=== PATIENT | male | born 1965 | race Caucasian/White ===

== ENCOUNTER → 2020-08-04 00:38 | Outpatient (CLI) | payer OTHER, SELFPAY ==
[2020-08-04 20:54] LABS: SARS-CoV-2 RNA PCR Negative
== END ==
PROVIDERS: PCP Family Medicine; Visit Provider Specialist
DX: Z01.812 Encounter for preprocedural laboratory examination (principal); Z20.822 Contact with and (suspected) exposure to COVID-19
CPT/HCPCS: C9803; U0003; U0005

== ENCOUNTER 2020-08-08 04:46 | Day surgery (SDC) | payer OTHER, SELFPAY ==
[2020-08-07 09:29] VITALS: BMI 31.5
[2020-08-08] VITALS (13 sets, daily range): BP systolic 115–131; BP diastolic 73–94; PULSE 56–64; RESP 13–22; TEMP 36.2; O2SAT 96–99; BMI 30.8
[2020-08-08 07:43] LABS: Basophils Percent Auto 0.4 % (0.2-1.2); Eosinophils Absolute Auto 0.1 K/mm3 (0-0.3); Eosinophils Percent Auto 1.9 % (0-4.4); Hematocrit 46.8 % (42.0-52.0); Hemoglobin 16.3 g/dL (14.0-18.0); Immature Granulocyte Absolute 0.03 K/mm3 (0.00-0.031); Immature Granulocyte Percent A 0.4 % (0-0.5); Lymphocytes Absolute Auto 2.14 K/mm3 (0.9-3.2); Lymphocytes Percent Auto 29.6 % (18.3-44.2); Mean Corpuscular HGB Conc 34.8 g/dl (32-36); Mean Corpuscular Hemoglobin 31.2 pg (26-34); Mean Corpuscular Volume 89.5 fl (80-100); Mean Platelet Volume 9.4 fl (7.4-10.4); Monocytes Absolute Auto 0.5 K/mm3 (0.1-0.6); Monocytes Percent Auto 6.5 % (2.6-8.5); Neutrophils Absolute Auto 4.4 K/mm3 (1.3-6.7); Neutrophils Percent Auto 61.2 % (45.5-73.1); Platelet Count Result 159 k/mm3 (150-375); Red Blood Count 5.23 M/mm3 (4.6-6.20); Red Cell Distribution Width 12.6 % (11.5-14.5); White Blood Count 7.2 K/mm3 (4.5-10.0)
[2020-08-08 07:53] LABS: Anion Gap 8 mmol/L (8-16); Blood Urea Nitrogen 17 mg/dL (9-20); Carbon Dioxide 27 mmol/L (22-30); Chloride 104 mmol/L (98-107); Estimated CRCL calculation 102 ml/min; Estimated Glomerular Filt Rate > 60; Glucose 92 mg/dL (75-110); Potassium 4.1 mmol/L (3.4-5.0); Sodium 139 mmol/L (137-145)
[2020-08-08 07:54] LABS: INR 0.9; Prothrombin Time 12.6 Seconds (11.1-14.7)
--- NOTE | 2020-08-08 09:13 | WPDMODSED ---
Moderate Sedation Note-Pt Data Patient Data Diagnosis: Coronary artery disease with previous stenting of the mid LAD episode of chest pain when exposed to cold snow shoveling 2 months ago Present Complaint: exertional dyspnea Procedure to be performed/Plan: left heart catheterization Allergies Allergy/AdvReac Type Severity Reaction Status Date / Time tramadol AdvReac Intermediate Vomiting Verified 08/08/20 07:29 hydrocodone AdvReac Unknown Nausea and Verified 08/08/20 07:29 Vomiting Home Medications Medication Instructions Recorded Confirmed Type Fish Oil 1 cap PO DAILY 02/17/19 08/07/20 History Probiotic 1 cap PO DAILY 02/17/19 08/07/20 History ascorbic acid (vitamin C) [Vitamin 500 mg PO DAILY 02/17/19 08/07/20 History C] aspirin [Aspir-Low] 81 mg PO DAILY 02/17/19 08/08/20 History clopidogrel 75 mg PO DAILY 02/17/19 08/08/20 History metoprolol succinate 25 mg PO DAILY 02/17/19 08/08/20 History rosuvastatin 5 mg PO DAILY 02/17/19 08/08/20 History vitamin B complex [B 1 tablet PO DAILY 08/07/20 08/07/20 History Complex-Vitamin B12] Current Medications: Active Medications Sodium Chloride (Normal Saline Iv) 500 mls @ 100 mls/hr IV CONT .Q5H TOMAS Sedation/Anesthesia: No previous sedation/anesthesia problems (including family history). [facility] Past Medical History Medical History CAD (coronary artery disease) Vision changes Weight gain Surgical History Surgical History Hx of heart artery stent x2 ( 1 in 2004, 1 in 2015) Family History Family History Father Family history of cardiovascular disease, Onset Age: 81 Family history of malignant neoplasm Family history of lymphoma Mother Family history of malignant neoplasm of uterus Social History Social History Smoking status: Never smoker Second hand tobacco smoke exposure: No Smoking end date: 04/13/12 Alcohol intake: never Substance use: never Living arrangements: with family Gender identity (if verbalized by the patient): Male Spiritual care concerns: No Mod Sed Physical Exam Physical Exam Pre Procedural Exam: Normal: Appearance, Throat, Airway, Lungs, Heart Size, Heart Rate, Heart Rhythm and Extremities Hours since solid foods: 12 Hours since liquid intake: 12 Internal Medicine - PN: Obj Da Vital Signs Vital Signs: Vital Signs - 24 hr 08/08/20 07:40 Temperature 36.2 C L Pulse Rate 57 L Respiratory Rate 19 Blood Pressure 131/94 H Pulse Oximetry 98 Meds/Results Medications: Active Medications Generic Name Dose Route Start Last Admin Trade Name Freq PRN Reason Stop Dose Admin Sodium Chloride 500 mls @ 100 mls/hr 08/08/20 07:00 Normal Saline Iv IV CONT .Q5H TOMAS Labs CBC & Chem 7: 08/08/20 07:30 08/08/20 07:30 Labs: Laboratory Results - last 24 hr 08/08/20 08/08/20 08/08/20 07:30 07:30 07:30 WBC 7.2 RBC 5.23 Hgb 16.3 Hct 46.8 MCV 89.5 MCH 31.2 MCHC 34.8 RDW 12.6 Plt Count 159 MPV 9.4 Immature Gran % (Auto) 0.4 Neut % (Auto) 61.2 Lymph % (Auto) 29.6 [place] % (Auto) 6.5 Eos % (Auto) 1.9 Baso % (Auto) 0.4 Lymph # (Auto) 2.14 [place] # (Auto) 0.5 Eos # (Auto) 0.1 Baso # (Auto) 0.0 Abs Immat Gran (auto) 0.03 Absolute Neuts (auto) 4.4 Absolute Nucleated RBC 0.0 Nucleated RBC % 0.0 PT 12.6 INR 0.9 Sodium 139 Potassium 4.1 Chloride 104 Carbon Dioxide 27 Anion Gap 8 BUN 17 Creatinine 0.90 Estim Creat Clear Calc 102 Estimated GFR > 60 Glucose 92 Calcium 9.0 ASA Classification/Sedation ASA Classification/Sedation ASA Class: II Emergent: No Risks: Risks, benefits and alternatives explained and patient/fa
--- NOTE | 2020-08-08 09:52 | WPDCARDPROC ---
Cardiac Cath Procedure Note Date of procedure:: 08/08/20 Performing physician:: Lonnie Merino MD Indication:: chest pain /exertional dyspnea Brief clinical history:: this is a 55-year-old man known to coronary disease who has had previous stenting of his mid LAD and 2 occasions. Stents are noted to have occluded jailed a very small mid diagonal branch. Two months ago in the extreme cold weather while snow shoveling the patient had some significant chest pain. Since then he has been experiencing increasing exertional dyspnea. Procedure Procedure performed:: Left ventriculography coronary angiography Sedation/Medication given:: fentanyl 50 mg Versed 2 mg case start time 9:23 a.m. case end time 9:39 a.m. sedation provided by Jacki Acosta RN, trained observer Access site:: right femoral artery Estimated blood loss:: 10-15 cc Procedure note:: patient was brought to the cardiac catheterization lab where the right femoral triangle was prepared and draped in usual fashion. Anesthesia was provided with 1% lidocaine infiltrated locally. Using modified Seldinger technique right femoral was punctured and a 5 [place]anian vascular sheath was placed. I then performed left heart catheterization. A 5 [place] angled pigtail catheter was used to measure left-sided hemodynamics, pullback pressures across the aortic valve and inject the left ventriculogram in the CRAWFORD projection. After this the pigtail catheter was withdrawn and replaced with 5 Tanzanian JR4 catheter this was used to engage inject the right coronary artery in 3 projections. Following this the left coronary was engaged using 5 [place] FL4 catheter which was then used to engage the left coronary artery in multiple projections. The cineangiograms were case terminated. Angiogram was done of the femoral artery through the sheath after which was elected to pull the sheath for compression. There were procedural complications. He left the laborer salvage no evidence of groin hematoma. Findings:: Hemodynamics: Central aortic pressure 1 42 over 84 left ventricle 144 over 5 end-diastolic of 15 there is no systolic gradient on pullback across the aortic valve. Left ventricle: The LV is normal in size all segments contract appropriately ejection fraction is 50-55% by visual estimation. There were no regional wall motion abnormalities identified. The left main coronary artery is nicely patent. The LAD is medium to small caliber vessel in this gentleman. There is no significant lesion in the LAD. The midportion of the vessel has 2 stents that are partially overlapping easily visible. There is no loss of lumen or stenosis in this segment of the LAD or any other segment of the vessel. The very small mid diagonal branch that is jailed by this area of stent is still patent is still visualized. There is a ostial 90% stenosis of the diagonal which is a chronic lesion seen in 2017. Circumflex is a medium caliber artery given rise to the marginal branch is angiographically it is free of disease. Right coronary artery is [id number] in caliber dominant to the posterior circulation and gives rise to an RPDA and several RPL branches. Angiographically the right coronary artery is unchanged in free of disease. Conclusion:: 1. Coronary artery disease which remains well revascularized angiographically save for a very small mid diagonal branch that is jailed by the 2 previously deployed stents in the LAD. No other significant coronary lesions are seen in the mid LAD which was stented remains widely patent no loss of lumen. 2. Normal left ventricular systolic function Lonnie Merino MD [facility]
--- NOTE | 2020-08-08 15:02 | SUR.PHASEII ---
1440- pt up to bathroom and to chair without difficulty. Groin remains WNL.
--- NOTE | 2020-08-08 16:10 | SUR.PHASEII ---
1545- D/C instructions reviewed with patient and . All questions answered at this time.
== END 2020-08-08 16:05 | disposition home or self-care (01) ==
PROVIDERS: PCP Family Medicine; Visit Provider Specialist
PROC: 4A023N7 Measurement of Cardiac Sampling and Pressure, Left Heart, Percutaneous Approach (ICD-10-PCS; CPT 93452; principal; 2020-08-08 08:30)
DX: I25.10 Atherosclerotic heart disease of native coronary artery without angina pectoris (principal); Z95.5 Presence of coronary angioplasty implant and graft; E78.5 Hyperlipidemia, unspecified; Z79.02 Long term (current) use of antithrombotics/antiplatelets; Z82.49 Family history of ischemic heart disease and other diseases of the circulatory system
CPT/HCPCS: 36415; 80048; 85025; 85610; 93458; C1887; C1894; J1644; J2250; J3010; J7040

== ENCOUNTER 2022-03-27 15:54 | Outpatient (CLI) | payer BC, SELFPAY ==
--- NOTE | ~2022-03-27 | XR_ITS ---
Clinical Indication: Pleuritic chest pain PA and lateral views of the chest: Comparison: 11/30/2017 Findings: The lungs are clear, without evidence of focal consolidation or pleural effusion. Cardiome diastinal silhouette is within normal limits. Bones and soft tissues are unremarkable. Impression: Normal chest. Reviewed, dictated and finalized at location [] AGE DIVER Impression: Normal chest.
[2022-03-27 16:25] LABS: Basophils Percent Auto 0.6 % (0.2-1.2); Eosinophils Absolute Auto 0.2 K/mm3 (0-0.3); Eosinophils Percent Auto 3.3 % (0-4.4); Hematocrit 43.3 % (42.0-52.0); Hemoglobin 14.9 g/dL (14.0-18.0); Immature Granulocyte Absolute 0.02 K/mm3 (0.00-0.031); Immature Granulocyte Percent A 0.3 % (0-0.5); Lymphocytes Absolute Auto 2.15 K/mm3 (0.9-3.2); Lymphocytes Percent Auto 30.9 % (18.3-44.2); Mean Corpuscular HGB Conc 34.4 g/dl (32-36); Mean Corpuscular Hemoglobin 30.5 pg (26-34); Mean Corpuscular Volume 88.5 fl (80-100); Mean Platelet Volume 9.4 fl (7.4-10.4); Monocytes Absolute Auto 0.7 K/mm3 (0.1-0.6); Monocytes Percent Auto 10.2 % (2.6-8.5); Neutrophils Absolute Auto 3.8 K/mm3 (1.3-6.7); Neutrophils Percent Auto 54.7 % (45.5-73.1); Platelet Count Result 180 k/mm3 (150-375); Red Blood Count 4.89 M/mm3 (4.6-6.20); Red Cell Distribution Width 12.8 % (11.5-14.5)
[2022-03-27 16:32] LABS: Alanine Aminotransferase 39 U/L (6-50); Albumin Level 4.7 g/dL (3.5-5.1); Alkaline Phosphatase 76 U/L (38-126); Anion Gap 7 mmol/L (8-16); Aspartate Amino Transferase 35 U/L (17-59); Bilirubin,Total 0.6 mg/dL (0.2-1.3); Blood Urea Nitrogen 14 mg/dL (9-20); Calcium 9.2 mg/dL (8.4-10.2); Carbon Dioxide 31 mmol/L (22-30); Chloride 98 mmol/L (98-107); Estimated Glomerular Filt Rate > 60; Glucose 97 mg/dL (65-110); Sodium 136 mmol/L (137-145)
[2022-03-27 16:56] LABS: D Dimer 0.38 ug/mL (<0.48)
== END 2022-03-27 15:55 | disposition home or self-care (01) ==
PROVIDERS: PCP Family Medicine; Visit Provider Internal Medicine Cardiovascular Disease
DX: R07.81 Pleurodynia (principal)
CPT/HCPCS: 36415; 71046; 80053; 85025; 85380

== ENCOUNTER 2022-04-15 09:53 | Outpatient (CLI) | payer BC, SELFPAY ==
--- NOTE | 2022-04-15 11:00 | NEURO_ITS ---
Impression: # History of left thoracic outlet syndrome and bilateral sciatica. Complains of shooting pain in lower extremities and bilateral hand numbness. # There is evidence of moderate, bilateral Carpal Tunnel Syndrome. # Reduced CMAPs were noted in bilateral tibial and peroneal motor nerve conduction studies, and Needle/EMG exam revealed chronic neurogenic changes in bilateral lower extremities. These findings can be seen in the setting of lower lumbosacral radiculopathy on both sides. Please note, paraspinal muscles were not examined. Motor Nerve Conduction Upper Extremities Median Nerve Conduction Velocity (m/sec) Terminal Latency (msec) Response Voltage(mV) Elbow-Wrist Wrist Elbow Wrist Right 53 6.5 4 5 Left 55 6.1 5 5 Ulnar Nerve Conduction Velocity (m/sec) Terminal Latency (msec) Response Voltage(mV) Above Elbow Below Elbow Wrist Above Elbow Below Elbow Wrist Right 50 60 2.8 7 7 8 Left 55 55 2.5 5 5 6 F-Wave Latency Median (ms) Ulnar (ms) Right 27.8 28.5 Left 28.1 28.9 Sensory Nerve Conduction Upper Extremities Median Nerve Stimulation Terminal Latency (msec) Wrist/Digit Response Voltage (uV) Wrist Right 6.1/7.0 9/23 Left 5.8/6.3 6/10 Ulnar Nerve Stimulation Terminal Latency (msec) Wrist/Digit Response Voltage (uV) Wrist Right 2.9 22 Left 3.0 16 Radial Nerve Terminal Latency (msec) Response Voltage(mV) Right 2.4 47 Left 2.2 22 Left Right Muscles Examined Fibrillation Fasciculation Scarcity Voltage Duration Left Right Left Right Left Right Left Right Left Right Deltoid Biceps X X Brachioradialis Triceps X X Pronator Teres X X Ext Indicis X X Ext Digitorum X X Abd Poll Brev X X 1st Dorsal Interosseus Paraspinals Motor Nerve Conduction Lower Extremities Peroneal Nerve Conduction Velocity (m/sec) Terminal Latency (msec) Response Voltage(mV) Popliteal space-Ankle Ankle Extensor Dig Brevis Popliteal space Ankle Right 40-37 4.5 2-2 1 Left 43-41 4.4 2-1 1 Tibial Nerve Conduction Velocity (m/sec) Terminal Latency (msec) Response Voltage(mV) Popliteal space-Ankle Ankle-Extensor Dig Brevis Popliteal space Ankle Right 43 4.3 1 1 Left 43 4.0 1 1 F-waves Peroneal Nerve (ms) Tibial Nerve (ms) Right 49.4 49.3 Left 48.6 48.8 Sensory Nerve Conduction Lower Extremities Sural Nerve Stimulation Terminal Latency (msec) Ankle Response Voltage (uV) Ankle Response Velocity (m/sec) Right 4.0 10 40 Left 3.8 13 42 Superficial Peroneal Nerve Stimulation Terminal Latency (msec) Ankle Response Voltage (uV) Ankle Response Velocity (m/sec) Right 3.8 20 42 Left 3.8 10 44 Left Right Muscles Examined Fibrillation Fasciculation Recruitment Voltage Duration Left Right Left Right Left Right Left Right Left Right X X Ant Tibialis Reduced Reduced X X Gastroc Reduced Reduced X X Fibularis Long X X Fl
== END 2022-04-15 09:54 | disposition home or self-care (01) ==
LOC: ANHNEURO 09:53
PROVIDERS: PCP Family Medicine; Visit Provider Family Medicine
DX: R20.2 Paresthesia of skin (principal)
CPT/HCPCS: 95886; 95913

== ENCOUNTER 2022-05-17 09:01 | Outpatient (CLI) | payer BC, SELFPAY ==
--- NOTE | ~2022-05-17 | MR_ITS ---
MRI of the lumbar spine Clinical History: Back pain Technique: Axial T2-weighted images, and sagittal T1-weighted, T2-weighted, and T2 fat-sat images wer e acquired. Findings: There is no fracture or subluxation of the lumbar spine. Vertebral bodies maintain normal h eight and alignment. No bone marrow signal abnormality identified. At L1-L2 and L2-L3, there is no disc bulge or herniation. No spinal canal stenosis or neural foramina l narrowing at these levels. At L3-L4, there is no disc bulge or herniation. There is mild facet joint hypertrophy. There is minim al left neural foraminal narrowing. Right neural foramen preserved. No spinal canal stenosis. At L4-L5, there is central disc protrusion superimposed upon a mild disc bulge. Facet arthropathy is also present, which contributes to severe thecal sac compression at this level. There is moderate lef t neural foraminal narrowing and mild right neural foraminal narrowing. At L5-S1, there is diffuse disc bulge and minimal facet arthropathy. No kiet spinal canal stenosis o r neural foraminal narrowing. Tiny annular fissure noted. Paravertebral soft tissues are unremarkable. Impression: Multifactorial degenerative spondylosis at L4-L5, resulting in severe thecal sac compression and bila teral neural foraminal narrowing, left worse than right. Mild degenerative spondylitic changes at L5-S1. Minimal left neural foraminal narrowing at L3-L4. Reviewed, dictated and finalized at [facility]. [employer] Impression: Multifactorial degenerative spondylosis at L4-L5, resulting in severe thecal sa c compression and bilateral neural foraminal narrowing, left worse than right. Mild degenerative spondylitic changes at L5-S1. Minimal left neural foraminal narrowing at L3-L4.
== END 2022-05-17 09:02 ==
PROVIDERS: PCP Family Medicine; Visit Provider Family Medicine
DX: M54.41 Lumbago with sciatica, right side (principal); M54.42 Lumbago with sciatica, left side; M47.896 Other spondylosis, lumbar region
CPT/HCPCS: 72148

== ENCOUNTER 2022-09-06 07:34 | Outpatient (CLI) | payer BC, SELFPAY ==
[2022-09-06 08:42] LABS: Alanine Aminotransferase 52 U/L (6-50); Albumin Level 4.8 g/dL (3.5-5.1); Alkaline Phosphatase 72 U/L (38-126); Anion Gap 11 mmol/L (8-16); Aspartate Amino Transferase 40 U/L (17-59); Bilirubin,Total 0.6 mg/dL (0.2-1.3); Blood Urea Nitrogen 15 mg/dL (9-20); Carbon Dioxide 24 mmol/L (22-30); Chloride 103 mmol/L (98-107); Cholesterol 138 mg/dL (0-200); Estimated Glomerular Filt Rate > 60; Glucose 111 mg/dL (65-110); HDL Direct 57 mg/dL; Potassium 4.2 mmol/L (3.4-5.0); Sodium 138 mmol/L (137-145); Triglycerides 74 mg/dL (<150)
[2022-09-06 08:53] LABS: LDL Cholesterol Direct 61 mg/dL
[2022-09-06 09:12] LABS: Prostate Specific Antigen 0.4 ng/mL (< OR = 4.0)
[2022-09-11 14:55] LABS: Vitamin D 1,25 (OH)2 Total 77 pg/mL (18-72); Vitamin D2 1,25 (OH)2 <8 pg/mL; Vitamin D3 1,25 (OH)2 77 pg/mL
== END 2022-09-06 07:35 | disposition home or self-care (01) ==
LOC: ANHLAB 07:36
PROVIDERS: PCP Family Medicine; Visit Provider Emergency Medicine
DX: E55.9 Vitamin D deficiency, unspecified (principal); E78.5 Hyperlipidemia, unspecified; Z12.5 Encounter for screening for malignant neoplasm of prostate
CPT/HCPCS: 36415; 80053; 80061; 82652; 84153

== ENCOUNTER 2022-11-27 06:39 | Outpatient (CLI) | payer BC, SELFPAY ==
[2022-11-27 07:44] LABS: Alanine Aminotransferase 43 U/L (6-50); Albumin Level 4.5 g/dL (3.5-5.1); Alkaline Phosphatase 79 U/L (38-126); Anion Gap 4 mmol/L (8-16); Aspartate Amino Transferase 38 U/L (17-59); Bilirubin,Total 0.5 mg/dL (0.2-1.3); Blood Urea Nitrogen 18 mg/dL (9-20); Calcium 9.1 mg/dL (8.4-10.2); Carbon Dioxide 25 mmol/L (22-30); Chloride 105 mmol/L (98-107); Cholesterol 143 mg/dL (0-200); Estimated Glomerular Filt Rate > 60; Glucose 98 mg/dL (65-110); HDL Direct 47 mg/dL; Potassium 4.1 mmol/L (3.4-5.0); Sodium 134 mmol/L (137-145); Triglycerides 155 mg/dL (<150)
[2022-11-27 07:55] LABS: LDL Cholesterol Direct 71 mg/dL
[2022-12-01 12:13] LABS: Vitamin D 1,25 (OH)2 Total 38; Vitamin D2 1,25 (OH)2 <8
[2022-12-01 12:16] LABS: Vitamin D3 1,25 (OH)2 38
== END 2022-11-27 06:40 | disposition home or self-care (01) ==
LOC: ANHLAB 06:40
PROVIDERS: PCP Emergency Medicine; Visit Provider Emergency Medicine
DX: E55.9 Vitamin D deficiency, unspecified (principal); E78.5 Hyperlipidemia, unspecified
CPT/HCPCS: 36415; 80053; 80061; 82652

== ENCOUNTER 2022-12-30 15:47 | Outpatient (CLI) | payer BC, SELFPAY ==
[2022-12-30 16:23] LABS: Anion Gap 9 mmol/L (8-16); Basophils Percent Auto 0.5 % (0.2-1.2); Blood Urea Nitrogen 13 mg/dL (9-20); Carbon Dioxide 26 mmol/L (22-30); Chloride 104 mmol/L (98-107); Eosinophils Absolute Auto 0.1 K/mm3 (0-0.3); Eosinophils Percent Auto 1.6 % (0-4.4); Estimated Glomerular Filt Rate > 60; Glucose 107 mg/dL (65-110); Hematocrit 44.1 % (42.0-52.0); Hemoglobin 15.2 g/dL (14.0-18.0); Immature Granulocyte Absolute 0.02 K/mm3 (0.00-0.031); Immature Granulocyte Percent A 0.3 % (0-0.5); Lymphocytes Absolute Auto 1.89 K/mm3 (0.9-3.2); Lymphocytes Percent Auto 30.9 % (18.3-44.2); Mean Corpuscular HGB Conc 34.5 g/dl (32-36); Mean Corpuscular Hemoglobin 30.8 pg (26-34); Mean Corpuscular Volume 89.3 fl (80-100); Mean Platelet Volume 9.6 fl (7.4-10.4); Monocytes Absolute Auto 0.4 K/mm3 (0.1-0.6); Monocytes Percent Auto 6.7 % (2.6-8.5); Neutrophils Absolute Auto 3.7 K/mm3 (1.3-6.7); Platelet Count Result 181 k/mm3 (150-375); Potassium 3.9 mmol/L (3.4-5.0); Red Blood Count 4.94 M/mm3 (4.6-6.20); Red Cell Distribution Width 12.5 % (11.5-14.5); Sodium 139 mmol/L (137-145); White Blood Count 6.1 K/mm3 (4.5-10.0)
[2022-12-30 16:24] LABS: Appearance Urine Clear (Clear); Bilirubin Urine Negative (Negative); Blood Urine Negative (Negative); Color Urine Yellow (Yellow); Glucose Urine UA Negative (Negative); Ketones Urine Negative (Negative); Leukocyte Esterase Ur Negative LEU/UL (Negative); Nitrate Urine Negative (Negative); Protein Urine Negative (Negative); Specific Grav Ur 1.022 (1.001-1.035); Urobilinogen Urine 0.2 mg/dL (<2.0)
[2022-12-30 16:25] LABS: Add Urine Microscopic? NO
[2022-12-30 16:38] LABS: INR 1.1; Prothrombin Time 14.6 Seconds (11.1-14.7)
== END 2022-12-30 15:48 | disposition home or self-care (01) ==
LOC: ANHLAB 15:50
PROVIDERS: PCP Emergency Medicine; Visit Provider Neurological Surgery
DX: Z01.818 Encounter for other preprocedural examination (principal)
CPT/HCPCS: 36415; 80048; 81003; 85025; 85610; 85730

== ENCOUNTER 2023-02-18 06:51 | Outpatient (CLI) | payer BC, SELFPAY ==
[2023-02-18 08:05] LABS: Alanine Aminotransferase 53 U/L (6-50); Albumin Level 4.5 g/dL (3.5-5.1); Alkaline Phosphatase 74 U/L (38-126); Anion Gap 7 mmol/L (8-16); Aspartate Amino Transferase 38 U/L (17-59); Bilirubin,Total 0.7 mg/dL (0.2-1.3); Blood Urea Nitrogen 22 mg/dL (9-20); Calcium 9.2 mg/dL (8.4-10.2); Carbon Dioxide 27 mmol/L (22-30); Chloride 102 mmol/L (98-107); Cholesterol 143 mg/dL (0-200); Estimated Glomerular Filt Rate > 60; Glucose 88 mg/dL (65-110); HDL Direct 70 mg/dL; Potassium 3.7 mmol/L (3.4-5.0); Sodium 136 mmol/L (137-145); Triglycerides 134 mg/dL (<150)
[2023-02-18 08:15] LABS: LDL Cholesterol Direct 54 mg/dL
[2023-02-18 08:25] LABS: Vitamin D 25 Hydroxy 43.5 ng/mL
== END 2023-02-18 06:52 | disposition home or self-care (01) ==
LOC: ANHLAB 06:52
PROVIDERS: PCP Emergency Medicine; Visit Provider Emergency Medicine
DX: E78.5 Hyperlipidemia, unspecified (principal); E55.9 Vitamin D deficiency, unspecified
CPT/HCPCS: 36415; 80053; 80061; 82306

== ENCOUNTER 2023-03-11 16:24 | Outpatient (CLI) | payer BC, SELFPAY ==
[2023-03-11 17:09] LABS: Anion Gap 12 mmol/L (8-16); Blood Urea Nitrogen 11 mg/dL (9-20); Calcium 9.3 mg/dL (8.4-10.2); Carbon Dioxide 23 mmol/L (22-30); Chloride 102 mmol/L (98-107); Estimated Glomerular Filt Rate > 60; Glucose 157 mg/dL (65-110); Potassium 3.7 mmol/L (3.4-5.0); Sodium 137 mmol/L (137-145)
[2023-03-11 17:12] LABS: Basophils Percent Auto 0.4 % (0.2-1.2); Eosinophils Absolute Auto 0.1 K/mm3 (0-0.3); Eosinophils Percent Auto 2.1 % (0-4.4); Hematocrit 44.3 % (42.0-52.0); Hemoglobin 14.9 g/dL (14.0-18.0); Immature Granulocyte Absolute 0.02 K/mm3 (0.00-0.031); Immature Granulocyte Percent A 0.3 % (0-0.5); Lymphocytes Percent Auto 29.4 % (18.3-44.2); Mean Corpuscular HGB Conc 33.6 g/dl (32-36); Mean Corpuscular Hemoglobin 30.4 pg (26-34); Mean Corpuscular Volume 90.4 fl (80-100); Monocytes Absolute Auto 0.6 K/mm3 (0.1-0.6); Monocytes Percent Auto 8.2 % (2.6-8.5); Neutrophils Absolute Auto 4.1 K/mm3 (1.3-6.7); Neutrophils Percent Auto 59.6 % (45.5-73.1); Platelet Count Result 192 k/mm3 (150-375); White Blood Count 6.8 K/mm3 (4.5-10.0)
[2023-03-11 18:01] LABS: Appearance Urine Clear (Clear); Bilirubin Urine Negative (Negative); Blood Urine Negative (Negative); Color Urine Yellow (Yellow); Glucose Urine UA Negative (Negative); Ketones Urine Negative (Negative); Leukocyte Esterase Ur Negative LEU/UL (Negative); Nitrate Urine Negative (Negative); Protein Urine Negative (Negative); Specific Grav Ur 1.016 (1.001-1.035); Urobilinogen Urine 0.2 mg/dL (<2.0); pH Urine 5.5 (5.0-9.0)
[2023-03-11 18:02] LABS: Prothrombin Time 13.2 Seconds (11.1-14.7)
[2023-03-11 18:18] LABS: Add Urine Microscopic? YES
== END 2023-03-11 16:25 | disposition home or self-care (01) ==
LOC: ANHLAB 16:27
PROVIDERS: PCP Emergency Medicine
DX: Z01.818 Encounter for other preprocedural examination (principal)
CPT/HCPCS: 36415; 80048; 81001; 85025; 85610; 85730

== ENCOUNTER 2023-05-09 14:17 | Emergency (ER) | payer BC, SELFPAY ==
--- NOTE | ~2023-05-09 | XR_ITS ---
EXAMINATION: XR chest 2V Exam Date/Time: 05/09/2023 15:00 COURT [facility]AILIFF OR SHERIFF HISTORY: Chest pain h/a sciatica recent surg leaky spinal fluid Comparison: 03/27/2022. RESULT: Lines, tubes, and devices: Right upper extremity PICC terminates in the lower SVC. Coronary stent/st ents. Lungs and pleura: Clear. Cardiomediastinal silhouette: Stable. Other: No acute osseous or upper abdominal finding. IMPRESSION: No acute cardiopulmonary process. Reviewed, dictated and finalized at location K. T BAILIFF OR SHERIFF
[2023-05-09 14:46] VITALS: BP 141/91; PULSE 102; RESP 18; TEMP 36.9; O2SAT 99
--- NOTE | 2023-05-09 14:50 | ECG_ITS ---
Measurements Intervals [place] Rate: 98 P: 70 IN: 143 QRS: -3 QRSD: 82 T: 49 QT: 328 QTc: 419 Interpretive Statements SINUS RHYTHM INCOMPLETE RIGHT BUNDLE BRANCH BLOCK DELAYED PRECORDIAL R/S TRANSITION BASELINE ARTIFACT- I, III, AVR, AVL, AVF BORDERLINE ECG COMPARED TO ECG 05/15/2018 07:14:47 NO SIGNIFICANT CHANGES Electronically Signed On 05-09-2023 16:11:30 PHOTOGRAPHER MOTION PICTURE by Armani Fisher D.O.
--- NOTE | 2023-05-09 14:50 | PC.NURSE ---
pt states he is having chest pain when this nurse was taking vitals. Pt states he has cp of an 8.
[2023-05-09 15:13] LABS: Basophils Absolute Auto 0.1 K/mm3 (0.0-0.1); Basophils Percent Auto 0.6 % (0.2-1.2); Eosinophils Absolute Auto 0.1 K/mm3 (0-0.3); Hematocrit 42.3 % (42.0-52.0); Hemoglobin 13.7 g/dL (14.0-18.0); Immature Granulocyte Absolute 0.07 K/mm3 (0.00-0.031); Immature Granulocyte Percent A 0.7 % (0-0.5); Lymphocytes Absolute Auto 1.92 K/mm3 (0.9-3.2); Lymphocytes Percent Auto 18.7 % (18.3-44.2); Mean Corpuscular HGB Conc 32.4 g/dl (32-36); Mean Corpuscular Hemoglobin 29.5 pg (26-34); Mean Corpuscular Volume 91.2 fl (80-100); Mean Platelet Volume 9.6 fl (7.4-10.4); Monocytes Absolute Auto 0.7 K/mm3 (0.1-0.6); Monocytes Percent Auto 6.7 % (2.6-8.5); Neutrophils Absolute Auto 7.5 K/mm3 (1.3-6.7); Neutrophils Percent Auto 72.3 % (45.5-73.1); Platelet Count Result 273 k/mm3 (150-375); Red Blood Count 4.64 M/mm3 (4.6-6.20); Red Cell Distribution Width 13.3 % (11.5-14.5); White Blood Count 10.3 K/mm3 (4.5-10.0)
[2023-05-09 15:24] LABS: Alanine Aminotransferase 39 U/L (6-50); Albumin Level 4.4 g/dL (3.5-5.1); Alkaline Phosphatase 95 U/L (38-126); Anion Gap 14 mmol/L (8-16); Aspartate Amino Transferase 33 U/L (17-59); Bilirubin,Total 0.6 mg/dL (0.2-1.3); Blood Urea Nitrogen 9 mg/dL (9-20); Calcium 9.7 mg/dL (8.4-10.2); Carbon Dioxide 20 mmol/L (22-30); Chloride 105 mmol/L (98-107); Estimated CRCL calculation 117 ml/min; Estimated Glomerular Filt Rate > 60; Glucose 130 mg/dL (65-110); Lipase 53 U/L (23-300); Potassium 3.8 mmol/L (3.4-5.0); Sodium 139 mmol/L (137-145)
[2023-05-09 15:36] LABS: Troponin I < 0.012 ng/mL (0.000-0.034)
--- NOTE | 2023-05-09 17:37 | PC.NURSE ---
pt states he thinks the spinal fluid as spotted leaking as the patch on his back isn't getting wet and his headache as decreased. pt states he is just going to go home and lay down because he feels like that is what would be best. pt departs ED lobby with .
== END 2023-05-09 18:00 | disposition left against medical advice (07) ==
PROVIDERS: Emergency Provider Emergency Medicine; PCP Emergency Medicine
DX: R51.9 Headache, unspecified (principal)
CPT/HCPCS: 36415; 71046; 80053; 83690; 84484; 85025; 93005; 99199

== ENCOUNTER 2023-05-20 11:42 | Outpatient (CLI) | payer BC, SELFPAY ==
[2023-05-20 12:24] LABS: Hematocrit 40.6 % (42.0-52.0); Hemoglobin 13.2 g/dL (14.0-18.0); Mean Corpuscular HGB Conc 32.5 g/dl (32-36); Mean Corpuscular Hemoglobin 29.3 pg (26-34); Mean Platelet Volume 9.8 fl (7.4-10.4); Platelet Count Result 274 k/mm3 (150-375); Red Blood Count 4.51 M/mm3 (4.6-6.20); White Blood Count 6.8 K/mm3 (4.5-10.0)
[2023-05-20 12:39] LABS: Anion Gap 11 mmol/L (8-16); Blood Urea Nitrogen 11 mg/dL (9-20); Calcium 9.9 mg/dL (8.4-10.2); Carbon Dioxide 24 mmol/L (22-30); Chloride 104 mmol/L (98-107); Estimated Glomerular Filt Rate > 60; Glucose 87 mg/dL (65-110); Potassium 3.6 mmol/L (3.4-5.0); Sodium 139 mmol/L (137-145)
== END 2023-05-20 11:43 | disposition home or self-care (01) ==
LOC: ANHLAB 11:44
PROVIDERS: PCP Emergency Medicine; Visit Provider Emergency Medicine
DX: E78.5 Hyperlipidemia, unspecified (principal); R53.83 Other fatigue; E03.9 Hypothyroidism, unspecified
CPT/HCPCS: 36415; 36591; 80048; 84443; 85027; 99202; G0463

== ENCOUNTER 2023-05-22 13:43 | Outpatient (CLI) | payer BC, SELFPAY ==
--- NOTE | ~2023-05-22 | CT_ITS ---
EXAMINATION: CT abdomen pelvis w con INDICATION: Unspecified abdominal pain TECHNIQUE: Computed tomographic images of the abdomen and pelvis were obtained after the administrati on of 100 cc of Omnipaque 350 intravenous contrast. The dose-length product (DLP) was 1318.97 mGy-cm. Automated exposure control and iterative reconstruction technique were employed. COMPARISON: None available FINDINGS: Minimal dependent atelectasis is present in the lung bases. The heart size is normal. Calci fied coronary artery atherosclerosis is noted. The liver is diffusely low in attenuation when compare d with the spleen, consistent with hepatic steatosis. Splenomegaly is noted. The pancreas and adrenal glands are normal. Stones or sludge are present in the nondistended gallbladder. There is a 2 mm non obstructing stone of the right kidney. The left kidney is unremarkable. An enlarged left external pamela ac chain lymph node measures 1.3 cm in short axis. No free intraperitoneal gas or evidence of bowel o bstruction. The appendix is normal. There is calcified atherosclerosis of the aorta and many of the o ther arteries. There is mild lumbar spondylosis. There are laminectomy changes at L4. There is a 3.0 x 1.5 cm fluid collection containing gas in the m idline at the area previously occupied by the L4 spinous process. There are minimal erosive changes o f the inferior endplate of L4 in the superior endplate of L5. There is soft tissue edema between the L3 and L5 spinous processes extending posteriorly into the subcutaneous tissues. IMPRESSION: 1. Findings suggestive of discitis and osteomyelitis at L4-5 with possible interspinous abscess at th e level of L4. 2. Splenomegaly. 3. Mild left pelvic lymphadenopathy, likely reactive. 4. Cholelithiasis without evidence of cholecystitis. Phone call was placed to the exchange at 1713 hours on 05/22/2023. Report will be addended when results are communicated. Reviewed, dictated and finalized at location B. [employer] IMPRESSION: 1. Findings suggestive of discitis and osteomyelitis at L4-5 with possible inte rspinous abscess at the level of L4. 2. Splenomegaly. 3. Mild left pelvic lymphadenopathy, likely reactive. 4. Cholelithiasis without evidence of cholecystitis. Phone call was placed to the exchange at 1713 hours on 05/22/2023. Report will be addended when results are communicated.
== END 2023-05-22 13:44 | disposition home or self-care (01) ==
PROVIDERS: PCP Emergency Medicine; Visit Provider Emergency Medicine
DX: R10.9 Unspecified abdominal pain (principal); R16.1 Splenomegaly, not elsewhere classified; K80.20 Calculus of gallbladder without cholecystitis without obstruction
CPT/HCPCS: 74177; Q9967

== ENCOUNTER 2023-05-28 11:02 | Outpatient (CLI) | payer BC, SELFPAY ==
--- NOTE | 2023-06-02 12:49 | WPDNEUROLOGY ---
Neurology EEG Report General Information Date of Study: 05/28/23 TEST eeg DIAGNOSIS unspecified convulsions CONDITION OF RECORDING awake drowsy and sleep EEG NUMBER [id number] CLINICAL HISTORY patient reports he has been through several back surgeries in the last couple of months due to infection and losing spinal fluid. With all this he has had 3 episodes in last 3 weeks of uncontrollable shaking. Episodes does not last long. He denies any loss of consciousness or confusion. EEG DESCRIPTION Basic resting occipital frequency consists of low voltage 9 to 11 hertz per 2nd alpha posteriorly admixed with low-voltage 15 to 18 hertz per 2nd beta. Low-voltage beta activity seen diffusely admixed with intermittent low voltage 5 to 6 hertz per 2nd theta activity. Bilateral symmetrical sleep activity is noted with normal and symmetrical sleep spindles. Multiple movement artifacts are also seen in addition to EKG artifact. Photic stimulation produced normal drive. Hyperventilation not done. Non paroxysmal. Nonfocal. Nonlateralizing. IMPRESSION Normal record
== END 2023-05-28 11:03 | disposition home or self-care (01) ==
LOC: ANHNEURO 11:03
PROVIDERS: PCP Emergency Medicine; Visit Provider Emergency Medicine
DX: R56.9 Unspecified convulsions (principal)
CPT/HCPCS: 95816

== ENCOUNTER 2023-06-02 14:03 | Outpatient (CLI) | payer BC, SELFPAY ==
--- NOTE | ~2023-06-02 | US_ITS ---
EXAMINATION: US art doppler w press LE DATE: 06/02/2023 15:08 INDICATION: Peripheral vascular disease, unspecified. TECHNIQUE: Segmental pressures and plethysmographic and Doppler waveforms of the brachial and lower e xtremity arteries were obtained. COMPARISON: Arterial Doppler and segmental pressures 02/27/16 FINDINGS: The right brachial artery pressure was not measured due to the catheter in the right upper limb. Left brachial artery pressure is 134 mm Hg. The right low-thigh pressure index is 1.21. The right ankle-brachial index (ORI) is 1.10 (normal >= 0 .9-1.0). The right great toe-brachial index (TBI) is 0.68 (normal >= 0.65). Arterial Doppler waveform s are at least triphasic from common femoral artery to popliteal artery and at least biphasic at the ankle. The left low-thigh pressure index is 1.42. The left ORI is 1.11. The left TBI is 0.90. Arterial Doppl er waveforms are biphasic in common femoral artery, at least triphasic in superficial femoral artery and popliteal artery, and biphasic at the ankle. IMPRESSION: 1. No significant arterial occlusive disease. Reviewed, dictated and finalized at location E. [employer]
== END 2023-06-02 14:04 | disposition home or self-care (01) ==
LOC: ANHIMG 14:04
PROVIDERS: PCP Emergency Medicine; Visit Provider Emergency Medicine
DX: I73.9 Peripheral vascular disease, unspecified (principal)
CPT/HCPCS: 93923

== ENCOUNTER 2023-07-21 11:42 | Emergency (ER) | payer BC, SELFPAY ==
[2023-07-21 11:45] VITALS: BP 140/84; PULSE 87; RESP 18; TEMP 36.4; O2SAT 98
--- NOTE | 2023-07-21 12:20 | PC.NURSE ---
RN agree with Angela Mcbride student nurse assessment & documentation
[2023-07-21 12:58] LABS: Basophils Percent Auto 0.4 % (0.2-1.2); Eosinophils Absolute Auto 0.2 K/mm3 (0-0.3); Eosinophils Percent Auto 2.4 % (0-4.4); Hematocrit 35.4 % (42.0-52.0); Hemoglobin 11.5 g/dL (14.0-18.0); Immature Granulocyte Absolute 0.03 K/mm3 (0.00-0.031); Immature Granulocyte Percent A 0.4 % (0-0.5); Lymphocytes Absolute Auto 1.56 K/mm3 (0.9-3.2); Lymphocytes Percent Auto 21.9 % (18.3-44.2); Mean Corpuscular HGB Conc 32.5 g/dl (32-36); Mean Corpuscular Hemoglobin 27.3 pg (26-34); Mean Corpuscular Volume 84.1 fl (80-100); Mean Platelet Volume 9.7 fl (7.4-10.4); Monocytes Absolute Auto 0.7 K/mm3 (0.1-0.6); Monocytes Percent Auto 9.4 % (2.6-8.5); Neutrophils Absolute Auto 4.7 K/mm3 (1.3-6.7); Neutrophils Percent Auto 65.5 % (45.5-73.1); Platelet Count Result 221 k/mm3 (150-375); Red Blood Count 4.21 M/mm3 (4.6-6.20); Red Cell Distribution Width 14.1 % (11.5-14.5); White Blood Count 7.1 K/mm3 (4.5-10.0)
[2023-07-21 13:20] LABS: Alanine Aminotransferase 20 U/L (6-50); Albumin Level 4.3 g/dL (3.5-5.1); Alkaline Phosphatase 84 U/L (38-126); Anion Gap 11 mmol/L (4-12); Aspartate Amino Transferase 24 U/L (17-59); Bilirubin,Total 0.7 mg/dL (0.2-1.3); Blood Urea Nitrogen 12 mg/dL (9-20); Calcium 9.4 mg/dL (8.4-10.2); Carbon Dioxide 25 mmol/L (22-30); Chloride 100 mmol/L (98-107); Estimated CRCL calculation 127 ml/min; Estimated Glomerular Filt Rate > 60; Glucose 110 mg/dL (65-110); Potassium 3.7 mmol/L (3.4-5.0); Sodium 136 mmol/L (137-145)
[2023-07-21 13:30] VITALS: BP 116/74; PULSE 68; RESP 16; TEMP 36.6; O2SAT 98
[2023-07-21 14:09] LABS: CRP 14.3 mg/dL (<1.0)
[2023-07-21 14:27] VITALS: BP 129/79; PULSE 76; RESP 16; O2SAT 98
[2023-07-21] MEDS: methylPREDNISolone SOD SUCC 40 MG VIAL IV PUSH (14:53)
[2023-07-21 15:02] VITALS: BP 124/77; PULSE 73; RESP 18; O2SAT 97
--- NOTE | 2023-07-21 15:08 | ED.SKABFB ---
HPI - Skin/Abscess/Foreign Bdy General Chief complaint: Skin/Abscess/Foreign Body Stated complaint: rash Time Seen by Provider: 07/21/23 12:05 History of Present Illness HPI narrative: Patient presenting here with rash on his bilateral hands, face, back of his neck, he first noticed it a few days ago starting 3 days ago on his R hand and it spread to his left and then to his neck. Not itchy but irritable. Denies any recent exposures that he can think of, he does not go outside, he does have a PICC line that he is receiving antibiotics through but he has had the same antibiotics for 6 weeks without issues. Related Data Home Medications Medication Instructions Recorded Confirmed Lactobacillus 40-Bifidobact 1 cap PO DAILY 02/17/19 07/08/23 3-S.thermophilus 100 billion cell capsule (Probiotic) aspirin 81 mg tablet,delayed 81 mg PO DAILY 02/17/19 07/08/23 release (Aspir-Low) clopidogrel 75 mg tablet 75 mg PO DAILY 02/17/19 07/08/23 metoprolol succinate 25 mg 25 mg PO DAILY 02/17/19 07/08/23 tablet,extended release 24 hr rosuvastatin 5 mg tablet 5 mg PO DAILY 02/17/19 07/08/23 vitamin B complex (B 1 tablet PO DAILY 08/07/20 05/20/23 Complex-Vitamin B12 tablet) ascorbic acid (vitamin C) 500 mg 2,000 mg PO DAILY 02/25/23 07/08/23 capsule,extended release (Vitamin C) oxycodone-acetaminophen 5 mg-325 1 tablet PO Q6H PRN 06/04/23 07/08/23 mg tablet Allergies Allergy/AdvReac Type Severity Reaction Status Date / Time tramadol AdvReac Intermediate Vomiting Verified 07/21/23 11:50 hydrocodone AdvReac Unknown Nausea and Verified 07/21/23 11:50 Vomiting Review of Systems Review of Systems: CONST: No fever. HEENT: No sore throat C/V: No chest pain RESP: No cough GI: No abdominal pain : No dysuria. M/S: No joint pain. SKIN: Rash to bilateral hands, back of neck NEURO: [No headache or focal numbness or weakness] PSYCH: [No depression] PMFSH Past Medical History Medical History Antiplatelet or antithrombotic long-term use CAD (coronary artery disease) Encounter for other specified surgical aftercare Rotator cuff tear, right Traumatic tear of right rotator cuff Trigger thumb of right hand Umbilical hernia without obstruction and without gangrene Vision changes Weight gain Surgical History Surgical History H/O discectomy History of back surgery Hx of heart artery stent x2 ( 1 in 2004, 1 in 2015) S/P right rotator cuff repair Family History Family History Father Family history of cardiovascular disease, Onset Age: 81 Family history of malignant neoplasm Family history of lymphoma Mother Family history of malignant neoplasm of uterus Social History Social History (Updated 07/08/23 @ 13:13 by Nubia Otero MA) Smoking status: Never smoker Second hand tobacco smoke exposure: No Smoking end date: 04/13/12 Alcohol intake: never Substance use: never Do You Feel Safe in your Home?: Yes Current Housing: Decline to Answer Concerned About Future Housing: Decline to Answer Difficulty Paying Gas/Electric Bills: Decline to Answer Difficulty Paying for Meds: Decline to Answer Currently Unemployed: Decline to Answer Education: Decline to Answer Difficulty w/ Childcare or Family Care: Decline to Answer Living arrangements: with family Gender identity (if verbalized by the patient): Male Spiritual care concerns: No Exam Narrative: EXAMINATION OF ORGAN SYSTEMS/BODY AREAS: Constitutional: Vital signs per nursing GENERAL:[No acute distress, non-toxic appearing.] HEAD: Normal with no signs of head trauma. EYES: EOMI, conjunctiva normal ENT: Hearing grossly intact LUNGS: Nonlabored breathing. HEART: [Regular rate and rhythm] ABD: [Soft], [nontender to palpation] EXT: Normal r
[2023-07-21 15:22] LABS: Erythrocyte Sedimentation Rate 81 mm/hr (0-20)
== END 2023-07-21 15:03 | disposition home or self-care (01) ==
PROVIDERS: Emergency Provider Emergency Medicine; PCP Nurse Practitioner Family
DX: L98.9 Disorder of the skin and subcutaneous tissue, unspecified (principal); I25.10 Atherosclerotic heart disease of native coronary artery without angina pectoris; Z95.5 Presence of coronary angioplasty implant and graft; Z87.891 Personal history of nicotine dependence; Z79.82 Long term (current) use of aspirin
CPT/HCPCS: 36415; 80053; 85025; 85652; 86140; 96374; 99284; J2919

== ENCOUNTER 2023-08-12 07:59 | Outpatient (CLI) | payer BC, SELFPAY ==
--- NOTE | ~2023-08-12 | CT_ITS ---
CT of the Abdomen and Pelvis: Indication: Abdominal pain Technique: 2.5 mm axial scans were obtained through the abdomen and pelvis following intravenous adm inistration of 100 cc of Omnipaque 350. Dose reduction technique was used on this scan by utilizing a utomated exposure control and iterative reconstruction technique. The dose-length product (DLP) was 7 47.35 mGy-cm. COMPARISON: 05/22/2023 Findings: Scans through the lung bases are unremarkable. The liver, pancreas, gallbladder, adrenals and left kidney are within normal limits. 3 mm nonobstruct ing right renal stone present. Stable splenomegaly. There are atherosclerotic calcifications of the a steph. There are mildly enlarged left periaortic lymph nodes.. No bowel obstruction or bowel wall thickening. There is no evidence to suggest acute appendicitis. Images through the pelvis were performed. Urinary bladder unremarkable. No pelvic mass seen. No ascit es. There are worsening erosive changes about the L4-L5 disc space with increasing sclerotic change, comp atible with worsening osteomyelitis/discitis at the L4-L5 level. Probable small right paravertebral/p soas abscess is present, measuring 1.6 cm in diameter (axial image 118). Impression: Worsening erosive changes about the L4-L5 disc space with increasing stenosis, compatible with worsen ing osteomyelitis/discitis at the L4-L5 level. Small right paravertebral/psoas abscess, as detailed above. Increasing left periaortic lymph nodes, and mild haziness in the retroperitoneum, presumably reactive related to the nearby discitis. Stable splenomegaly. Reviewed, dictated and finalized at location M. Impression: Worsening erosive changes about the L4-L5 disc space with increasing stenosis, compatible with worsening osteomyelitis/discitis at the L4-L5 level. Small right paravertebral/psoas abscess, as detailed above. Increasing left periaortic lymph nodes, and mild haziness in the retroperitoneu m, presumably reactive related to the nearby discitis. Stable splenomegaly.
== END 2023-08-12 08:00 | disposition home or self-care (01) ==
PROVIDERS: PCP Nurse Practitioner Family; Visit Provider Nurse Practitioner Family
DX: R10.9 Unspecified abdominal pain (principal); R59.0 Localized enlarged lymph nodes; R16.1 Splenomegaly, not elsewhere classified
CPT/HCPCS: 74177; Q9967

== ENCOUNTER 2023-10-08 12:45 | Outpatient (CLI) | payer BC, SELFPAY ==
--- NOTE | ~2023-10-08 | US_ITS ---
Abdominal Sonogram: Real-time sonographic imaging of the abdomen was performed. Clinical History: Abnormal serum enzyme levels Findings: The liver appears echogenic, with no evidence of mass lesion or bile duct dilatation. Main portal vein demonstrates normal direction of flow. The spleen is mildly enlarged, at 14.2 cm in nicolas th. The gallbladder is well distended, and appears normal with no evidence of gallstone or wall thic kening. The common bile duct measures 5 mm. The visualized pancreas, aorta, and IVC are unremarkable . The right kidney measures 10.6 cm in length and the left kidney measures 10.8 cm. There is no hyd ronephrosis or renal calculus. Impression: Diffuse fatty infiltration of the liver. Mild splenomegaly. Reviewed, dictated and finalized at location . Impression: Diffuse fatty infiltration of the liver. Mild splenomegaly.
== END 2023-10-08 12:46 ==
LOC: MICIMG 12:46
PROVIDERS: PCP Nurse Practitioner Family; Visit Provider Nurse Practitioner Family
DX: R74.8 Abnormal levels of other serum enzymes (principal); K76.0 Fatty (change of) liver, not elsewhere classified; R16.1 Splenomegaly, not elsewhere classified
CPT/HCPCS: 76700

== ENCOUNTER 2023-12-22 15:24 | Outpatient (CLI) | payer BC, SELFPAY ==
--- NOTE | ~2023-12-22 | MR_ITS ---
EXAMINATION: MR ankle LT wo con DATE: 12/22/2023 16:12 INDICATION: Left ankle and heel pain, swelling, rule out stress fracture or Achilles tendon tear, TECHNIQUE: Magnetic resonance imaging (MRI) of the left ankle was performed without intravenous contr ast. Sequences included sagittal, coronal, and axial proton-density weighted fast spin echo without a nd with fat saturation. COMPARISON: None. FINDINGS: Medial ankle ligaments: Deep and superficial deltoid ligaments as well as the spring ligament are normal. Lateral ankle ligaments: The anterior and posterior inferior tibiofibular ligaments are normal. The anterior talofibular, calc aneofibular and posterior talofibular ligaments are normal. Tendons: Achilles tendon is minimally thickened but otherwise intact. The peroneus longus tendon is intact. Lo ngitudinal split type tear of the peroneus brevis tendon. Fluid within the tendon sheaths of both the peroneus longus and brevis tendons The tibialis anterior and extensor hallucis longus and extensor d igitorum longus tendons are normal. Thickening and irregularity of the distal tibialis posterior tend on at its proximal insertion. The flexor digitorum longus and flexor hallucis longus tendons are norm al. Plantar fascia: Mild thickening proximally, with mild adjacent edema. Bones/other: Very minimal, focal high signal within the calcaneus at the origin of the plantar fascia and in the m id/lateral portion of the calcaneal body. Prominent os trigonum without inflammatory change. Fluid: No significant fluid collection IMPRESSION: Mild tendinopathy of the Achilles tendon. Partial tear of the tibialis posterior. Longitudinal split type tear of the peroneus brevis tendon. Peroneus longus and brevis tenosynovitis. Minimal marrow edema at the origin of the posterior fascia with findings suggestive of mild proximal plantar fasciitis. Small focus of marrow edema/contusion in the body of the calcaneus. No overt fracture or microfractur e detected. Reviewed, dictated and finalized at location K. IMPRESSION: Mild tendinopathy of the Achilles tendon. Partial tear of the tibialis posterior. Longitudinal split type tear of the peroneus brevis tendon. Peroneus longus and brevis tenosynovitis. Minimal marrow edema at the origin of the posterior fascia with findings sugges tive of mild proximal plantar fasciitis. Small focus of marrow edema/contusion in the body of the calcaneus. No overt fr acture or microfracture detected.
== END 2023-12-22 15:25 | disposition home or self-care (01) ==
LOC: GOSHIMG 15:25
PROVIDERS: PCP Nurse Practitioner Family; Visit Provider Nurse Practitioner Family
DX: M25.572 Pain in left ankle and joints of left foot (principal); M25.472 Effusion, left ankle
CPT/HCPCS: 73721

== ENCOUNTER 2024-02-16 07:00 | Outpatient (CLI) | payer BC, SELFPAY ==
[2024-02-16 08:05] LABS: Anion Gap 13 mmol/L (4-12); Blood Urea Nitrogen 14 mg/dL (9-20); Calcium 9.2 mg/dL (8.4-10.2); Carbon Dioxide 25 mmol/L (22-30); Chloride 101 mmol/L (98-107); Estimated Glomerular Filt Rate > 60; Glucose 116 mg/dL (65-110); Sodium 139 mmol/L (137-145)
== END 2024-02-16 07:01 | disposition home or self-care (01) ==
PROVIDERS: PCP Nurse Practitioner Family; Visit Provider Physician Assistant
DX: Z51.81 Encounter for therapeutic drug level monitoring (principal)
CPT/HCPCS: 36415; 80048

== ENCOUNTER 2024-04-20 07:05 | Outpatient (CLI) | payer BC, SELFPAY ==
[2024-04-20 08:14] LABS: Basophils Percent Auto 0.4 % (0.2-1.2); Eosinophils Absolute Auto 0.2 K/mm3 (0-0.3); Eosinophils Percent Auto 3.1 % (0-4.4); Hematocrit 45.4 % (42.0-52.0); Hemoglobin 15.9 g/dL (14.0-18.0); Immature Granulocyte Absolute 0.03 K/mm3 (0.00-0.031); Immature Granulocyte Percent A 0.4 % (0-0.5); Lymphocytes Absolute Auto 2.05 K/mm3 (0.9-3.2); Lymphocytes Percent Auto 30.1 % (18.3-44.2); Mean Corpuscular Hemoglobin 31.3 pg (26-34); Mean Corpuscular Volume 89.4 fl (80-100); Mean Platelet Volume 9.8 fl (7.4-10.4); Monocytes Absolute Auto 0.6 K/mm3 (0.1-0.6); Monocytes Percent Auto 8.1 % (2.6-8.5); Neutrophils Absolute Auto 3.9 K/mm3 (1.3-6.7); Neutrophils Percent Auto 57.9 % (45.5-73.1); Platelet Count Result 165 k/mm3 (150-375); Red Blood Count 5.08 M/mm3 (4.6-6.20); Red Cell Distribution Width 13.2 % (11.5-14.5); White Blood Count 6.8 K/mm3 (4.5-10.0)
[2024-04-20 10:18] LABS: Alanine Aminotransferase 29 U/L (6-50); Albumin Level 4.6 g/dL (3.5-5.1); Alkaline Phosphatase 75 U/L (38-126); Anion Gap 7 mmol/L (4-12); Aspartate Amino Transferase 33 U/L (17-59); Bilirubin,Total 0.8 mg/dL (0.2-1.3); Blood Urea Nitrogen 15 mg/dL (9-20); CRP < 0.5 mg/dL (<1.0); Calcium 9.1 mg/dL (8.4-10.2); Carbon Dioxide 27 mmol/L (22-30); Chloride 105 mmol/L (98-107); Estimated Glomerular Filt Rate > 60; Glucose 75 mg/dL (65-110); Sodium 139 mmol/L (137-145)
== END 2024-04-20 07:06 | disposition home or self-care (01) ==
LOC: ANHLAB 07:08
PROVIDERS: PCP Nurse Practitioner Family; Visit Provider Physician Assistant
DX: M46.46 Discitis, unspecified, lumbar region (principal); Z51.81 Encounter for therapeutic drug level monitoring; Z79.899 Other long term (current) drug therapy
CPT/HCPCS: 36415; 80053; 85025; 86140

== ENCOUNTER 2024-06-13 06:52 | Outpatient (CLI) | payer BC, SELFPAY ==
[2024-06-13 07:52] LABS: Basophils Percent Auto 0.6 % (0.2-1.2); Eosinophils Absolute Auto 0.2 K/mm3 (0-0.3); Hematocrit 45.2 % (42.0-52.0); Hemoglobin 15.6 g/dL (14.0-18.0); Immature Granulocyte Absolute 0.03 K/mm3 (0.00-0.031); Immature Granulocyte Percent A 0.4 % (0-0.5); Lymphocytes Absolute Auto 2.01 K/mm3 (0.9-3.2); Lymphocytes Percent Auto 29.9 % (18.3-44.2); Mean Corpuscular HGB Conc 34.5 g/dl (32-36); Mean Corpuscular Hemoglobin 30.7 pg (26-34); Mean Platelet Volume 9.6 fl (7.4-10.4); Monocytes Absolute Auto 0.5 K/mm3 (0.1-0.6); Monocytes Percent Auto 6.7 % (2.6-8.5); Neutrophils Percent Auto 59.4 % (45.5-73.1); Platelet Count Result 159 k/mm3 (150-375); Red Blood Count 5.08 M/mm3 (4.6-6.20); Red Cell Distribution Width 12.6 % (11.5-14.5); White Blood Count 6.7 K/mm3 (4.5-10.0)
[2024-06-13 08:16] LABS: Alanine Aminotransferase 35 U/L (6-50); Albumin Level 4.6 g/dL (3.5-5.1); Alkaline Phosphatase 76 U/L (38-126); Anion Gap 10 mmol/L (4-12); Aspartate Amino Transferase 34 U/L (17-59); Bilirubin,Total 0.7 mg/dL (0.2-1.3); Blood Urea Nitrogen 15 mg/dL (9-20); CRP 0.7 mg/dL (<1.0); Calcium 9.7 mg/dL (8.4-10.2); Carbon Dioxide 27 mmol/L (22-30); Chloride 103 mmol/L (98-107); Estimated Glomerular Filt Rate > 60; Glucose 95 mg/dL (65-110); Potassium 4.2 mmol/L (3.4-5.0); Sodium 140 mmol/L (137-145)
== END 2024-06-13 06:53 | disposition home or self-care (01) ==
LOC: ANHLAB 06:55
PROVIDERS: PCP Nurse Practitioner Family; Visit Provider Physician Assistant
DX: M46.46 Discitis, unspecified, lumbar region (principal)
CPT/HCPCS: 36415; 80053; 85025; 86140

== ENCOUNTER 2024-07-15 06:52 | Outpatient (CLI) | payer BC, SELFPAY ==
--- OUTSIDE RECORDS SUMMARY | 2024-07-15 06:56 | XMS_ITS | Encounter Summary ---
Author Organization [facility] Healthcare Address [address] [place] [address] Care Team Providers Care Hydraulic Assembler Name Role Phone Lonnie Nazario MD Primary Care Provide r Audelia Roberts YARD CLEANER Primary Care Provider [phone] [phone] Encounter Details Date Type Department Care Team (Late st Contact Info) Description 09/16/2023 Orders Only [facility] Health Information Management [address] [place] [address] Scanning, Provider Social History Tobacco Use Types Packs/Day Years Used Date Smoking Tobacco: Former Cigarettes Q uit: 05/14/2012 Smokeless Tobacco: Never Comments:Vapes Alcohol Use Standard Drinks/Week Comments No 0 (1 standard drink = 0.6 oz pur e alcohol) Sex and Gender Information Value Date Recorded Sex Assigned at Not on file Legal Sex Male 8:12 AM PHOTOENGRAVING PRINTER Gender Identity Not on file Sexual Orientation Not on file documented as of this encounter Plan of Treatment Not on file documented as of this encounter Procedures Procedure Name Priority Date/Time Associated Diagnosis Comments SCAN - LABS 09/16/2023 documented in this encounter Results * SCAN - LABS (09/16/2023) us Provider Scanning Final Result documented in this encounter Visit Diagnoses Not on filedocumented in this encounter Care Teams Hydraulic Assembler Relationship Specialty Start Date End Date Lonnie Nazario MD [address] [place] [address] PCP - General Emergency Medicine 10/01/22 09/23/23 Audelia Robrets, MARISA [address] [place] [address] PCP - General Family Medicine 09/24/23 documented as of this encounter
--- OUTSIDE RECORDS SUMMARY | 2024-07-15 06:56 | XMS_ITS | Clinical Summary ---
Author Organization [facility] Address [address] [place] [address] Care Team Providers Care Elevator Constructor Helper Name Role Phone Audelia Roberts NP Primary Care Provider [phone] [phone] Allergies Active Allergy Reactions Criticality Noted Date Comments Hydrocodone Nausea & Vomiting,Nausea And Vomiting,Stomach upset Low 05/07/2015 Stomach/GI Upset Hydrocodone-Acetaminoph en Stomach upset High 12/06/2020 Other reaction(s): GI Upset Tramadol Nausea & Vomiting,Other (See comments),Nausea And Vomiting,Stomach upset High 04/09/2009 Reaction: Stomach/GI Upset Reaction: Medications Lactobacillus acidophilus (PROBIOTIC) 10 billion cell capsule take 1 by Oral route once 0 0 02/20/2016 Active aspirin (ASPIRIN LOW DOSE) 81 mg tablet take 1 tablet by oral route every day 0 0 02/20/2016 Active ascorbic acid (VITAMIN C) 1,000 mg tablet Take 1 tablet (1,000 mg total) by mouth daily Active omeprazole (PriLOSEC) 10 mg capsule Take 1 capsule (10 mg total) by mouth daily Active nitroglycerin (NITROSTAT) 0.[address] 1 tablet (0.4 mg total) under the tongue every 5 (five) minutes as needed for chest pain 25 tablet 3 06/04/2020 Active cholecalciferol (VITAMIN D-3) 35510 unit capsule Take 1 capsule (10,000 Units total) by mouth daily Active rosuvastatin (CRESTOR) 20 mg tablet TAKE 1 TABLET(20 MG) BY MOUTH DAILY 90 tablet 3 08/12/2023 Active ALPRAZolam (XANAX) 0.5 mg tablet Take by mouth 2 (two) times a day as needed 09/14/2023 Active metoprolol XL (TOPROL-XL) 25 mg extended release tablet TAKE 1 TABLET(25 MG) BY MOUTH DAILY 90 tablet 2 01/12/2024 Active clopidogreL (PLAVIX) 75 mg tabletIndication s:Coronary artery disease of [place] artery of [place] heart with stable angina pectoris TAKE 1 TABLET(75 MG) BY MOUTH DAILY 90 tablet 2 03/21/2024 Active Active Problems Problem Noted Date Diagnosed Date Encounter for medication management 09/24/2023 Pleuritic chest pain 03/27/2022 GALLARDO (dyspnea on exertion) 07/26/2020 Bilateral lower extremity edema 10/04/2019 Chronic sinusitis 11/21/2018 Facial pain, atypical 11/21/2018 Deviated nasal septum 11/21/2018 Anxiety 04/08/2018 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 02/11/2017 History of tobacco abuse 02/11/2017 Family history of coronary artery disease 2016 Pre-op evaluation 02/11/2017 Presence of stent in coronary artery 10/30/2016 Atypical chest pain 04/24/2016 Overview (07/18/2016): Chest pain, unspecified type Hematuria 04/24/2016 Overview (07/18/2016): Hematuria Chest pain on exertion 02/20/2016 Overview (07/18/2016): Exertional chest pain Claudication 02/20/2016 Overview (07/18/2016): Claudication Hyperlipidemia LDL goal <70 02/20/2016 Overview (07/18/2016): Hyperlipidemia LDL goal <70 Former smoker 02/20/2016 Overview (07/18/2016): Former smoker Atherosclerosis of coronary artery 08/27/2013 Overview (07/18/2016): Coronary artery disease Thoracic outlet syndrome 09/26/2010 Encounters Date Type Department Care Team Description 05/13/2024 3:15 PM SINGLE POINTED OPERATOR Office Visit [facility] Medical [facility] Cardiology [address] [place] [address] Dominic Loera MD Coronary artery disease of [place] artery of [place] heart with stable angina pectoris (Primary Dx); Hyperlipidemia LDL goal <70; Thoracic outlet syndrome; History of tobacco abuse; Bilateral lower extremity edema from Last 3 Months Surgical History Surgery Date Site/Laterality Comments OTHER SURGICAL HISTORY 04/13/2007 - 04/12/2008 thoracic Outlet OR 2007 & 2009 CARDIAC CATHETERIZATION Left NASAL TURBINATE REDUCTION HERNIA REPAIR THORACIC OUTLET SURGERY PORT PLACEMENT CHEST >5 YEARS 09/02/2023 N/A Medical History Medical History Date Comments Hx Other Medical Carbon monxide poisoning History of left heart catheterization Coronary artery disease Hyperlipidemia Chest pain Sinusitis Family History Medical History Relation Name Comments Heart attack Brother 1 Heart disease Brother 2 Heart attack Father Heart disease Father Leukemia Father Lymphoma Father Diabetes Mother Uterine cancer Mother Heart disease Sister Relation Name Status Comments Brother 1 (Age 53) Brother 2 Father Mother Sister Social History Tobacco Use Types Packs/Day Years Used Date Smoking Tobacco: Former Cigarettes Q uit: 05/14/2012 Smokeless Tobacco: Never Tobacco Cessation:Counseling Given: Not Answered Comments:Vapes Alcohol Use Standard Drinks/Week Comments No 0 (1 standard drink = 0.6 oz pur e alcohol) Sex and Gender Information Value Date Recorded Sex Assigned at Not on file Legal Sex Male 8:12 AM SINGLE POINTED OPERATOR Gender Identity Not on file Sexual Orientation Not on file Obstetrics History Last Filed Vital Signs Vital Sign Reading Time Taken Comments Blood Pressure 114/66 05/13/2024 3:08 PM SINGLE POINTED OPERATOR Pulse 72 05/13/2024 3:08 PM SINGLE POINTED OPERATOR Temperature 36.9 C (98.4 F) 09/04/2022 11:20 AM CDT Respiratory Rate 18 09/04/2022 11:2 0 AM CDT Oxygen Saturation 96% 05/13/2024 3:0 8 PM SINGLE POINTED OPERATOR Inhaled Oxygen Concentration - - Weight 115.2 kg (254 lb) 05/13/2024 3:0 8 PM SINGLE POINTED OPERATOR Wearing brace on left leg. Height 182.9 cm (6') 05/13/2024 3:08 PM SINGLE POINTED OPERATOR Body Mass Index 34.45 05/13/2024 3:08 PM SINGLE POINTED OPERATOR Plan of Treatment Health Maintenance Due Date Last Done Comments Colon Cancer Screening-Colonoscopy 1966 Depression Screening 1966 Hepatitis C Screening 1966 Prostate Cancer Screening-PSA 1966 DTaP/Tdap/Td Vaccine (1 - Tdap) 1977 Hepatitis B Screening 1984 Regular Well Visit/Exam 18-64 1984 Pneumococcal vaccine <65 (1 of 2 - PCV) 1985 Zoster Vaccine (1 of 2) 2016 Influenza Vaccine (#1) 2023 Insurance [employer] [place] [employer] ACCESS [facility] Care Teams Elevator Constructor Helper Relationship Specialty Start Date End Date Audelia Roberts NP PCP - General Family Medicine 09/24/23
--- OUTSIDE RECORDS SUMMARY | 2024-07-15 06:56 | XMS_ITS | Clinical Summary ---
Author Organization [facility] Address [address] [place] [address] Care Team Providers Care Insurance Assistant Name Role Phone AlejandraAudelia Timmy CLINICAL RESEARCHER Primary Care Provider [phone] Allergies Active Allergy Reactions Criticality Noted Date Comments Hydrocodone Nausea and Vomiting Low 12/06/2020 Hydrocodone-Acetaminophen GI Upset Low 12/06/2020 Tramadol Nausea and Vomiting,Other (see comment) Low 12/06/2020 Reaction: Medications Ascorbic Acid 1000 MG Tab Take 1,000 mg by mouth daily. Active aspirin EC (ASPIRIN EC) 81 MG tablet Take 81 mg by mouth daily. Active fish oil 1000 MG Cap capsule Take 1,000 mg by mouth 2 (two) times daily. Active Probiotic Product (PROBIOTIC ADVANCED) Cap Active rosuvastatin 10 MG tablet Take 1 tablet (10 mg total) by mouth nightly at bedtime. 90 tablet 1 1 Active CLOPIDOGREL 75 MG tablet TAKE 1 TABLET(75 MG) BY MOUTH DAILY 90 tablet 1 2 Active metoprolol succinate ER (TOPROL-XL) 25 MG 24 hr tablet Take 1 tablet (25 mg total) by mouth daily. Call and schedule an appt prior to next refill 30 tablet 2 Active oxyCODONE-acetamino phen (PERCOCET) 5-325 MG tabletIndications:A cute Pain < 3 Day Supply Take 1-2 tablets by mouth every 6 (six) hours as needed for Pain. Indications: Acute Pain < 3 Day Supply 10 tablet 2 Active ondansetron (ZOFRAN-ODT) 4 MG disintegrating tablet Take 1 tablet (4 mg total) by mouth every 6 (six) hours as needed for Nausea. 20 tablet 2 Active Active Problems Problem Noted Date Diagnosed Date Essential (primary) hypertension 12/06/2020 Assessment & Plan (12/06/2020 4:14 PM CDT): His blood pressure in the office today is elevated. I recommended that he continue to monitor his blood pressure at home. Continue metoprolol. Class 1 obesity due to exces s calories with serious comorbidity and body mass index (BMI) of 33.0 to 33.9 in adult 12/06/2020 Assessment & Plan (12/06/2020 4:16 PM CDT): I encouraged lifestyle modifications including diet and exercise. Coronary artery disease invo lving [place] coronary artery of [place] heart without angina pectoris 12/04/2020 Assessment & Plan (12/06/2020 4:13 PM CDT): He is currently not having angina. He had an ischemic evaluation earlier in the year with a cardiac catheterization that was unremarkable. Continue medical management of coronary artery disease with dual antiplatelet therapy, Aspirin, clopidogrel, rosuvastatin and metoprolol. Heart attack ([facility]) 05/29/2020 Hyperlipidemia Assessment & Plan (12/06/2020 4:15 PM CDT): His lipids last year were relatively well controlled. His triglycerides were 195 and the previous triglycerides were 343. I encouraged lifestyle modifications including diet and exercise. Family History Medical History Relation Comments Heart Attack Brother 1 Heart Disease Brother 1 cabg x2 Brother 2 Diabetes Father Heart Attack Father leukemia Father lymphoma Father Diabetes Mother Uterine Cancer Mother Heart Disease Sister 1 cabg x 3 Sister 1 Relation Status Comments Brother 1 (Age 53) Brother 2 Alive Father (Age 81) Mother (Age 86) Sister 1 Alive Sister 2 Alive Social History Tobacco Use Types Packs/Day Years Used Date Smoking Tobacco: Former Cigarettes Q uit: 05/2012 Smokeless Tobacco: Never Alcohol Use Standard Drinks/Week Comments Not Currently 0 (1 standard drink = 0.6 oz pur e alcohol) Sex and Gender Information Value Date Recorded Sex Assigned at Not on file Legal Sex Male 3:59 PM CDT Gender Identity Not on file Sexual Orientation Not on file 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 Not on file Not on file Last Filed Vital Signs Vital Sign Reading Time Taken Comments Blood Pressure 128/67 01/24/2022 12:25 PM CDT Pulse 71 01/24/2022 11:28 AM CDT Temperature 36.8 C (98.2 F) 01/24/2022 11:28 AM CDT Respiratory Rate 18 01/24/2022 11:28 AM CDT Oxygen Saturation 97% 01/24/2022 12:25 PM CDT Inhaled Oxygen Concentration - - Weight 107 kg (236 lb) 01/24/2022 11:28 AM CDT Height 182.9 cm (6') 01/24/2022 11:28 AM CDT Body Mass Index 32.01 01/24/2022 11:28 AM CDT Plan of Treatment Health Maintenance Due Date Last Done Comments ASCVD LDL 1966 ASCVD Statin 1966 Colorectal Cancer Screening Colonoscopy (10 Years) 1966 Annual Physical 1969 Pneumococcal Vaccine: Pediat rics (0 to 5 Years) and At-Risk Patients (6 to 64 Years) (1 of 2 - PCV) 1972 Hepatitis C 1984 DTaP, Tdap and Td Vaccines ( 1 - Tdap) 1985 Hepatitis B Vaccines (1 of 3 - 19+ 3-dose series) 1985 Zoster Vaccines (1 of 2) 2016 COVID-19 Vaccine ( - 2023-2 5 season) 2023 Meningococcal B Vaccine Aged Out No l onger eligible based on patient's age to complete this topic Meningococcal Vaccine Aged Out No kendall sarika eligible based on patient's age to complete this topic RSV Immunizations Under 20 Months Aged Out No longer eligible based on patient's age to complete this topic Insurance [employer] Care Teams Insurance Assistant Relationship Specialty Start Date End Date Audelia Roberts, MARISA [address] [place] [address] PCP - General Nurse Practitioner Family 12/15/23
--- OUTSIDE RECORDS SUMMARY | 2024-07-15 06:56 | XMS_ITS | Encounter Summary ---
Author Organization [facility] Address [address] [facility] [place] [address] Care Team Providers Care Biomass Plant Manager Name Role Phone None, Physician Primary Care Provider Audelia Portillo PREANALYTICS TEAM LEAD-AIRDROP SYSTEMS TECHNICIAN Primary Care Provid er Debby OrellanaC Unavailable [phone] Encounter Details Date Type Department Care Team (Late st Contact Info) Description 08/13/2023 Telephone [facility] - Infectious Disease [address] [place] [address], [place] [id number] Christiano Altamirano MD [address] [place] [address] OF INFECTI[place] [address] Social History Tobacco Use Types Packs/Day Years Used Date Smoking Tobacco: Never Smokeless Tobacco: Never PHQ-2 Answer Date Recorded Patient Health Questionnaire-2 Score 0 08/11/2023 Sex and Gender Information Value Date Recorded Sex Assigned at Not on file Gender Identity Not on file Sexual Orientation Not on file documented as of this encounter Miscellaneous Notes * Telephone Encounter - Adeola Charles - 08/13/2023 8:48 AM CDT Current Provider: Dr. Altamirano/Staff Reason for Call: Mr. Michael Floyd has surgery scheduled for August 31, 2023 and would like a sooner appt since his infection is possibly spreading. His referral is in for M46.46 (ICD-10-CM) - Discitis of lumbar region. Please advise and schedule. Thanks. Patient Call Back Number: [phone] documented in this encounter Plan of Treatment Upcoming Encounters Date Type Department Care Team (Late st Contact Info) Description 09/13/2024 10:15 AM CDT Office Visit [facility] - Orthopedics [address] [place] [address], [place] [phone] Brenden Bills MD [address] [place] [address] documented as of this encounter Visit Diagnoses Not on filedocumented in this encounter Care Teams Biomass Plant Manager Relationship Specialty Start Date End Date None, Physician PCP - General 06/24/23 08/18/23 Audelia Roberts, PREANALYTICS TEAM LEAD-AIRDROP SYSTEMS TECHNICIAN [address] [place] [address] PCP - General Nurse Practitioner 08/19/23 Debby Orellana PAClarenceC [address] [place] [address] Physician Principal Architectural Firm Infectious Disease 09/22/23 documented as of this encounter
--- OUTSIDE RECORDS SUMMARY | 2024-07-15 06:56 | XMS_ITS | Referral Summary ---
Author Organization [facility] Address [address] [place] [address] Care Team Providers Care Art Glass Setter Name Role Phone Audelia Roberts NP Primary Care Provider [phone] Encounters Date Type Department Care Team Description 05/13/2024 3:15 PM COUPON AND BOND COLLECTION CLERK Office Visit [facility] Medical Group Cardiology [address] [place] [address] Dominic Loera MD Coronary artery disease of [place] artery of [place] heart with stable angina pectoris (Primary Dx); Hyperlipidemia LDL goal <70; Thoracic outlet syndrome; History of tobacco abuse; Bilateral lower extremity edema from Last 3 Months Allergies Active Allergy Reactions Criticality Noted Date [...] tablet 3 06/04/2020 Active cholecalciferol (VITAMIN D-3) 37273 unit capsule Take 1 capsule (10,000 Units [...] 75 mg tabletIndication s:Coronary artery disease of [place] artery of [place] heart with stable angina pectoris TAKE 1 [...] artery disease of n ative artery of [place] heart with stable angina pectoris 02/11/2017 History [...] Coronary artery disease Thoracic outlet syndrome 09/26/2010 Social History Tobacco Use Types Packs/Day Years Used Date Smoking Tobacco: Former Cigarettes Q uit: 05/14/2012 Smokeless Tobacco: Never Tobacco Cessation:Counseling Given: Not Answered Comments:Vapes Alcohol Use Standard Drinks/Week Comments No 0 (1 standard drink = 0.6 oz pur e alcohol) Sex and Gender Information Value Date Recorded Sex Assigned at Not on file Legal Sex Male 8:12 AM COUPON AND BOND COLLECTION CLERK Gender Identity Not on file Sexual Orientation Not on file Last Filed Vital Signs Vital Sign Reading Time Taken Comments Blood Pressure 114/66 05/13/2024 3:08 PM COUPON AND BOND COLLECTION CLERK Pulse 72 05/13/2024 3:08 PM COUPON AND BOND COLLECTION CLERK Temperature 36.9 C (98.4 F) 09/04/2022 11:20 AM CDT Respiratory Rate 18 09/04/2022 11:2 0 AM CDT Oxygen Saturation 96% 05/13/2024 3:0 8 PM COUPON AND BOND COLLECTION CLERK Inhaled Oxygen Concentration - - Weight 115.2 kg (254 lb) 05/13/2024 3:0 8 PM COUPON AND BOND COLLECTION CLERK Wearing brace on left leg. Height 182.9 cm (6') 05/13/2024 3:08 PM COUPON AND BOND COLLECTION CLERK Body Mass Index 34.45 05/13/2024 3:08 PM COUPON AND BOND COLLECTION CLERK Plan of Treatment [place] [id number] [facility] [email or web address] OPEN ACCESS [employer] [place] Care Teams Art Glass Setter Relationship Specialty Start Date End Date Audelia Roberts NP PCP - General Family Medicine 09/24/23
--- OUTSIDE RECORDS SUMMARY | 2024-07-15 06:56 | XMS_ITS ---
Author Organization [facility] Address [address] [place] [address] Phone Care Team Providers Care Inspector Penetrant Name Role Phone Unavailable Unavailable Unavailable Problems Includes: Active, inactive, and resolved Problems All Visits Onset Date Resolved Date Provider Condition S tatus Dorsopathy Low Back Pain Other 05/14/2023 URSULA JADE DO Active Last Documented On 4 9:21AM ; [facility] Plan of Treatment Findings Encounter Date I discussed with Michael that h is current lab values, as obtained by his infectious disease doctor weekly, are normal. He was doing well until about two days ago. His most recent CT/MRI does show that the area of infection he has been battling is getting smaller At this point I do believe he would benefit from some formal physical therapy. I do not believe that rushing into another surgical procedure would be beneficial. He is describing his pain as in the opal muscles. He has tired Biofreeze in this area without much benefit. He is going to try some Lidocaine patches at this point. He does need to do exercises he is taught at therapy at home as well in order to stretch his back out and build up the muscles in the area where he has been guarding due to his pain. Fortunately, this pain is not radicular at this point but more muscular. He does state that in approximately 9 to 10 weeks I&D is going to obtain a repeat MRI to look at the area where his infection has been centered. We did talk about obtaining new labs today. However, his I&D doctor has just changed his antibiotic and any results would not be accurate. His I&D doctor will redraw labs on Thursday FOLLOW UP with URSULA JADE DO 06/08/2023 Last Documented On 4 9:44AM ; [facility] Ordered home exercises FOLLOW UP with URSULA SALAZAR DO 06/08/2023 Last Documented On 4 9:44AM ; [facility] Ordered physical therapy FOLLOW UP with URSULA JADE DO 06/08/2023 Last Documented On 4 9:44AM ; [facility] I discussed with Michael that I want him to keep this incision covered for the next few days. I have advised him to stay reclined as much as he can over the next few days, at least until Thursday. He can continue the use of Tylenol for pain control He can resume his normal dose of Gabapentin for now. He can change this dressing every day ORTHO NEW PATIENT with URSULA JADE DO 05/14/2023 Last Documented On 4 9:21AM ; [facility] Instructions to patient Reduced physical activity Last Documented On 4 9:16AM ; [facility] Reduced physical activity Last Documented On 4 9:19AM ; [facility] Watch for signs/symptoms of infection Last Documented On 4 9:19AM ; [facility] Education and Decision Aids were provided during visit for: Patient education about orth opedic activities Last Documented On 4 9:16AM ; [facility] Patient education about orth opedic activities Last Documented On 4 9:19AM ; [facility] Assessments Includes: Assessments for all patient encounters Findings Encounter Date Assessment of lower back pain FOLLOW UP with TAM JADE DO 06/08/2023 Last Documented On 4 9:44AM ; [facility] Instructions Includes: Instructions for all patient encounters Instructions to patient Reduced physical activity Last Documented On 4 9:16AM ; [facility] Reduced physical activity Last Documented On 4 9:19AM ; [facility] Watch for signs/symptoms of infection Last Documented On 4 9:19AM ; [facility] Education and Decision Aids were provided during visit for: Patient education about orth opedic activities Last Documented On 4 9:16AM ; [facility] Patient education about orth opedic activities Last Documented On 4 9:19AM ; [facility] Medical Equipment - Implanted Devices Includes: Current and historical Devices No Medical Equipment Recorded Medications Includes: Current and historical Medications Current Medications (continue as prescribed) Ondansetron HCl 4 MG Oral Tablet 08/01/2023 Provider : URSULA JADE DO Diagnosis: Other low back p ain 1 every 6 hours as needed Last Documented On 08/01/2023 12:04PM By Ursula Jade DO ; [facility] oxyCODONE-Acetaminophen 5-32 5 MG Oral Tablet 08/01/2023 Provider: URSULA JADE DO Diagnosis: Discitis, unspec ified, lumbosacral region 1 every 6 hours as needed Last Documented On 08/01/2023 11:49AM By Ursula Jade DO ; [facility] traMADol HCl 50 MG Oral Tablet 06/27/2023 Provider: URSULA JADE DO Diagnosis: Discitis, unspec ified, lumbar region Take one four times a day as needed Last Documented On 06/27/2023 8:49PM By Ursula Jade DO ; [facility] Daily Probiotic Oral Capsule 05/14/2023 Provider: Diagnosis: Last Documented On 05/14/2023 9:06AM By FREDIS ROSENTHAL LPN ; [facility] Vitamin C 1000 MG Oral Tablet 05/14/2023 Provider: Diagnosis: 2000mg daily Last Documented On 05/14/2023 9:10AM By FREDIS ROSENTHAL LPN ; [facility] SB Low Dose ASA EC 81 MG Oral Tablet Delayed Release 0 05/14/2023 Provider: Diagnosis: Last Documented On 05/14/2023 9:06AM By FREDIS ROSENTHAL LPN ; [facility] ALPRAZolam 0.5 MG Oral Tablet 05/14/2023 Provider: Diagnosis: Last Documented On 05/14/2023 9:05AM By FREDIS ROSENTHAL LPN ; [facility] Metoprolol Succinate ER 25 M G Oral Tablet Extended Release 24 Hour 05/14/2023 Provider: Diagnosis: Last Documented On 05/14/2023 9:04AM By FREDIS ROSENTHAL LPN ; [facility] Rosuvastatin Calcium 20 MG Oral Tablet 05/14/2023 Pr ovider: Diagnosis: Last Documented On 05/14/2023 9:04AM By FREDIS ROSENTHAL LPN ; [facility] Clopidogrel Bisulfate 75 MG Oral Tablet 05/14/2023 P rovider: Diagnosis: Last Documented On 05/14/2023 9:04AM By FREDIS ROSENTHAL LPN ; [facility] Past Medications on file oxyCODONE-Acetaminophen 5-32 5 MG Oral Tablet 06/27/2023 - 05/25/2023 Provider: URSULA JADE DO Diagnosis: Discitis, unspecified, lumbosacral region 1 every 6 hours as needed Last Documented On 08/01/2023 11:46AM By Ursula Jade DO ; [facility] traMADol HCl 50 MG Oral Tablet 06/27/2023 - 06/08/2023 Provider: URSULA JADE DO Diagnosis: Discitis, unspec ified, lumbar region Take one four times a day as needed Last Documented On 06/27/2023 8:34PM By Ursula Jade DO ; [facility] oxyCODONE-Acetaminophen 5-32 5 MG Oral Tablet 06/27/2023 - 06/08/2023 Provider: URSULA JADE DO Diagnosis: Discitis, unspecified, lumbosacral region 1 every 6 hours as needed Last Documented On 06/27/2023 8:30PM By Ursula Jade DO ; [facility] oxyCODONE-Acetaminophen 5-32 5 MG Oral Tablet 06/04/2023 - 06/08/2023 Provider: URSULA JADE DO Diagnosis: Discitis, unspecified, lumbosacral region 1 every 6 hours as needed Last Documented On 06/27/2023 6:19PM By Ursula Jade DO ; [facility] GN Vitamin C 1000 MG Oral Tablet 05/14/2023 - 024 Provider: Diagnosis: 1000 mg daily Last Documented On 05/14/2023 9:09AM By FREDIS ROSENTHAL LPN ; [facility] Medications Administered Includes: Administered Medications in patient's chart No Administered Medications Recorded Results Includes: Results from 07/16/2023 through 07/15/2024 No Results Recorded For Specified Dates History of Present Illness History of Present Illness not supported for this document type No History of Present Illness Recorded Social History Description Last Updated Not a current smoker 06/08/2023 Last Documented On 4 9:44AM ; [facility] Not using drugs 06/08/2023 Last Documented On 4 9:44AM ; [facility] Tobacco non-user 05/14/2023 Last Documented On 4 9:21AM ; [facility] Smoking Status Unknown Medical History Includes: Medical History in patient's chart Description Last Updated Provides moderate relief 06/08/2023 Last Documented On 4 9:44AM ; [facility] History of essential hypertension 2023 Last Documented On 4 9:44AM ; [facility] History of systemic hypertension 024 Last Documented On 4 9:44AM ; [facility] Provides excellent relief 05/14/2023 Last Documented On 4 9:21AM ; [facility] Prior surgery 05/14/2023 Last Documented On 4 9:21AM ; [facility] Family History Includes: Family History in patient's chart No Family History Recorded Review of Systems Review of Systems not supported for this document type No Review of Systems Recorded Mental Status Description Oriented to time, place, and person Functional Status No Functional Status Recorded Physical Exam Physical Exam not supported for this document type No Physical Exam Recorded Allergies Includes: Active, inactive, and resolved Allergies Substance Type Reaction Onset Date Resolved Date Statu s Vicodin Allergy 05/14/2023 Active Last Documented On 4 9:12AM ; [facility] traMADol HCl Allergy 05/14/2023 Active Last Documented On 4 9:12AM ; [facility] Insurance Includes: Active Insurance Policies Plan Name Member ID Group # Subscriber Relationship Effect zheng Dates 1 - [facility] [id number] MICHAEL Amaya Clinical Notes Includes: Signed Clinical Notes starting from 05/02/2022 No Clinical Notes Recorded
--- OUTSIDE RECORDS SUMMARY | 2024-07-15 06:57 | XMS_ITS | Encounter Summary ---
Author Organization [facility] Address [address] [place] [address] Care Team Providers Care Ear Specialist Name Role Phone Lonnie Nazario MD Primary Care Provider + [phone] Encounter Details Date Type Department Care Team (Late st Contact Info) Description 04/22/2006 Orders Only [facility] Internal Medicine Medical [facility] [address] [address] Arlin Quarles MD [address] [place] [address] [address] [place] [id number] Social History Tobacco Use Types Packs/Day Years Used Date Smoking Tobacco: Never Assessed Sex and Gender Information Value Date Recorded Sex Assigned at Not on file Legal Sex Male 3: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 MEDICATIONS: Medication list current. CHIEF COMPLAINT Patient here for ER follow up.L side pain,chest,neck down arm HISTORY: Pain started suddenly a few weeks ago in left chest, left back and into left arm. It is intense and has been to ER a few times. Tests have been negative. There is some component of numbness at times. No exacerbating or relieving factors although he thinks holding left arm above head helps at times.Feels as though the muscles are spasming. Has never had such pain before. It is not painfulto light touch. No known trauma to area. Was taking percocet from ED but this makes him loopy and he prefers not to take it. Work up thus far has included negative MRI of c spine. Negative stress test. CT chest did show 2 cmright hilar node which needs f/u but not thought to be related to pain. CURRENT PROBLEM LIST: CURRENT MEDICATION LIST: PERCOCET ORAL TABLET 5-325 MG, 1 every 6-8 hours VALIUM ORAL TABLET 10 MG, 1every 6-8 hours CURRENT ALLERGY LIST: VICODIN ROS: new patient history form reviewed 04/22/06 PAST MEDICAL HISTORY: new patient history form reviewed 04/22/06 FAMILY HISTORY: new patient history form reviewed 04/22/06 SOCIAL HISTORY: new patient history form reviewed 04/22/06 TOBACCO USE: Currently smokes. PHYSICAL EXAMINATION: CONSTITUTIONAL: GENERAL APPEARANCE: Healthy appearing patient in no distress. NECK/THYROID: Trachea midline. No thyroid enlargement, tenderness, or mass. No supraclavicular or cervical adenopathy. RESPIRATORY: Clear to auscultation and percussion. Normal respiratory effort. CARDIOVASCULAR: CARDIAC: Regular rhythm. No murmurs, rubs, or gallops. ARTERIAL: No aortic bruits. EDEMA/VARICOSITIES OF EXTREMITIES: No edema or varicosities. GASTROINTESTINAL: ABDOMEN: Soft, non-tender, without masses. Bowel sounds active. LIVER/SPLEEN/KIDNEY: No hepatosplenomegaly, tenderness or nodularity. Kidneys not palpable. MUSCULOSKELETAL EXAM: SPINE/RIBS/PELVIS: No spinous processes tenderness, LEFT UPPER PARASPINAL MUSCLE TENDERNESS, LEFT MIDDLE PARASPINAL MUSCLE TENDERNESS. EXTREMITIES: LEFT UPPER: No biceps tendon tenderness, no subacromium bursa tenderness, no shoulder swelling, BICEPS MUSCLE TENDERNESS NOTED, TRICEPS MUSCLE TENDERNESS NOTED, elbow joint normal to inspection and palpation, full range of motion in the shoulder, full range of motion in the elbow, normal strength and tone in deltoid, normal strength and tone in triceps, normal strength and tone in biceps. NEUROLOGIC: DEEP TENDON REFLEXES: Biceps reflexes 2+/4+ and symmetrical, Triceps reflexes 2+/4+ and symmetrical. PSYCHIATRIC: MILDLY DEPRESSED AFFECT. ASSESSMENT/PLAN: 729.5-PAIN LIMB (LEG OR ARM) Definite muscle tightness of unknown etiology. ? some neuropathic component- will get NCS and try gabapentin MEDICATIONS: GABAPENTIN ORAL TABLET 300 MG, 1 po x 1 today then 1 po bid x 1 day then 1 po tid, 90 Dispensed, 3 Fills, status: NEW PRESCRIPTION, 04/22/2006. CYCLOBENZAPRINE HCL ORAL TABLET 10 MG, 1/2-1 Three Times A Day, As Needed, 60 Dispensed, status: NEW PRESCRIPTION, 04/22/2006. LAB ORDERS: Order number: [id number] Test Ordered: XRAY HUMERUS LEFT Order number: [id number] Test Ordered: XRAY SHOULDER LEFT Order number: [id number] Test Ordered: NCV/EMG UPPER EXTREMITY LEFT 793.1-ABNORMAL CHEST X-RAY would get f/u CT scan in about 3 months. HEALTH MAINTENANCE: LAST PROSTATE EXAM: 97.8. LAST PROSTATE EXAM: 12/2004. DISCUSSED SMOKIN. ( 1 1 1/2 daily) SEXUAL ACTIVITY DISCUSSED: yes/. LAST DATE COLONOSCOPY: 12/2004. RETURN VISIT : Patient instructed to return in a few weeks if not improving. Electronically Signed by: Arlin Quarles MD on Friday, April 28, 2006 documented in this encounter Plan of Treatment Not on file documented as of this encounter Visit Diagnoses Not on filedocumented in this encounter Care Teams Ear Specialist Relationship Specialty Start Date End Date Lonnie Nazario MD [address] [place] [id number] PCP - General Internal Medicine 04/01/23 documented as of this encounter
--- OUTSIDE RECORDS SUMMARY | 2024-07-15 06:57 | XMS_ITS | Encounter Summary ---
Author Organization [facility] Address [address] [place] [address] Care Team Providers Care Spa Supervisor Name Role Phone Lonnie Nazario MD Primary Care Provider + [phone] Encounter Details Date Type Department Care Team (Late st Contact Info) Description 04/10/2006 Outpatient Historical [facility] ([facility]) [address] 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
--- OUTSIDE RECORDS SUMMARY | 2024-07-15 06:57 | XMS_ITS | Encounter Summary ---
Author Organization [facility] Address [address] [place] [address] Care Team Providers Care Tailor Men'S Ready To Wear Name Role Phone Lonnie Nazario MD Primary Care Provide r Audelia Roberts BEEF CATTLE FARMER Primary Care Provider [phone] Encounter Details Date Type Department Care Team (Late st Contact Info) Description 08/03/2023 Orders Only [facility] [address] [place] [address] Scanning, Provider Social History Tobacco Use Types Packs/Day Years Used Date Smoking Tobacco: Former Cigarettes Q uit: 05/14/2012 Smokeless Tobacco: Never Comments:Vapes Alcohol Use Standard Drinks/Week Comments No 0 (1 standard drink = 0.6 oz pur e alcohol) Sex and Gender Information Value Date Recorded Sex Assigned at Not on file Legal Sex Male 8:12 AM 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 Gender Identity Not on file Sexual Orientation Not on file documented as of this encounter Plan of Treatment Not on file documented as of this encounter Procedures Procedure Name Priority Date/Time Associated Diagnosis Comments SCAN - LABS 08/03/2023 documented in this encounter Results * SCAN - LABS (08/03/2023) us Provider Scanning Final Result documented in this encounter Visit Diagnoses Not on filedocumented in this encounter Care Teams Tailor Men'S Ready To Wear Relationship Specialty Start Date End Date Lonnie Nazario MD [address] [place] [address] PCP - General Emergency Medicine 10/01/22 09/23/23 Audelia Roberts, MARISA [address] [place] [address] PCP - General Family Medicine 09/24/23 documented as of this encounter
--- OUTSIDE RECORDS SUMMARY | 2024-07-15 06:57 | XMS_ITS | Encounter Summary ---
Author Organization [facility] Address [address] [place] [address] Care Team Providers Care Certified Pediatric Nurse Practitioner Name Role Phone Lonnie Nazario MD Primary Care Provider + [phone] Encounter Details Date Type Department Care Team (Late st Contact Info) Description 04/14/2006 Outpatient Historical [facility] Leeroy Noel MD [facility] [place], [place] [id number] Er, Authorized P NO ADDRESS ON FILE Unspecified Chest Pain (Primary Dx) Social History Tobacco Use Types Packs/Day Years Used Date Smoking Tobacco: Never Assessed Sex and Gender Information Value Date Recorded Sex Assigned at Not on file Legal Sex Male 3:32 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 Gender Identity Not on file Sexual Orientation Not on file documented as of this encounter Plan of Treatment Not on file documented as of this encounter Procedures Procedure Name Priority Date/Time Associated Diagnosis Comments TROPONIN (W/REFLEX CKMB/CK) Routine 04/14/2006 5:56 PM CLINICAL ENGINEERING DIRECTOR CBC WITH DIFFERENTIAL Routine 04/14/2006 5:56 PM CLINICAL ENGINEERING DIRECTOR CBC WITH DIFFERENTIAL Routine 04/14/2006 5:56 PM CLINICAL ENGINEERING DIRECTOR COMPREHENSIVE METABOLIC PANEL Routine 04/14/2006 5:56 PM CLINICAL ENGINEERING DIRECTOR documented in this encounter Results * TROPONIN (W/REFLEX CKMB/CK) (04/14/2006 5:56 PM CLINICAL ENGINEERING DIRECTOR) TROPONIN T 0.01 <=0.03 ng/mL INTERFACE SYSTEM TROPONIN T INTERP Negative INTERFACE SYSTEM 04/14/2006 5:56 PM CLINICAL ENGINEERING DIRECTOR Leeroy Noel MD CHEMISTRY ORDERABLES Edited Performing Organization Address [facility] de Phone Number INTERFACE SYSTEM Refer to clinic/hospital department * CBC WITH DIFFERENTIAL (04/14/2006 5:56 PM CLINICAL ENGINEERING DIRECTOR) NEUTROPHILS 60 45 - 70 % INTERFAC E SYSTEM LYMPHOCYTES 31 16 - 45 % INTERFAC E SYSTEM MONOCYTES 8 3 - 13 % INTERFACE SYSTEM EOSINOPHILS 1 0 - 7 % INTERFAC E SYSTEM BASOPHILS 1 0 - 2 % INTERFACE SYSTEM NEUTROPHIL ABSOLUTE 3.43 1.90 - 7.00 K/uL INTERFACE SYSTEM LYMPHOCYTE ABSOLUTE 1.75 0.70 - 4.50 K/uL INTERFACE SYSTEM MONOCYTE ABSOLUTE 0.48 0.10 - 1.30 K/uL INTERFACE SYSTEM EOSINOPHIL ABSOLUTE 0.04 0.00 - 0.70 K/uL INTERFACE SYSTEM BASOPHILS ABSOLUTE 0.04 0.00 - 0.20 K/uL INTERFACE SYSTEM 04/14/2006 5:56 PM CLINICAL ENGINEERING DIRECTOR Leeroy Noel MD HEMATOLOGY ORDERABLES Edited Performing Organization Address [facility] Phone Number INTERFACE SYSTEM Refer to clinic/hospital department * (ABNORMAL) CBC WITH DIFFERENTIAL (04/14/2006 5:56 PM CLINICAL ENGINEERING DIRECTOR) WBC 5.7 4.0 - 9.8 K/uL INTERFACE SYSTEM RBC 5.31 4.50 - 5.40 M/uL INTERFACE SYSTEM HEMOGLOBIN 17.2(H) 13.6 - 16.5 g/dL INTERFACE SYSTEM HEMATOCRIT 47.3 40.0 - 48.0 % INTERFACE SYSTEM MCV 89.1 82.0 - 99.0 fL INTERFACE SYSTEM MCH 32.4 27.2 - 32.6 pg INTERFACE SYSTEM MCHC 36.4(H) 31.5 - 35.5 % INTERFACE SYSTEM RDW 12.3 11.5 - 14.5 % INTERFACE SYSTEM RDW-STDEV 39.4 37.1 - 48.7 fL INTERFACE SYSTEM PLATELETS 191 140 - 350 K/uL INTERFACE SYSTEM MPV 10.5 9.3 - 12.4 fL INTERFACE SYSTEM 04/14/2006 5:56 PM CLINICAL ENGINEERING DIRECTOR us Leeroy Noel MD HEMATOLOGY ORDERABLES Edited Performing Organization Address [facility] Co de Phone Number INTERFACE SYSTEM Refer to clinic/hospital department * COMPREHENSIVE METABOLIC PANEL (04/14/2006 5:56 PM CLINICAL ENGINEERING DIRECTOR) GLUCOSE 83 65 - 99 mg/dL INTERFACE SYSTEM CREATININE 0.92 0.67 - 1.17 mg/dL INTERFACE SYSTEM CALCIUM 9.0 8.4 - 10.2 mg/dL INTERFACE SYSTEM ALKALINE PHOSPHATASE 85 40 - 129 U/L INTERFACE SYSTEM AST 27 12 - 38 U/L INTERFACE SYSTEM Comment:Hemolyzed: Result ma y be falsely elevated. ALT 22 0 - 41 U/L INTERFACE SYSTEM TOTAL PROTEIN 7.3 6.3 - 8.6 g/dL INTERFACE SYSTEM ALBUMIN 4.5 3.4 - 4.8 g/dL INTERFACE SYSTEM BILIRUBIN TOTAL 0.3 0.2 - 1.0 mg/dL INTERFACE SYSTEM BUN 15 6 - 20 mg/dL INTERFACE SYSTEM SODIUM 142 135 - 145 mmol/L INTERFACE SYSTEM POTASSIUM 4.2 3.5 - 4.9 mmol/L INTERFACE SYSTEM Comment: Moderate hemolysis present. Can cause significant falsely elevated result. Clinical judgement necessary. Redraw if indicated. CHLORIDE 105 96 - 108 mmol/L INTERFACE SYSTEM CO2 28 22 - 30 mmol/L INTERFACE SYSTEM GFR, >60 >=60 mL/min/1.7 sq meter INTERFACE SYSTEM GFR >60 >=60 mL/min/1.7 sq meter INTERFACE SYSTEM Comment: Estimated GFR rate interpretative information for both Americans and non- Americans is available on the [facility] Intranet at: [email or web address] Select: Lab Policies and Procedures Select: Reference Ranges - GFR 04/14/2006 5:56 PM CLINICAL ENGINEERING DIRECTOR us Leeroy Noel MD CHEMISTRY ORDERABLES Edited Performing Organization Address [facility] Co de Phone Number INTERFACE SYSTEM Refer to clinic/hospital department documented in this encounter Visit Diagnoses Diagnosis Chest pain, unspecified- Primary documented in this encounter Care Teams Certified Pediatric Nurse Practitioner Relationship Specialty Start Date End Date Lonnie Nazario MD [address] [facility] [address] [place] [address] PCP - General Internal Medicine 04/01/23 documented as of this encounter
--- OUTSIDE RECORDS SUMMARY | 2024-07-15 06:57 | XMS_ITS | Encounter Summary ---
Author Organization [employer] Address [address] [place] [address] Care Team Providers Care Cross Country Truck Driver Name Role Phone Lonnie Nazario MD Primary Care Provider + [phone] Encounter Details Date Type Department Care Team (Late st Contact Info) Description 04/17/2006 Outpatient Historical [facility] EMERGENCY ROOM Tate De La Rosa Jr., MD [facility] [place] [id number] Er, Authorized P NO ADDRESS ON FILE Other Chronic Pain (Primary Dx) Social History Tobacco Use Types Packs/Day Years Used Date Smoking Tobacco: Never Assessed Sex and Gender Information Value Date Recorded Sex Assigned at Not on file Legal Sex Male 3:32 AM 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 Gender Identity Not on file Sexual Orientation Not on file documented as of this encounter Plan of Treatment Not on file documented as of this encounter Procedures Procedure Name Priority Date/Time Associated Diagnosis Comments TROPONIN (W/REFLEX CKMB/CK) Routine 04/17/2006 4:12 PM DOG RACES MANAGER ED HOLD Routine 04/17/2006 4:11 PM DOG RACES MANAGER documented in this encounter Results * TROPONIN (W/REFLEX CKMB/CK) (04/17/2006 4:12 PM DOG RACES MANAGER) TROPONIN T <0.01 <=0.03 ng/mL INTERFACE SYSTEM TROPONIN T INTERP Negative INTERFACE SYSTEM 04/17/2006 4:12 PM DOG RACES MANAGER us Tate Ornelas Jr., MD CHEMISTRY ORDERABLES Edite d Performing Organization Address City/[facility] Co de Phone Number INTERFACE SYSTEM Refer to clinic/hospital department * ED HOLD (04/17/2006 4:11 PM DOG RACES MANAGER) SPECIMEN HOLD, BLOOD 7 days INTERFACE SYSTEM 04/17/2006 4:11 PM DOG RACES MANAGER us Tate Ornelas Jr., MD CHEMISTRY ORDERABLES Edite d Performing Organization Address [facility] de Phone Number INTERFACE SYSTEM Refer to clinic/hospital department documented in this encounter Visit Diagnoses Diagnosis Other chronic pain- Primary documented in this encounter Care Teams Cross Country Truck Driver Relationship Specialty Start Date End Date Lonnie Nazario MD [address] [place] [phone] PCP - General Internal Medicine 04/01/23 documented as of this encounter
--- OUTSIDE RECORDS SUMMARY | 2024-07-15 06:57 | XMS_ITS | Encounter Summary ---
Author Organization [facility] Care Team Providers Care Marketing Business Analyst Name Role Phone Brian Benedict MD Primary Care Provide r Dre Payton MD Primary Care Provider [phone] Lonnie Nazario MD Primary Care Provide r Audelia Robrets NP Primary Care Provider [phone] Encounter Details Date Type Department Care Team (Latest Contact Info) Description 10/10/2016 Orders Only [facility] CLINCON[facility] ProviderOlvin MD [address] [place] [address] Social History Tobacco Use Types Packs/Day Years Used Date Smoking Tobacco: Every Day Comments:Smoking History Pac ks/day: 10 Packs Alcohol Use Standard Drinks/Week Comments No 0 (1 standard drink = 0.6 oz pur e alcohol) Sex and Gender Information Value Date Recorded Sex Assigned at Not on file Legal Sex Male 8:12 AM ACCESS RN Gender Identity Not on file Sexual Orientation Not on file documented as of this encounter Plan of Treatment Not on file documented as of this encounter Procedures Procedure Name Priority Date/Time Associated Diagnosis Comments SCAN - LABS 10/15/2016 12:00 AM CDT SCAN - LABS 10/15/2016 12:00 AM CDT documented in this encounter Results * SCAN - LABS (10/15/2016 12:00 AM CDT) Narrative 10/15/2016 12:00 AM CDT Ordered by an unspecified provider. us Historical Provider Final Res ult * SCAN - LABS (10/15/2016 12:00 AM CDT) Narrative 10/15/2016 12:00 AM CDT Ordered by an unspecified provider. us Historical Provider Final Res ult documented in this encounter Visit Diagnoses Not on filedocumented in this encounter Additional Health Concerns Infection Onset Date Last Indicated Resolved Time COVID: Suspected 05/15/2022 05/15/2022 05/15/2022 11:49 AM ACCESS RN COVID: Suspected 05/15/2022 05/15/2022 05/15/2022 8:54 PM ACCESS RN COVID: Suspected 09/04/2022 09/04/2022 09/04/2022 12:48 PM CDT documented as of this encounter Care Teams Marketing Business Analyst Relationship Specialty Start Date End Date Brian Benedict MD [address] [address] PCP - General 07/11/16 02/10/17 Dre Payton MD [address] [place] [address] PCP - General Family Medicine 02/11/17 09/30/22 Lonnie Nazario MD [address] [place] [address] PCP - General Emergency Medicine 10/01/22 09/23/23 Audelia Roberts, MARISA [address] [place] [address] PCP - General Family Medicine 09/24/23 documented as of this encounter
--- OUTSIDE RECORDS SUMMARY | 2024-07-15 06:57 | XMS_ITS | Encounter Summary ---
Author Organization [facility] Address 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
--- OUTSIDE RECORDS SUMMARY | 2024-07-15 06:57 | XMS_ITS | CONTINUITY OF CARE DOCUMENT ---
Author Name rojas xie Address Unknown Organization [facility] Address [address] [place] [address] Phone [phone] Care Team Providers Care Wire Machine Cutter Name Role Phone Vince ARANA, Keo Unavailable [phone] RENEE PEDERSEN MD Unavailable RENEE PEDERSEN MD Unavailable [phone] PROBLEMS Condition Status Date Provider Notes CAD-CYP TO [facility]AD 2004, NEGATIVE STRESS 12/19 active 20 11/19/14 Keo Clarke MD HYPERCHOLESTEROLEMIA active Keo Clarke MD HTN ESSENTIAL active Keo Clarke MD ENCOUNTERS Date Type Provider Location Encounter Diag nosis - In-person encounter Office Visit Keo [facility] CAD-CYP TO [facility] 2004, NEGATIVE STRESS 12/19HYPERCHOLESTERO LEMIAHTN ESSENTIAL VITAL SIGNS Date Observation Value Provider pulse rate 52 /min Kayla overton oxygen saturation, oximetry 98 % Kayla Burden respiratory rate E&M 16 /min Morgan Burden weight E&M 162.2 [lb_av] Kayla sung RESULTS Date Observation Value Provider Reference Range Interpretation Location 0 triglyceride, serum, fasting 121 mg/dL Mckenzie Rodas RN 0 HDL cholesterol, serum 34 mg/dL Mckenzie Rodas RN 0 LDL cholesterol, serum 115.8 mg/dL Mckenzie Rodas RN 0 cholesterol, serum 174 mg/dL Mckenzie Rodas RN HISTORY OF MEDICATION USE Medication Status Instructions Dates Provider Indications Com ments SIMCOR 500-20 MG ORAL TABLET EXTENDED RELEASE 24 HOUR active TWO TAB. DAILY AT BEDTIME Keo Clarke MD ASPIRIN 325 MG ORAL TABLET active ONE TAB. DAILY Keo Clarke MD SINGULAIR 10 MG ORAL TABLET active once daily Kayla Burden NAPROXEN TABS active 500 mg twice daily Kayla Burden SKELAXIN 800 MG ORAL TABLET active 3-4 times daily Kayla Burden SOCIAL HISTORY Date Observation Value Provider social history E&M Marital Statu s: L gabi with family/friends E thnicity: Keo Clarke MD cigarette use 2 Keo Clarke MD social history reviewed E&M reviewed Keo Clarke MD physical exercise, f requency, days per week yes [employer] caffeine use, averag e drinks per day yes [facility] alcohol use, average drinks per day none [employer] number of years as a smoker 10 years or m ore [facility] MENTAL STATUS Date Observation Value Provider assessment of judgme nt and insight E&M Alert and oriented to time, place and person. Mood and affect are normal. Keo Clarke MD INSURANCE PROVIDERS Payer name Policy type / Coverage type [facility] ID [employer]o [employer] [id number] TREATMENT PLAN Date Name Performer follow up:His update d medication list for this problem includes: Simcor 500-20 Mg Tb24 (Niacin-simvastatin) ..... Two tab. daily at bedtime Keo Clarke MD follow up:Orders: C arotid Duplex Bilateral (CPT-57686) Keo Clarke MD follow up: H is updated medication list for this problem includes: Simcor 500-20 Mg Tb24 (Niacin-simvastatin) ..... Two tab. daily at bedtime Keo Clarke MD follow up: O rders: C arotid Duplex Bilateral (CPT-47506) Keo Clarke MD Date Name Carotid Duplex Bilat eral
--- OUTSIDE RECORDS SUMMARY | 2024-07-15 06:57 | XMS_ITS | Encounter Summary ---
Author Organization [facility] Address [address] [place] [address] Care Team Providers Care Manager Books Name Role Phone Lonnie Nazario MD Primary Care Provider + [phone] Encounter Details Date Type Department Care Team (Late st Contact Info) Description 04/07/2007 Outpatient Historical [facility] EMERGENCY RO[facility] Er, Authorized P NO ADDRESS ON FILE BrucelaTate dalton Jr., MD [address] [place] [address] Social History Tobacco Use Types Packs/Day Years Used Date Smoking Tobacco: Never Assessed Sex and Gender Information Value Date Recorded Sex Assigned at Not on file Legal Sex Male 3:32 AM EMPLOYEE ADVISER Gender Identity Not on file Sexual Orientation Not on file documented as of this encounter Plan of Treatment Not on file documented as of this encounter Visit Diagnoses Not on filedocumented in this encounter Care Teams Manager Books Relationship Specialty Start Date End Date Lonnie Nazario MD [address] [place] [phone] PCP - General Internal Medicine 04/01/23 documented as of this encounter
--- OUTSIDE RECORDS SUMMARY | 2024-07-15 06:57 | XMS_ITS | Encounter Summary ---
Author Organization [employer] Address [address] [place] [address] Care Team Providers Care Cullet Trucker Name Role Phone Lonnie Nazario MD Primary Care Provider + [phone] Encounter Details Date Type Department Care Team (Late st Contact Info) Description 04/11/2006 Outpatient Historical [facility] (Adt Cardiology-[facility]) [address] [place] [phone] Chirag Reddy MD Social History Tobacco Use Types Packs/Day Years Used Date Smoking Tobacco: Never Assessed Sex and Gender Information Value Date Recorded Sex Assigned at Not on file Legal Sex Male 3:32 AM VENDER Gender Identity Not on file Sexual Orientation Not on file documented as of this encounter Plan of Treatment Not on file documented as of this encounter Visit Diagnoses Not on filedocumented in this encounter Care Teams Cullet Trucker Relationship Specialty Start Date End Date Lonnie Nazario MD [address] [place] [address] PCP - General Internal Medicine 04/01/23 documented as of this encounter
--- OUTSIDE RECORDS SUMMARY | 2024-07-15 06:57 | XMS_ITS | Encounter Summary ---
Author Organization [facility] Address 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
--- OUTSIDE RECORDS SUMMARY | 2024-07-15 06:57 | XMS_ITS | Encounter Summary ---
Author Organization [facility] Address [address] [place] [address] Care Team Providers Care Bulking Machine Operator Name Role Phone Lonnie Nazario MD Primary Care Provider + [phone] Encounter Details Date Type Department Care Team (Latest Contact Info) Description 04/22/2006 Outpatient Historical HIS [facility] Arlin Davis MD [facility] [address] Pain in Soft Tissues of Limb (Primary Dx) Social History Tobacco Use Types Packs/Day Years Used Date Smoking Tobacco: Never Assessed Sex and Gender Information Value Date Recorded Sex Assigned at Not on file Legal Sex Male 3:32 AM NUT FEEDER Gender Identity Not on file Sexual Orientation Not on file documented as of this encounter Plan of Treatment Not on file documented as of this encounter Visit Diagnoses Diagnosis Pain in limb- Primary documented in this encounter Care Teams Bulking Machine Operator Relationship Specialty Start Date End Date Lonnie Nazario MD [address] [place] [phone] PCP - General Internal Medicine 04/01/23 documented as of this encounter
--- OUTSIDE RECORDS SUMMARY | 2024-07-15 06:57 | XMS_ITS | Encounter Summary ---
Author Organization [facility] Address [address] [place] [address] Care Team Providers Care Bar Finish Operator Name Role Phone Lonnie Nazario MD Primary Care Provider + [phone] Encounter Details Date Type Department Care Team (Latest Contact Info) Description 06/24/2006 Outpatient Historical HIS [facility] [place] [place] [address] [address] Urinary Tract Infection, Site not Specified (Primary Dx) Social History Tobacco Use Types Packs/Day Years Used Date Smoking Tobacco: Never Assessed Sex and Gender Information Value Date Recorded Sex Assigned at Not on file Legal Sex Male 3:32 AM GROUNDING ENGINEER Gender Identity Not on file Sexual Orientation Not on file documented as of this encounter Plan of Treatment Not on file documented as of this encounter Visit Diagnoses Diagnosis Urinary tract infection, site not specified- Primary documented in this encounter Care Teams Bar Finish Operator Relationship Specialty Start Date End Date Lonnie Nazario MD [address] [place] [address] PCP - General Internal Medicine 04/01/23 documented as of this encounter
--- OUTSIDE RECORDS SUMMARY | 2024-07-15 06:57 | XMS_ITS | Encounter Summary ---
Author Organization [facility] Address [address] [place] [address] Care Team Providers Care Fleet Operations Manager Name Role Phone Brian Beneidct MD Primary Care Provide r Brian Benedict MD Primary Care Provide r Dre Payton MD Primary Care Provider [phone] Lonnie Nazario MD Primary Care Provide r Audelia Roberts NP Primary Care Provider [phone] Encounter Details Date Type Department Care Team (Late st Contact Info) Description 04/24/2016 Orders Only [facility] ProviderOlvin MD [address] [place] [address] Social History Tobacco Use Types Packs/Day Years Used Date Smoking Tobacco: Every Day Comments:Smoking History Pac ks/day: 10 Packs Alcohol Use Standard Drinks/Week Comments No 0 (1 standard drink = 0.6 oz pur e alcohol) Sex and Gender Information Value Date Recorded Sex Assigned at Not on file Legal Sex Male 8:12 AM GRADUATE TEACHING ASSISTANT Gender Identity Not on file Sexual Orientation Not on file documented as of this encounter Plan of Treatment Not on file documented as of this encounter Procedures Procedure Name Priority Date/Time Associated Diagnosis Comments CARDIOLOGY REPORT 04/24/2016 documented in this encounter Results * CARDIOLOGY REPORT (04/24/2016) Anatomical Region Laterality Modality Other Narrative 04/24/2016 Ordered by an unspecified provider. us Historical Provider [facility] NIELSEN Final Result documented in this encounter Visit Diagnoses Not on filedocumented in this encounter Additional Health Concerns Infection Onset Date Last Indicated Resolved Time COVID: Suspected 05/15/2022 05/15/2022 05/15/2022 11:49 AM GRADUATE TEACHING ASSISTANT COVID: Suspected 05/15/2022 05/15/2022 05/15/2022 8:54 PM GRADUATE TEACHING ASSISTANT COVID: Suspected 09/04/2022 09/04/2022 09/04/2022 12:48 PM CDT documented as of this encounter Care Teams Fleet Operations Manager Relationship Specialty Start Date End Date Brian Benedict MD [address] [place] [address] PCP - General 07/11/16 02/10/17 Brian Benedict MD [address] [place] [address] PCP - General 10/02/11 07/10/16 Dre Payton MD [address] [place] [address] PCP - General Family Medicine 02/11/17 09/30/22 Lonnie Nazario MD [address] [place] [address] PCP - General Emergency Medicine 10/01/22 09/23/23 Audelia Roberts, CIGARETTE MAKING EXAMINER [address] [place] [address] PCP - General Family Medicine 09/24/23 documented as of this encounter
--- OUTSIDE RECORDS SUMMARY | 2024-07-15 06:57 | XMS_ITS | Encounter Summary ---
Author Organization [facility] Address [address] [place] [address] Care Team Providers Care Iap Displays Analyst Name Role Phone Audelia Roberts APRN-NYLON HOT WIRE CUTTER Primary Care Provid er Debby Orellana PA-C Unavailable [phone] Reason for Visit * Reason Onset Date Comments Follow-up 09/29/2023 See note Encounter Details Date Type Department Care Team (Late st Contact Info) Description 09/29/2023 Telephone [facility] - Infectious Disease [address] [place] [address] Debby Orellana PA-C [address] [place] [address] Follow-up (See note ) Social History Tobacco Use Types Packs/Day Years Used Date Smoking Tobacco: Former Cigarettes Q uit: 2013 Smokeless Tobacco: Never Alcohol Use Standard Drinks/Week Comments Not Currently 0 (1 standard drink = 0.6 oz pur e alcohol) AUDIT-C Answer Date Recorded Q1: How often do you have a drink containing alcohol? Monthly or less 08/31/2023 Q2: How many drinks containi ng alcohol do you have on a typical day when you are drinking? Patient does not drink Q3: How often do you have si x or more drinks on one occasion? Less than monthly 08/31/2023 Overall Financial Resource Strain (CARDIA) Answe r Date Recorded How hard is it for you to pa y for the very basics like food, housing, medical care, and heating? Not hard at all 08/31/2023 PHQ-2 Answer Date Recorded Patient Health Questionnaire-2 Score 0 09/22/2023 [facility] Occupat ional Health - Occupational Stress Questionnaire Answer Date Recorded Do you feel stress - tense, restless, nervous, or anxious, or unable to sleep at night because your mind is troubled all the time - these days? Not at all 08/31/2023 Hunger Vital Sign Answer Date Recorded Within the past 12 months, y ou worried that your food would run out before you got the money to buy more. Never true 08/31/19 Within the past 12 months, t he food you bought just didn't last and you didn't have money to get more. Never true 08/31/2023 PRAPARE - Transportation Answer Date Re corded In the past 12 months, has l ack of transportation kept you from medical appointments or from getting medications? No 08/12 In the past 12 months, has l ack of transportation kept you from meetings, work, or from getting things needed for daily living? No 08/31/2023 Housing Stability Vital Sign Answer Daniel e Recorded In the last 12 months, was t here a time when you were not able to pay the mortgage or rent on time? No 08/31/2023 In the last 12 months, how many places have you lived? 1 08/31/2023 In the last 12 months, was t here a time when you did not have a steady place to sleep or slept in a senior living (including now)? No 08/31/2023 Sex and Gender Information Value Date Recorded Sex Assigned at Not on file Gender Identity Not on file Sexual Orientation Not on file documented as of this encounter Functional Status Functional Status Response Date of Assess ment Is person deaf or have serious hearing difficult y? No 08/31/2023 Is person blind or have serious difficulty seein g? No 08/31/2023 Does person have serious dif ficulty walking/climbing stairs? No 08/31/2023 Does person have difficulty dressing/bathing? No 08/31/2023 Does person have difficulty doing errands alone? No 08/31/2023 Cognitive Status Response Date of Assessm ent Does person have difficulty concentrating/remembering/making decisions? No 08/31/2023 documented as of this encounter Miscellaneous Notes * Telephone Encounter - Kaley Pereira RN - 09/29/2023 9:20 AM CDT Contacted patient to follow up on patient message in regards chest pain. Patient states he does not feel chest pain/SOB at this time. Patient states: Tuesday 09/26 morning at 0500, felt severe chest pain and thought was having a heart attack, states he has coronary artery disease and history of previous heart attack. On the same day 09/26 at 0900 he declined going to restorationist due to pain and laid down in position, states he fellasleep and woke up at 1100 with no pain. Pain was gone. When asked if he went to the ER, he said he did not go because he had a perfect EKG with his heart doctor visit last week. I advised patient that at any point when chest pain/shortness of breat happens, to go to ER immediately. He agrees with the recommendation and said that he has been told the same thing by his heart doctor. He stated this morning from 2 am to 6:30 am he felt chest pain and ''googled'' side effects of ciprofloxacin. He found out that chest pain while taking ciprofloxacin can occur. I assessed again if there is any ongoing chest pain/shortness of breath at this moment. He stated that he does not feel symptoms of chest pain at this time. He stated he has been told by multiple providers to go to ER when this happens and knows that is the best thing to do. Patient requests to speak to provider, I stated I am gathering all the information and will speak to PA in a few minutes. He acknowledges this information. Patient also added that he also read in internet that alprazolam may be contraindicated in combination with ciprofloxacin. He said he takes this medication (alprazolam) to help him sleep. Patient also states that he feels back pain but that it could also be for multiple surgeries in hisback. I relayed this message to LAYLA. documented in this encounter Plan of Treatment Upcoming Encounters Date Type Department Care Team (Late st Contact Info) Description 09/13/2024 10:15 AM CDT Office Visit [facility] - Orthopedics [address] [place] [address] Brenden Bills MD [facility] [place], [place] [phone] documented as of this encounter Visit Diagnoses Not on filedocumented in this encounter Care Teams Iap Displays Analyst Relationship Specialty Start Date End Date Audelia Roberts, DIE PRESS OPERATOR-NYLON HOT WIRE CUTTER [address] [place] [address] PCP - General Nurse Practitioner 08/19/23 Debby Orellana, PAClarenceC [address] [place] [address] Physician Rn [facility] Infectious Disease 09/22/23 documented as of this encounter
--- OUTSIDE RECORDS SUMMARY | 2024-07-15 06:57 | XMS_ITS | Continuity of Care Document ---
Author Organization [facility] Address [address] [place] [address] [place] [address] Phone Care Team Providers Care Bar Pointer Name Role Phone Angel Olmstead MD, FACS Unavailable Unavailab le Advance Directives Directive Yes / No Effective Date File Name No Information Encounters Encounter Description Practice Location Reason(s) For Visit Diagnoses Date Provider Providers Copied on Encounter [facility], [address], [place], [place], [id number], [place] tel:[phone] SEC Nabil Perez No Information [address] Aysha Ortiz. [address], [address], [place], [place], [id number], [place]. tel:[phone] Family History Family Member Type Diagnosis Age At Onset No Information Payers Payer name Insurance type Covered republican ID Authoriza tion(s) No Information Social History Type Description Quantity Date Captured Comments Sex Male Smoking Status No Information Chief Complaint And Reason For Visit No Information Reason For Referral Reason For Referral No Information History Of Present Illness Encounter Date Complaint History Of Prese nt Illness No Information Functional Status Date Functional Assessmen t No Information Instructions Date Instruction Additional Infor mation No Information Assessments Type Assessment Date No Information Patient Care Teams Name Effective Dates (start - stop) Status Members No Information
--- OUTSIDE RECORDS SUMMARY | 2024-07-15 06:57 | XMS_ITS | Encounter Summary ---
Author Organization [facility] Address [address] [place] [address] Care Team Providers Care Fine Wire Drawer Name Role Phone Lonnie Nazario MD Primary Care Provider + [phone] Encounter Details Date Type Department Care Team (Late st Contact Info) Description 04/10/2006 Inpatient Historical [facility] [place] [address] [place] [id number] Noe Schwartz Other Chest Pain (Primary Dx) Social History Tobacco Use Types Packs/Day Years Used Date Smoking Tobacco: Never Assessed Sex and Gender Information Value Date Recorded Sex Assigned at Not on file Legal Sex Male 3:32 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 Gender Identity Not on file Sexual Orientation Not on file documented as of this encounter Plan of Treatment Not on file documented as of this encounter Procedures Procedure Name Priority Date/Time Associated Diagnosis Comments LIPID PANEL Routine 04/11/2006 6:01 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 TROPONIN (W/REFLEX CKMB/CK) Routine 04/11/2006 12:45 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 TROPONIN (W/REFLEX CKMB/CK) Routine 04/10/2006 4:45 PM WINDOW DISPLAY DESIGNER ED HOLD Routine 04/10/2006 4:45 PM WINDOW DISPLAY DESIGNER CBC WITH DIFFERENTIAL Routine 04/10/2006 4:45 PM WINDOW DISPLAY DESIGNER CBC WITH DIFFERENTIAL Routine 04/10/2006 4:45 PM WINDOW DISPLAY DESIGNER documented in this encounter Results * (ABNORMAL) LIPID PANEL (04/11/2006 6:01 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) CHOLESTEROL 177 100 - 199 mg/dL INTERFACE SYSTEM TRIGLYCERIDE 166(H) 10 - 149 mg/dL INTERFACE SYSTEM HDL 49 40 - 59 mg/dL INTERFACE SYSTEM CHOL/HDL RATIO 3.6 2.0 - 5.0 INTER FACE SYSTEM LDL CALCULATED 95 <=99 mg/dL INTERFACE SYSTEM LIPID PANEL COMMENT See Below INTERFACE SYSTEM Comment: The adult ATP and pediatric NCEP classifications for lipids are available on the [facility] Intranet at: http://[facility] hospitalActivaerohouston healthcare - [facility] medical centeret/[employer]/[email or web address].nsf Select: Lab Policies and Procedures Select: Reference Ranges - Lipids 04/11/2006 6:01 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 Tate Portillo MD CHEMISTRY ORDERABLES Final Resul t Performing Organization Address City/[facility]/[place] de Phone Number INTERFACE SYSTEM Refer to clinic/hospital department * TROPONIN (W/REFLEX CKMB/CK) (04/11/2006 12:45 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) TROPONIN T <0.01 <=0.03 ng/mL INTERFACE SYSTEM TROPONIN T INTERP Negative INTERFACE SYSTEM 04/11/2006 12:4 5 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 Noe Schwartz CHEMISTRY ORDERABLES Final Re sult Performing Organization Address [facility] Co de Phone Number INTERFACE SYSTEM Refer to clinic/hospital department * ED HOLD (04/10/2006 4:45 PM WINDOW DISPLAY DESIGNER) SPECIMEN HOLD, BLOOD 7 days INTERFACE SYSTEM 04/10/2006 4:45 PM WINDOW DISPLAY DESIGNER Historical Provider CHEMISTRY ORDERABLES Final R esult Performing Organization Address [facility] Co de Phone Number INTERFACE SYSTEM Refer to clinic/hospital department * CBC WITH DIFFERENTIAL (04/10/2006 4:45 PM WINDOW DISPLAY DESIGNER) NEUTROPHILS 61 45 - 70 % INTERFAC E SYSTEM LYMPHOCYTES 30 16 - 45 % INTERFAC E SYSTEM MONOCYTES 8 3 - 13 % INTERFACE SYSTEM EOSINOPHILS 0 0 - 7 % INTERFAC E SYSTEM BASOPHILS 0 0 - 2 % INTERFACE SYSTEM NEUTROPHIL ABSOLUTE 4.17 1.90 - 7.00 K/uL INTERFACE SYSTEM LYMPHOCYTE ABSOLUTE 2.04 0.70 - 4.50 K/uL INTERFACE SYSTEM MONOCYTE ABSOLUTE 0.55 0.10 - 1.30 K/uL INTERFACE SYSTEM EOSINOPHIL ABSOLUTE 0.03 0.00 - 0.70 K/uL INTERFACE SYSTEM BASOPHILS ABSOLUTE 0.02 0.00 - 0.20 K/uL INTERFACE SYSTEM 04/10/2006 4:45 PM WINDOW DISPLAY DESIGNER Historical Provider HEMATOLOGY ORDERABLES Final Result Performing Organization Address City/[facility] Phone Number INTERFACE SYSTEM Refer to clinic/hospital department * (ABNORMAL) CBC WITH DIFFERENTIAL (04/10/2006 4:45 PM WINDOW DISPLAY DESIGNER) HEMATOCRIT 46.5 40.0 - 48.0 % INTERFACE SYSTEM HEMOGLOBIN 16.7(H) 13.6 - 16.5 g/dL INTERFACE SYSTEM WBC 6.8 4.0 - 9.8 K/uL INTERFACE SYSTEM RBC 5.20 4.50 - 5.40 M/uL INTERFACE SYSTEM MCV 87.1 82.0 - 99.0 fL INTERFACE SYSTEM MCH 32.3 27.2 - 32.6 pg INTERFACE SYSTEM MCHC 37.1(H) 31.5 - 35.5 % INTERFACE SYSTEM RDW 12.2 11.5 - 14.5 % INTERFACE SYSTEM RDW-STDEV 39.2 37.1 - 48.7 fL INTERFACE SYSTEM PLATELETS 208 140 - 350 K/uL INTERFACE SYSTEM MPV 10.5 9.3 - 12.4 fL INTERFACE SYSTEM 04/10/2006 4:45 PM WINDOW DISPLAY DESIGNER [facility] Provider HEMATOLOGY ORDERABLES Final Result Performing Organization Address [facility] Phone Number INTERFACE SYSTEM Refer to clinic/hospital department * TROPONIN (W/REFLEX CKMB/CK) (04/10/2006 4:45 PM WINDOW DISPLAY DESIGNER) TROPONIN T <0.01 <=0.03 ng/mL INTERFACE SYSTEM TROPONIN T INTERP Negative INTERFACE SYSTEM 04/10/2006 4:45 PM WINDOW DISPLAY DESIGNER us Historical Provider CHEMISTRY ORDERABLES Final R esult INTERFACE SYSTEM Refer to clinic/hospital department documented in this encounter Visit Diagnoses Diagnosis Other chest pain- Primary documented in this encounter Care Teams Fine Wire Drawer Relationship Specialty Start Date End Date Lonnie Nazario MD [address] [place] [id number] PCP - General Internal Medicine 04/01/23 documented as of this encounter
--- OUTSIDE RECORDS SUMMARY | 2024-07-15 06:57 | XMS_ITS | Clinical Summary ---
Author Organization [facility] Address [address] [place] [address] Phone Care Team Providers Care Industrial Equipment Mechanic Name Role Phone Unavailable Unavailable Unavailable Reason for Visit and Chief Complaint Date of surgery: 05/02/2023, Michael is here today now post op from 05/02/2023. His surgery was done in [place]. He has a very complicated surgical history over the last month or two, having had at least two different surgeons work on his L- spine. He contacted me at [facility] inquiring about the sutures he has in his back from his last procedure. The surgeon who did the surgery is unable to remove these in a timely manner so Michael is here today to have these removed. He states the pain in his extremities following surgery is now gone. He only has some belt line type pain, visit for: Low Back Pain - The Chief Complaint is: Suture removal on back Problems Includes: Problems addressed during this encounter and other active Problems Current Visit Onset Date Resolved Date Provider Donte ortiz Status Dorsopathy Low Back Pain Other 05/14/2023 URSULA JADE DO Active Last Documented On 4 9:21AM ; [facility] Plan of Treatment I discussed with Michael that I want [...] now. He can change this dressing every day. - Last Documented On 05/14/2023 9:21AM ; [facility] Instructions to patient Reduced physical activity Last Documented On 4 9:19AM ; [facility] Watch for signs/symptoms of infection Last Documented On 4 9:19AM ; [facility] Education and Decision Aids were provided during visit for: Patient education about orth opedic activities Last Documented On 4 9:19AM ; [facility] Assessments Includes: Assessments from this encounter No Assessments Recorded Instructions Includes: Instructions from this encounter Instructions to patient Reduced physical activity Last Documented On 4 9:19AM ; [facility] Watch for signs/symptoms of infection Last Documented On 4 9:19AM ; [facility] Education and Decision Aids were provided during visit for: Patient education about orth opedic activities Last Documented On 4 9:19AM ; [facility] Medical Equipment - Implanted Devices Includes: Current Devices No Medical Equipment Recorded Medications Includes: Medications discussed during this encounter and other current Medications Discontinued / Stopped on this date on 05/14/2023 GNP Vitamin C 1000 MG Oral Tablet Provide r: Diagnosis: Last Documented On 05/14/2023 9:09AM By FREDIS ROSENTHAL LPN ; [facility] Current Medications (continue as prescribed) Ondansetron HCl 4 MG Oral Tablet 08/01/2023 Provider : URSULA JADE DO Diagnosis: Other low back p ain 1 every 6 hours as needed Last Documented On 08/01/2023 12:04PM By Ursula Jade DO ; [facility] oxyCODONE-Acetaminophen 5-32 5 MG Oral Tablet 08/01/2023 Provider: URSULA JADE DO Diagnosis: Discitis, unspec ified, lumbosacral region 1 every 6 hours as needed Last Documented On 08/01/2023 11:49AM By Ursula Jade DO ; [facility] traMADol HCl 50 MG Oral Tablet 06/27/2023 Provider: URSULA JADE DO Diagnosis: Discitis, unspec ified, lumbar region Take one four times a day as needed Last Documented On 06/27/2023 8:49PM By Ursula Jade DO ; [facility] Daily Probiotic Oral Capsule 05/14/2023 Provider: Diagnosis: Last Documented On 05/14/2023 9:06AM By FREDIS ROSENTHAL LPN ; [facility] Vitamin C 1000 MG Oral Tablet 05/14/2023 Provider: Diagnosis: 2000mg daily Last Documented On 05/14/2023 9:10AM By FREDIS ROSENTHAL LPN ; [facility] SB Low Dose ASA EC 81 MG Oral Tablet Delayed Release 0 05/14/2023 Provider: Diagnosis: Last Documented On 05/14/2023 9:06AM By FREDIS ROSENTHAL LPN ; [facility] ALPRAZolam 0.5 MG Oral Tablet 05/14/2023 Provider: Diagnosis: Last Documented On 05/14/2023 9:05AM By FREDIS ROSENTHAL LPN ; [facility] Metoprolol Succinate ER 25 M G Oral Tablet Extended Release 24 Hour 05/14/2023 Provider: Diagnosis: Last Documented On 05/14/2023 9:04AM By FREDIS ROSENTHAL LPN ; [facility] Rosuvastatin Calcium 20 MG Oral Tablet 05/14/2023 Pr ovider: Diagnosis: Last Documented On 05/14/2023 9:04AM By FREDIS ROSENTHAL LPN ; [facility] Clopidogrel Bisulfate 75 MG Oral Tablet 05/14/2023 P rovider: Diagnosis: Last Documented On 05/14/2023 9:04AM By FREDIS ROSENTHAL LPN ; [facility] Medications Administered Includes: Administered Medications from this encounter No Administered Medications Recorded Vital Signs Includes: Vital Signs from this encounter Vital Name 05/14/2023 09:02A Blood Pressure Sitting (mmHg) 150/82 Pulse Rate-Sitting (bpm) 81 Height (in) 72 Weight (lb) 243 Body Mass Index 33 Body Surface Area 2.3 Last Documented: On 05/14/2023 9:11AM ; [facility] Results Includes: Results discussed during this encounter No Results Recorded For Specified Dates History of Present Illness Includes: History of Present Illness from this encounter NICK WASHINGTON is a 57 year old male. - Allergy list reviewed - Medication list reviewed Social History Description Last Updated Tobacco non-user 05/14/2023 Last Documented On 4 9:21AM ; [facility] Smoking Status Unknown Procedures and Surgical History Includes: Procedures from this encounter Procedures Code Diagnosis Performing Provider Service L ocation Service Date watch for signs/symptoms of infection Last Documented On 4 9:19AM ; [facility] Discussed benefits, risks and alternativ es to treatment Last Documented On 4 9:19AM ; [facility] use of tobacco assessment performed 1000F Last Documented On 4 9:11AM ; [facility] review of medications documented 1160F Last Documented On 4 9:11AM ; [facility] Medical History Includes: Medical History addressed during this encounter Description Last Updated Provides excellent relief 05/14/2023 Last Documented On 4 9:21AM ; [facility] Prior surgery 05/14/2023 Last Documented On 4 9:21AM ; [facility] Family History Includes: Family History addressed during this encounter No Family History Recorded Review of Systems Includes: Review of Systems from this encounter Systemic: No recent weight change. Head: No headache. Endocrine: No excessive sweating. Neurological: No dizziness. Mental Status Includes: Mental Status from this encounter Description Oriented to time, place, and person Functional Status Includes: Functional Status from this encounter No Functional Status Recorded Physical Exam Includes: Physical Exam from this encounter Allergies Includes: Active Allergies Substance Type Reaction Onset Date Resolved Date Statu s Vicodin Allergy 05/14/2023 Active Last Documented On 4 9:12AM ; [facility] traMADol HCl Allergy 05/14/2023 Active Last Documented On 4 9:12AM ; [facility] Encounters Encounter Provider Location Date Check-In Time Check- Out Time Diagnosis ORTHO NEW PATIENT URSULA JADE DO [facility]-OR[facility] 4 8:56AM 9:23AM Insurance Includes: Active Insurance Policies Plan Name Member ID Group # Subscriber Relationship Effect zheng Dates 1 - [facility] [id number] MICHAEL WASHINGTON Self Clinical Notes Includes: Clinical Notes from this encounter * Progress note Date Encounter Last Documented by 05/14/2023 ORTHO NEW PATIENT Last documente d on 05/14/2023; 9:21 AM, Kimberley BRAUN; [facility] Active Problems & Conditions - M54.59 - Dorsopathy Low Back Pain Other Chief Complaint The Chief Complaint is: Suture removal on back. Reason For Visit Visit for: Low Back Pain. Date of surgery: 05/02/2023. Michael is here today now post op from 05/02/2023. His surgery was done in [place]. He has a very complicated surgical history over the last month or two, having had at least two different surgeons work on his L-spine. He contacted me at [facility] inquiring about the sutures he has in his back from his last procedure. The surgeon who did the surgery is unable to remove these in a timely manner so Michael is here today to have these removed. He states the pain in his extremities following surgery is now gone. He only has some belt line type pain. History of Present Illness MICHAEL WASHINGTON is a 57 year old male. - Allergy list reviewed - Medication list reviewed Current Medication - ALPRAZolam 0.5 MG Oral Tablet One tablet daily 0 days, 0 refills - Clopidogrel Bisulfate 75 MG Oral Tablet One tablet daily 0 days, 0 refills - Daily Probiotic Oral Capsule One tablet twice a day 0 days, 0 refills - Metoprolol Succinate ER 25 MG Oral Tablet Extended Release 24 Hour One tablet daily 0 days, 0 refills - Rosuvastatin Calcium 20 MG Oral Tablet One tablet daily 0 days, 0 refills - SB Low Dose ASA EC 81 MG Oral Tablet Delayed Release One tablet daily 0 days, 0 refills - Vitamin C 1000 MG Oral Tablet 2000mg daily, 0 days, 0 refills Past Medical/Surgical History Reported: Provides excellent relief. Surgical / Procedural: Prior surgery. Social History Tobacco use: Tobacco non-user. Allergies - traMADol HCl - Vicodin Review Of Systems Systemic: No recent weight change. Head: No headache. Endocrine: No excessive sweating. Neurological: No dizziness. Physical Findings - Vitals taken 05/14/2023 09:02 am BP-Sitting 150/82 mmHg Pulse Rate-Sitting 81 bpm Height 72 in Weight 243 lbs Body Mass Index 33 kg/m2 Body Surface Area 2.3 m2 General Appearance: - Well developed. - In no acute distress. Neurological: - Oriented to time, place, and person. On examination today his surgical incision is well approximated and clean and dry. The surgical sutures are removed in clinic today under sterile conditions. There was no drainage noted. His dressing removed prior to removal of sutures is clean and dry. This incision has been opened and closed five times over the last few weeks. It looks good concerning the activity that has happened in this spot. Therapy - Watch for signs/symptoms of infection. Discussed benefits, risks and alternatives to treatment. Counseling/Education - Reduced physical activity - Patient education about orthopedic activities Plan I discussed with Michael that I want [...] now. He can change this dressing every day. Practice Management Use of tobacco assessment performed Review of medications documented. Health Reminders - Assess BMI satisfied 05/14/2023. - Assess Tobacco Use satisfied 05/14/2023.
--- OUTSIDE RECORDS SUMMARY | 2024-07-15 06:57 | XMS_ITS | Encounter Summary ---
Author Organization [facility] Address [address] [place] [address] Care Team Providers Care Machine Repair Person Name Role Phone Lonnie Nazario MD Primary Care Provider + [phone] Encounter Details Date Type Department Care Team (Late st Contact Info) Description 04/22/2006 Outpatient Historical [facility] [place] [address] [facility] [address] [address] Arlin Quarles MD [address] [place] [address] [address] [place] [address] Social History Tobacco Use Types Packs/Day Years Used Date Smoking Tobacco: Never Assessed Sex and Gender Information Value Date Recorded Sex Assigned at Not on file Legal Sex Male 3:32 AM [employer]ING [employer] Gender Identity Not on file Sexual Orientation Not on file documented as of this encounter Last Filed Vital Signs Vital Sign Reading Time Taken Comments Blood Pressure 110/80 04/22/2006 3:15 PM [employer] Pulse 80 04/22/2006 3:15 PM [employer] Temperature - - Respiratory Rate - - Oxygen Saturation - - Inhaled Oxygen Concentration - - Weight 64.4 kg (142 lb) 04/22/2006 3:15 PM [employer] Height 182.9 cm (6') 04/22/2006 3:15 PM [employer] Body Mass Index 19.26 04/22/2006 3:15 PM [employer] documented in this encounter Plan of Treatment Not on file documented as of this encounter Visit Diagnoses Not on filedocumented in this encounter Care Teams Machine Repair Person Relationship Specialty Start Date End Date Lonnie Nazario MD [address] [facility] [address] [place] [address] PCP - General Internal Medicine 04/01/23 documented as of this encounter
--- OUTSIDE RECORDS SUMMARY | 2024-07-15 06:57 | XMS_ITS ---
Care Plan - [facility] Created on: July 15, 2024 NACHO WASHINGTON : 1965 Sex: Male Author Organization [facility] Address [address] [place] [address] Phone Care Team Providers Care [employer] Professional Name Role Phone Unavailable Unavailable Unavailable
--- OUTSIDE RECORDS SUMMARY | 2024-07-15 06:57 | XMS_ITS | Encounter Summary ---
Author Organization [facility] Address [address] [place] [address] Care Team Providers Care Show Dog Trainer Name Role Phone Lonnie Nazario MD Primary Care Provider + [phone] Encounter Details Date Type Department Care Team (Latest Contact Info) Description 06/10/2006 Outpatient Historical [facility] Garrick Sheehan MD [address] [place] [address] Displacement of Lumbar Intervertebral Disc without Myelopathy (Primary Dx) Social History Tobacco Use Types Packs/Day Years Used Date Smoking Tobacco: Never Assessed Sex and Gender Information Value Date Recorded Sex Assigned at Not on file Legal Sex Male 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
--- OUTSIDE RECORDS SUMMARY | 2024-07-15 06:57 | XMS_ITS | Clinical Summary ---
Author Organization [facility] Address [address] [place] [address] Phone Care Team Providers Care Bulk Plant Agent Name Role Phone Unavailable Unavailable Unavailable Reason for Visit and Chief Complaint visit for: review of test results, Date of surgery: 05/02/2023, Michael returns today to count includes the [facility] concerning his L-spine problems. At his last visit here on 05/14/2023 I did remove his sutures from his most recent spine surgery. We did order an MRI but this was denied by insurance as one of his doctors at [facility] had also ordered an MRI. He did have surgery on 05/02/2023 that was done in [place]. He has a very complicated surgical history over the last month or two, having had at least two different surgeons work on his L-spine At the time of his last visit he was only having some beltline pain. The extremity pain was gone. ~ ~Unfortunately, this is not true today He states that over the last two days his right side pain has greatly increased. It is painful to lean forward. He is also describing this right sided pain in the SI joint area. The AISI area is also painful, visit for: Low Back Pain - The Chief Complaint is: Suture removal on back, The Chief Complaint is: PRESENTS TODAY TO REVIEW MRI RESULTS ORDERED BY INFECTIOUS DISEASE DR FOR A BACK [facility] PATIENT GAVE MRI DISC TO PROVIDER AT [facility] AND STATES HE WAS TOLD TO COME IN TODAY TO TALK ABOUT IT Problems Includes: Problems addressed during this encounter and other active Problems All Visits Onset Date Resolved Date Provider Condition S tatus Dorsopathy Low Back Pain Other 05/14/2023 URSULA JADE DO Active Last Documented On 9:21AM ; [facility] Plan of Treatment - Physical therapy - Last Documented On 06/08/2023 9:44AM ; [facility] - Home exercises - Last Documented On 06/08/2023 9:44AM ; [facility] I discussed with Michael that his current lab values, as obtained by his [...] His I&D doctor will redraw labs on Thursday. - Last Documented On 06/08/2023 9:44AM ; [facility] Instructions to patient Reduced physical activity Last Documented On 4 9:16AM ; [facility] Education and Decision Aids were provided during visit for: Patient education about orth opedic activities Last Documented On 9:16AM ; [facility] Assessments Includes: Assessments from this encounter Findings - [M54.50 - Low back pain, unspecified] Lower back pain - Last Documented On 06/08/2023 9:44AM ; [facility] Instructions Includes: Instructions from this encounter Instructions to patient Reduced physical activity Last Documented On 4 9:16AM ; [facility] Education and Decision Aids were provided during visit for: Patient education about orth opedic activities Last Documented On 9:16AM ; [facility] Medical Equipment - Implanted Devices Includes: Current Devices No Medical Equipment Recorded Medications Includes: Medications discussed during this encounter and other current Medications Discontinued / Stopped on this date URSULA JADE DO on 06/27/2023 traMADol HCl 50 MG Oral Tablet Provider: URSULA JADE DO Diagnosis: Discitis, unspec ified, lumbar region Last Documented On 06/27/2023 8:34PM By Ursula Jade DO ; [facility] oxyCODONE-Acetaminophen 5-32 5 MG Oral Tablet Provider: URSULA JADE DO Diagnosis: Discitis, unspec ified, lumbosacral region Last Documented On 06/27/2023 8:30PM By Ursula Jade DO ; [facility] oxyCODONE-Acetaminophen 5-32 5 MG Oral Tablet Provider: URSULA JADE DO Diagnosis: Discitis, unspec ified, lumbosacral region Last Documented On 06/27/2023 6:19PM By Ursula Jade DO ; [facility] Current Medications (continue as prescribed) Ondansetron HCl 4 MG Oral Tablet 08/01/2023 Provider : URSULA JADE DO Diagnosis: Other low back p ain 1 every 6 hours as needed Last Documented On 08/01/2023 12:04PM By Ursula Jade DO ; [facility] oxyCODONE-Acetaminophen 5-32 5 MG Oral Tablet 08/01/2023 Provider: URSULA JADE DO Diagnosis: Discitis, unspec ified, lumbosacral region 1 every 6 hours as needed Last Documented On 08/01/2023 11:49AM By Ursula Jade DO ; [facility] traMADol HCl 50 MG Oral Tablet 06/27/2023 Provider: URSULA JADE DO Diagnosis: Discitis, unspec ified, lumbar region Take one four times a day as needed Last Documented On 06/27/2023 8:49PM By Ursula Jade DO ; [facility] Daily Probiotic Oral Capsule 05/14/2023 Provider: Diagnosis: Last Documented On 05/14/2023 9:06AM By FREDIS ROSENTHAL LPN ; [facility] Vitamin C 1000 MG Oral Tablet 05/14/2023 Provider: Diagnosis: 2000mg daily Last Documented On 05/14/2023 9:10AM By FREDIS ROSENTHAL LPN ; [facility] SB Low Dose ASA EC 81 MG Oral Tablet Delayed Release 0 05/14/2023 Provider: Diagnosis: Last Documented On 05/14/2023 9:06AM By FREDIS ROSENTHAL LPN ; [facility] ALPRAZolam 0.5 MG Oral Tablet 05/14/2023 Provider: Diagnosis: Last Documented On 05/14/2023 9:05AM By FREDIS ROSENTHAL LPN ; [facility] Metoprolol Succinate ER 25 M G Oral Tablet Extended Release 24 Hour 05/14/2023 Provider: Diagnosis: Last Documented On 05/14/2023 9:04AM By FREDIS ROSENTHAL LPN ; [facility] Rosuvastatin Calcium 20 MG Oral Tablet 05/14/2023 Pr ovider: Diagnosis: Last Documented On 05/14/2023 9:04AM By FREDIS ROSENTHAL LPN ; [facility] Clopidogrel Bisulfate 75 MG Oral Tablet 05/14/2023 P rovider: Diagnosis: Last Documented On 05/14/2023 9:04AM By FREDIS ROSENTHAL LPN ; [facility] Medications Administered Includes: Administered Medications from this encounter No Administered Medications Recorded Vital Signs Includes: Vital Signs from this encounter Vital Name 06/08/2023 09:11A Height (in) 72 Last Documented: On 06/08/2023 9:12AM ; [facility] Results Includes: Results discussed during this encounter No Results Recorded For Specified Dates History of Present Illness Includes: History of Present Illness from this encounter NICK WASHINGTON is a 58 year old male. - Allergy list reviewed - Medication list reviewed - Pain is constant (100% of the time) - Worse with bending - Worse with arising from a chair - Unchanged by standing - Unchanged by sitting - Lower back pain getting worse Social History Description Last Updated Not a current smoker 06/08/2023 Last Documented On 4 9:44AM ; [facility] Not using drugs 06/08/2023 Last Documented On 4 9:44AM ; [facility] Tobacco non-user 05/14/2023 Last Documented On 4 9:10AM ; [facility] Smoking Status Unknown Procedures and Surgical History Includes: Procedures from this encounter Procedures Code Diagnosis Performing Provider Service L ocation Service Date Discussed benefits, risks and alternatives to treatment Last Documented On 4 9:42AM ; [facility] use of tobacco assessment performed 1000F Last Documented On 4 9:16AM ; [facility] review of medications documented 1160F Last Documented On 4 9:16AM ; [facility] Medical History Includes: Medical History addressed during this encounter Description Last Updated Provides moderate relief 06/08/2023 Last Documented On 4 9:44AM ; [facility] History of essential hypertension 2023 Last Documented On 4 9:44AM ; [facility] History of systemic hypertension 024 Last Documented On 4 9:44AM ; [facility] Provides excellent relief 05/14/2023 Last Documented On 4 9:10AM ; [facility] Prior surgery 05/14/2023 Last Documented On 4 9:10AM ; [facility] Family History Includes: Family History addressed during [...] Active Last Documented On 4 9:12AM ; [facility] traMADol HCl Allergy 05/14/2023 Active Last Documented On 4 9:12AM ; [facility] Encounters Encounter Provider Location Date Check-In Time Check- Out Time Diagnosis FOLLOW UP URSULA JADE DO [facility] 4 9:09AM 9:45AM Assessment of Lower Back Pain Insurance Includes: Active Insurance Policies Plan Name Member ID Group # Subscriber Relationship Effect zheng Dates 1 - [facility] [id number] MICHAEL Amaya Clinical Notes Includes: Clinical Notes from this encounter * Progress note Date Encounter Last Documented by 06/08/2023 FOLLOW UP Last documented on 06/08/2023; 9:44 AM, Kimberley BRAUN; [facility] Active Problems & Conditions - M54.59 - Dorsopathy Low Back Pain Other Chief Complaint The Chief Complaint is: PRESENTS TODAY TO REVIEW MRI RESULTS ORDERED BY INFECTIOUS DISEASE DR FOR A BACK SURGERY DONE BY ANOTHER SURGEON ABOUT A MONTH AGO. PATIENT GAVE MRI DISC TO PROVIDER AT [facility] AND STATES HE WAS TOLD TO COME IN TODAY TO TALK ABOUT ITThe Chief Complaint is: Suture removal on back. Reason For Visit Visit for: Low Back Pain. Visit for: review of test results and Date of surgery: 05/02/2023. Michael returns today to count includes the [facility] concerning his L-spine problems. At his last visit here on 05/14/2023 I did remove his sutures from his most recent spine surgery. We did order an MRI but this was denied by insurance as one of his doctors at [facility] had also ordered an MRI. He did have surgery on 05/02/2023 that was done in [place]. He has a very complicated surgical history over the last month or two, having had at least two different surgeons work on his L-spine At the time of his last visit he was only having some beltline pain. The extremity pain was gone. Unfortunately, this is not true today He states that over the last two days his right side pain has greatly increased. It is painful to lean forward. He is also describing this right sided pain in the SI joint area. The AISI area is also painful. History of Present Illness MICHAEL WASHINGTON is a 58 year old male. - Allergy list reviewed - Medication list reviewed - Pain is constant (100% of the time) - Worse with bending - Worse with arising from a chair - Unchanged by standing - Unchanged by sitting - Lower back pain getting worse Current Medication - ALPRAZolam 0.5 MG Oral Tablet One tablet daily 0 days, 0 refills - Clopidogrel Bisulfate 75 MG Oral Tablet One tablet daily 0 days, 0 refills - Daily Probiotic Oral Capsule One tablet twice a day 0 days, 0 refills - Metoprolol Succinate ER 25 MG Oral Tablet Extended Release 24 Hour One tablet daily 0 days, 0 refills - oxyCODONE-Acetaminophen 5-325 MG Oral Tablet 1 every 6 hours as needed, 15 days, 0 refills - Rosuvastatin Calcium 20 MG Oral Tablet One tablet daily 0 days, 0 refills - SB Low Dose ASA EC 81 MG Oral Tablet Delayed Release One tablet daily 0 days, 0 refills - Vitamin C 1000 MG Oral Tablet 2000mg daily, 0 days, 0 refills Past Medical/Surgical History Reported: Provides excellent relief and Medication provides moderate relief. Surgical / Procedural: Prior surgery. Diagnoses: Essential hypertension Social History Tobacco use: Not a current smoker. Tobacco non-user. Drug Use: Not using drugs. Allergies - traMADol HCl - Vicodin Review Of Systems Systemic: No recent weight change. Head: No headache. Endocrine: No excessive sweating. Neurological: No dizziness. Physical Findings - Vitals taken 06/08/2023 09:11 am Height 72 in General Appearance: - Well developed. - In no acute distress. Eyes: General/bilateral: - Eyes: normal. Musculoskeletal System: Lumbar / Lumbosacral Spine: General/bilateral: - Palpation of the lumbosacral spine revealed abnormalities. - Lumbosacral spine exhibited tenderness on palpation. - Lumbosacral spine pain was elicited by motion. - Lumbosacral spine exhibited a normal appearance. Buttocks: General/bilateral: - Tenderness on palpation of the buttocks. - Right buttock showed tenderness on palpation. Neurological: - Oriented to time, place, and person. On examination today his surgical incision is well approximated and clean and dry. Assessment - [M54.50 - Low back pain, unspecified] Lower back pain Therapy Discussed benefits, risks and alternatives to treatment. Counseling/Education - Reduced physical activity - Patient education about orthopedic activities Discussed - Discussion of orthopedic goals Plan - Physical therapy - Home exercises I discussed with Michael that his current lab values, as obtained by his [...] His I&D doctor will redraw labs on Thursday. Notes Majority of visit was spent in counseling regarding diagnosis & treatment options. Practice Management Use of tobacco assessment performed Review of medications documented. Health Reminders - Assess Need for CT Lung Screen satisfied 06/08/2023. - Assess Tobacco Use satisfied 06/08/2023.
--- OUTSIDE RECORDS SUMMARY | 2024-07-15 06:57 | XMS_ITS | Encounter Summary ---
Author Organization [facility] Address 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
--- OUTSIDE RECORDS SUMMARY | 2024-07-15 06:57 | XMS_ITS | Encounter Summary ---
Author Organization [facility] Address 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
--- OUTSIDE RECORDS SUMMARY | 2024-07-15 06:57 | XMS_ITS | Clinical Summary ---
Author Organization [facility] Address [address] [place] [address] Phone Care Team Providers Care Picker Packer Name Role Phone Unavailable Unavailable Unavailable Reason for Visit and Chief Complaint REFERRAL Problems Includes: Problems addressed during this encounter and other active Problems All Visits Onset Date Resolved Date Provider Condition S tatus Dorsopathy Low Back Pain Other 05/14/2023 URSULA JADE DO Active Last Documented On 9:21AM ; [facility] Plan of Treatment No Plan of Treatment Recorded Assessments Includes: Assessments from this encounter No Assessments Recorded Medical Equipment - Implanted Devices Includes: Current Devices No Medical Equipment Recorded Medications Includes: Medications discussed during this encounter and other current Medications Discontinued / Stopped on this date URSULA JADE DO on 06/27/2023 oxyCODONE-Acetaminophen 5-32 5 MG Oral Tablet Provider: RUSULA JADE DO Diagnosis: Discitis, unspec ified, lumbosacral region Last Documented On 08/01/2023 11:46AM By Ursula Jade DO ; [facility] Current Medications (continue as prescribed) Ondansetron HCl 4 MG Oral Tablet 08/01/2023 Provider : URSULA JADE DO Diagnosis: Other low back p ain 1 every 6 hours as needed Last Documented On 08/01/2023 12:04PM By Ursula Jade DO ; [facility] oxyCODONE-Acetaminophen 5-32 5 MG Oral Tablet 08/01/2023 Provider: URSULA JADE DO Diagnosis: Discitis, unspec ified, lumbosacral region 1 every 6 hours as needed Last Documented On 08/01/2023 11:49AM By Ursula Jade DO ; [facility] traMADol HCl 50 MG Oral Tablet 06/27/2023 Provider: URSULA JADE DO Diagnosis: Discitis, unspec ified, lumbar region Take one four times a day as needed Last Documented On 06/27/2023 8:49PM By Ursula Jade DO ; [facility] Daily Probiotic Oral Capsule 05/14/2023 Provider: Diagnosis: Last Documented On 05/14/2023 9:06AM By FREDIS ROSENTHAL LPN ; [facility] Vitamin C 1000 MG Oral Tablet 05/14/2023 Provider: Diagnosis: 2000mg daily Last Documented On 05/14/2023 9:10AM By FREDIS ROSENTHAL LPN ; [facility] SB Low Dose ASA EC 81 MG Oral Tablet Delayed Release 0 05/14/2023 Provider: Diagnosis: Last Documented On 05/14/2023 9:06AM By FREDIS ROSENTHAL LPN ; [facility] ALPRAZolam 0.5 MG Oral Tablet 05/14/2023 Provider: Diagnosis: Last Documented On 05/14/2023 9:05AM By FREDIS ROSENTHAL LPN ; [facility] Metoprolol Succinate ER 25 M G Oral Tablet Extended Release 24 Hour 05/14/2023 Provider: Diagnosis: Last Documented On 05/14/2023 9:04AM By FREDIS ROSENTHAL LPN ; [facility] Rosuvastatin Calcium 20 MG Oral Tablet 05/14/2023 Pr ovider: Diagnosis: Last Documented On 05/14/2023 9:04AM By FREDIS ROSENTHAL LPN ; [facility] Clopidogrel Bisulfate 75 MG Oral Tablet 05/14/2023 P rovider: Diagnosis: Last Documented On 05/14/2023 9:04AM By FREDIS ROSENTHAL LPN ; [facility] Medications Administered Includes: Administered Medications from this encounter No Administered Medications Recorded Results Includes: Results discussed during this encounter No Results Recorded For Specified Dates History of Present Illness Includes: History of Present Illness from this encounter No History of Present Illness Recorded Social History No Social History Recorded - Smoking Status Unknown Medical History Includes: Medical History addressed during this encounter No Medical History Recorded Family History Includes: Family History addressed during this encounter No Family History Recorded Review of Systems Includes: Review of Systems from this encounter No Review of Systems Recorded Mental Status Includes: Mental Status from this encounter No Mental Status Recorded Functional Status Includes: Functional Status from this encounter No Functional Status Recorded Physical Exam Includes: Physical Exam from this encounter No Physical Exam Recorded Allergies Includes: Active Allergies Substance Type Reaction Onset Date Resolved Date Statu s Vicodin Allergy 05/14/2023 Active Last Documented On 4 9:12AM ; [facility] traMADol HCl Allergy 05/14/2023 Active Last Documented On 4 9:12AM ; [facility] Encounters Encounter Provider Location Date Check-In Time Check-Out Time Diagnosis REFERRAL URSULA JADE DO 05/25/2023 2:05PM 11:59PM Insurance Includes: Active Insurance Policies Plan Name Member ID Group # Subscriber Relationship Effect zheng Dates 1 - [facility] [id number] NACHO Amaya Clinical Notes Includes: Clinical Notes from this encounter No Clinical Notes Recorded
--- OUTSIDE RECORDS SUMMARY | 2024-07-15 06:57 | XMS_ITS | Encounter Summary ---
Author Organization [facility] Address [address] [place] [address] Care Team Providers Care Medical Aides Teacher Name Role Phone Lonnie Nazario MD Primary Care Provider + [phone] Encounter Details Date Type Department Care Team (Latest Contact Info) Description 04/07/2007 Outpatient Historical [facility] Isacc Hernandez MD [address] [facility] [address] [place] [address] Other Syndromes Affecting Cervical Region Social History Tobacco Use Types Packs/Day Years Used Date Smoking Tobacco: Never Assessed Sex and Gender Information Value Date Recorded Sex Assigned at Not on file 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
--- OUTSIDE RECORDS SUMMARY | 2024-07-15 06:57 | XMS_ITS | Encounter Summary ---
Author Organization [facility] Address 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) Social History Tobacco Use Types Packs/Day Years Used Date Smoking Tobacco: Never Assessed Sex and Gender Information Value Date Recorded Sex Assigned at Not on file 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 Gender Identity Not on file Sexual Orientation Not on file documented as of this encounter Plan of Treatment Not on file documented as of this encounter Procedures Procedure Name Priority Date/Time Associated Diagnosis Comments HEMOGLOBIN AND HEMATOCRIT Routine 07/31/2006 9:58 AM CDT URINALYSIS W/REFLEX MICROSCOPIC Routine 07/31/2006 9:58 AM CDT BASIC METABOLIC PANEL Routine 07/31/2006 9:58 AM CDT documented in this encounter Results * URINALYSIS (07/31/2006 9:58 AM CDT) COLOR UA Yellow INTERFACE SYSTEM CLARITY UA Clear Clear INTERFACE SYSTEM SPECIFIC GRAVITY UA 1.025 1.001 - 1.035 INTERFACE SYSTEM PH UA 5.0 5.0 - 8.0 INTERFACE SYSTEM LEUKOCYTE ESTERASE UA Negative Negative INTERFACE SYSTEM NITRITE UA Negative Negative INTERFACE SYSTEM PROTEIN UA Negative Negative INTERFACE SYSTEM GLUCOSE UA Negative Negative INTERFACE SYSTEM KETONES UA Negative Negative INTERFACE SYSTEM UROBILINOGEN UA <1 <1 mg/dL INTE RFACE SYSTEM BILIRUBIN UA Negative Negative INTERFA CE SYSTEM BLOOD UA Negative Negative INTERFACE SYSTEM 07/31/2006 9:58 AM CDT us Juan Alberto MD URINE ORDERABLES Edited Performing Organization Address City/[facility] Co de Phone Number INTERFACE SYSTEM Refer to clinic/hospital department * (ABNORMAL) HEMOGLOBIN AND HEMATOCRIT (07/31/2006 9:58 AM CDT) HEMOGLOBIN 17.1(H) 13.6 - 16.5 g/dL INTERFACE SYSTEM HEMATOCRIT 48.2(H) 40.0 - 48.0 % INTERFACE SYSTEM 07/31/2006 9:58 AM CDT us Juan Alberto MD HEMATOLOGY ORDERABLES Edited Performing Organization Address [facility] de Phone Number INTERFACE SYSTEM Refer to clinic/hospital department * BASIC METABOLIC PANEL (07/31/2006 9:58 AM CDT) GLUCOSE 95 65 - 99 mg/dL INTERFACE SYSTEM CREATININE 0.85 0.67 - 1.17 mg/dL INTERFACE SYSTEM CALCIUM 9.4 8.4 - 10.2 mg/dL INTERFACE SYSTEM BUN 13 6 - 20 mg/dL INTERFACE SYSTEM SODIUM 140 135 - 145 mmol/L INTERFACE SYSTEM POTASSIUM 4.4 3.5 - 4.9 mmol/L INTERFACE SYSTEM CHLORIDE 102 96 - 108 mmol/L INTERFACE SYSTEM CO2 29 22 - 30 mmol/L INTERFACE SYSTEM GFR, >60 >=60 mL/min/1.7 sq meter INTERFACE SYSTEM GFR >60 >=60 mL/min/1.7 sq meter INTERFACE SYSTEM Comment: Estimated GFR rate interpretative information for both Americans and non- Americans is available on the [facility] Intranet at: [email or web address] Select: Lab Policies and Procedures Select: Reference Ranges - GFR 07/31/2006 9:58 AM CDT Juan Alberto MD CHEMISTRY ORDERABLES Edited INTERFACE SYSTEM Refer to clinic/hospital department documented in this encounter Visit Diagnoses Diagnosis Displacement of lumbar intervertebral disc without myelopathy- Primary documented in this encounter Care Teams Marine Pipefitter Relationship Specialty Start Date End Date Lonnie Nazario MD [address] [place] [address] PCP - General Internal Medicine 04/01/23 documented as of this encounter
--- OUTSIDE RECORDS SUMMARY | 2024-07-15 06:57 | XMS_ITS | Clinical Summary ---
Author Organization [facility] Address [address] [place] [address] Phone Care Team Providers Care Flight Dispatcher Name Role Phone Lonnie Nazario MD Primary Care Provider [phone] Allergies Active Allergy Reactions Criticality Noted Date Comments Hydrocodone-Acetamino phen Nausea and Vomiting Low 04/22/2006 Vicodin causes vomiting Tramadol Nausea and Vomiting Low 04/09/2009 Medications oxycodone-acet aminophen (PERCOCET) 5-325 mg Oral tablet Take 2 Tabs by mouth every 4 hours as needed for Pain. 20 Tab none 9 Active Additional Information Patient taking differently: 1-2 TabletOralFOUR TIMES DAILY, Reported on 04/01/2023 clopidogreL (PLAVIX) 75 mg Tablet Take 75 mg by mouth daily. Active rosuvastatin (CRESTOR) 20 mg tablet Take 20 mg by mouth daily. Active metoprolol succinate (TOPROL XL) 25 mg Extended Release 24 hour tablet Take 25 mg by mouth daily. Active Saccharomyces boulardii (FLORASTOR) 250 mg Capsule Take by mouth daily. Active aspirin (ECOTRIN EC) 81 mg Tablet, Delayed Release (E.C.) Take 81 mg by mouth daily. Active ascorbic acid, vitamin C, (VITAMIN C) 1,000 mg Tablet Take 1,000 mg by mouth 2 times daily. Active ALPRAZolam (XANAX) 0.5 mg tablet Take 0.5 mg by mouth 2 times daily as needed for Anxiety. Active ondansetron (ZOFRAN) 4 mg Tablet Take 4 mg by mouth every 8 hours as needed for Nausea/Emesis. Active nitroglycerin (NITROSTAT) 0.4 mg Tablet, Sublingual Place 0.4 mg under tongue every 5 minutes as needed. 1 Active cyclobenzaprin e (FLEXERIL) 10 mg tablet Take 1 Tablet (10 mg) by mouth 3 times daily as needed for Spasm. 60 Tablet 3 Active amoxicillin (AMOXIL) 500 mg capsule Take 500 mg by mouth 3 times daily. Active tiZANidine (ZANAFLEX) 2 mg Tablet Take 4 mg by mouth 3 times daily before meals. Active gabapentin (NEURONTIN) 600 mg tablet Take 600 mg by mouth 2 times daily. Active bisacodyL (DULCOLAX) 5 mg Delayed Release tablet Take 10 mg by mouth 1 time daily as needed for Constipation. Active cholecalcifero l, Vitamin D3, 125 mcg (5,000 unit) Capsule Take 5,000 Units by mouth daily. Active gabapentin (NEURONTIN) 300 mg capsule Take 1 Capsule (300 mg) by mouth daily with lunch. 90 Capsule 4 Active Active Problems Problem Noted Date Diagnosed Date Pain in limb 04/22/2006 Nonspecific (abnormal) findi ngs on radiological and other examination of lung field 04/22/2006 Encounters Date Type Department Care Team Description 05/11/2024 External Device Data [facility] ABSTRACTION Provider, Abstract 04/26/2024 External Device Data [facility] ABSTRACTION Provider, Abstract from Last 3 Months Social History Tobacco Use Types Packs/Day Years Used Date Smoking Tobacco: Former Cigarettes Q uit: 2013 Smokeless Tobacco: Never Tobacco Cessation:Counseling Given: Not Answered Alcohol Use Standard Drinks/Week Comments Not Currently 0 (1 standard drink = 0.6 oz pur e alcohol) one a year Feeling Safe Answer Date Recorded Are you in a relationship wi th someone who hurts you emotionally and/or physically? 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 Gender Identity Not on file Sexual Orientation Not on file Last Filed Vital Signs Vital Sign Reading Time Taken Comments Blood Pressure 136/81 05/07/2023 8:34 AM SLIVER MACHINE OPERATOR Pulse 83 05/07/2023 8:34 AM SLIVER MACHINE OPERATOR Temperature 36.9 C (98.4 F) 05/07/2023 8:34 AM SLIVER MACHINE OPERATOR Respiratory Rate 20 05/07/2023 8:34 AM SLIVER MACHINE OPERATOR Oxygen Saturation 96% 05/07/2023 8:34 AM SLIVER MACHINE OPERATOR Inhaled Oxygen Concentration - - Weight 110.2 kg (243 lb) 05/01/2023 2:59 PM SLIVER MACHINE OPERATOR Height 182.9 cm (6') 05/01/2023 2:59 PM SLIVER MACHINE OPERATOR Body Mass Index 32.96 05/01/2023 2:59 PM SLIVER MACHINE OPERATOR Plan of Treatment Health Maintenance Due Date Last Done Comments Pre-Diabetes and Diabetes Screening 1966 DTAP/TDAP/TD VACCINES (1 - Tdap) 1985 HEPATITIS B VACCINES (1 of 3 - 19+ 3-dose series) 05/14 COLORECTAL SCREENING 2011 Colorectal Cancer Screening 2011 FIT-DNA Q 3 years 2011 FIT/FOBT Q 1 year 2011 Flex Sig/CT Colonography Q 5 years 2011 ZOSTER VACCINE (1 of 2) 2016 INFLUENZA VACCINE (#1) 2023 Medical Devices Implanted Type Area Bag Shaker Device Identifier Shelf Expiration Date Model / Serial / Lot Sealant Duraseal 5ml - [id number] Implanted:Qty: 1 on 04/02/2023 by Mundo Parra MD at [facility] Biological N/A: Spine Lumbar [employer] MINA 07/11/2024 / / [id number] Collagen Duramatrix 3x3in Dms33 - [id number] Implanted:Qty: 1 on 05/02/2023 by Mundo Parra MD at [facility] Collagen N/A: Spine Lumbar RUSSEL- CMF fka ELODIABINGER 04/12/2025 DMS33 / / [id number] Duragen + 1x1in Dp-1011 - [id number] Implanted:Qty: 1 on 04/02/2023 by Mundo Parra MD at [facility] Graft N/A: Spine Lumbar [employer] 09/10/2025 [id number] / / [id number] Description:CHECKED BY Duragen + 1x1in Dp-1011 - [id number] Implanted:Qty: 1 on 04/02/2023 by Mundo Parra MD at [facility] Graft N/A: Spine Lumbar [employer] 06/10/2025 [id number] / / [id number] Description:CHECKED BY Duragen + 3x3in Dp-1033 - [id number] Implanted:Qty: 1 on 05/02/2023 by Mundo Parra MD at [facility] Graft N/A: Spine Lumbar [employer] 02/10/2026 [id number] / / [id number] Hemostatic Surgiflo 8ml W/ Thrombin 2994 - [id number] Implanted:Qty: 1 on 04/02/2023 by Mundo Parra MD at [facility] Hemostatic N/A: Spine Lumbar J&J- [employer] 04/12/2024 2994 / / [id number] Hemostatic Surgiflo 8ml W/ Thrombin 2994 - [id number] Implanted:Qty: 1 on 04/28/2023 by Mundo Parra MD at [facility] Hemostatic N/A: Back J&J- [employer] 04/12/2024 2994 / / [id number] Hemostatic Surgiflo 8ml W/ Thrombin 2994 - [id number] Implanted:Qty: 1 on 05/02/2023 by Mundo Parra MD at [facility] Hemostatic N/A: Spine Lumbar J&J- [employer] 04/12/2024 2994 / / [id number] Grft Sft Tiss Duramatrix 2x2in Implanted:Qty: 1 on 04/28/2023 by Mundo Parra MD at [facility] 03/12/2025 DMS22 / / [id number] Description:ADDED BY CD Insurance BCBS BLUE ACCESS/TRUE BLUE PPO Advance Directives For more information, please contact: [phone] * Full Code (Latest Code Status on File) Date Activated Date Inactivated Comments 05/02/2023 4:18 PM 05/07/2023 7:05 PM * Full Code Date Activated Date Inactivated Comments 04/28/2023 4:01 PM 04/29/2023 6:56 PM * Full Code Date Activated Date Inactivated Comments 04/02/2023 6:05 PM 04/03/2023 4:18 PM Care Teams Flight Dispatcher Relationship Specialty Start Date End Date Lonnie Nazario MD [address] [place] [phone] PCP - General Internal Medicine 04/01/23
--- OUTSIDE RECORDS SUMMARY | 2024-07-15 06:57 | XMS_ITS | Encounter Summary ---
Author Organization [facility] Address [address] [place] [address] Care Team Providers Care Electro Optics Engineer Name Role Phone Lonnie Nazario MD Primary Care Provider + [phone] Encounter Details Date Type Department Care Team (Late st Contact Info) Description 04/11/2006 Outpatient Historical [facility] 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
--- OUTSIDE RECORDS SUMMARY | 2024-07-15 06:57 | XMS_ITS | Encounter Summary ---
Author Organization [facility] Address 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 Gender Identity Not on file Sexual Orientation Not on file documented as of this encounter Plan of Treatment Not on file documented as of this encounter Procedures Procedure Name Priority Date/Time Associated Diagnosis Comments CBC WITH DIFFERENTIAL Routine 03/23/2007 7:08 PM FOOT SETTER CBC WITH DIFFERENTIAL Routine 03/23/2007 7:08 PM FOOT SETTER D-DIMER Routine 03/23/2007 7:08 PM FOOT SETTER C-REACTIVE PROTEIN Routine 03/23/2007 7: 08 PM FOOT SETTER TROPONIN Routine 03/23/2007 7:08 PM FOOT SETTER COMPREHENSIVE METABOLIC PANEL Routine 03/23/2007 7:08 PM FOOT SETTER documented in this encounter Results * TROPONIN (03/23/2007 7:08 PM FOOT SETTER) Pathologist [facility] TROPONIN T 0.01 <=0.03 ng/mL INTERFACE SYSTEM TROPONIN T INTERP Negative INTERFACE SYSTEM 03/23/2007 7:08 PM FOOT SETTER Michael Davies DO CHEMISTRY ORDERABLES Edited Performing Organization Address City/[facility] de Phone Number INTERFACE SYSTEM Refer to clinic/hospital department * CBC WITH DIFFERENTIAL (03/23/2007 7:08 PM FOOT SETTER) Pathologist [facility] NEUTROPHILS 59 45 - 70 % INTERFAC E SYSTEM LYMPHOCYTES 35 16 - 45 % INTERFAC E SYSTEM MONOCYTES 5 3 - 13 % INTERFACE SYSTEM EOSINOPHILS 1 0 - 7 % INTERFAC E SYSTEM BASOPHILS 0 0 - 2 % INTERFACE SYSTEM NEUTROPHIL ABSOLUTE 3.98 1.90 - 7.00 K/uL INTERFACE SYSTEM LYMPHOCYTE ABSOLUTE 2.36 0.70 - 4.50 K/uL INTERFACE SYSTEM MONOCYTE ABSOLUTE 0.35 0.10 - 1.30 K/uL INTERFACE SYSTEM EOSINOPHIL ABSOLUTE 0.07 0.00 - 0.70 K/uL INTERFACE SYSTEM BASOPHILS ABSOLUTE 0.02 0.00 - 0.20 K/uL INTERFACE SYSTEM 03/23/2007 7:08 PM FOOT SETTER Michael Davies DO HEMATOLOGY ORDERABLES Edited Performing Organization Address [facility] de Phone Number INTERFACE SYSTEM Refer to clinic/hospital department * (ABNORMAL) CBC WITH DIFFERENTIAL (03/23/2007 7:08 PM FOOT SETTER) Pathologist [facility] WBC 6.8 4.0 - 9.8 K/uL INTERFACE SYSTEM RBC 5.30 4.50 - 5.40 M/uL INTERFACE SYSTEM HEMOGLOBIN 17.1(H) 13.6 - 16.5 g/dL INTERFACE SYSTEM HEMATOCRIT 47.4 40.0 - 48.0 % INTERFACE SYSTEM MCV 89.4 82.0 - 99.0 fL INTERFACE SYSTEM MCH 32.3 27.2 - 32.6 pg INTERFACE SYSTEM MCHC 36.1(H) 31.5 - 35.5 % INTERFACE SYSTEM RDW 12.4 11.5 - 14.5 % INTERFACE SYSTEM RDW-STDEV 39.8 37.1 - 48.7 fL INTERFACE SYSTEM PLATELETS 189 140 - 350 K/uL INTERFACE SYSTEM MPV 10.5 9.3 - 12.4 fL INTERFACE SYSTEM 03/23/2007 7:08 PM FOOT SETTER Michael Davies DO HEMATOLOGY ORDERABLES Edited Performing Organization Address [facility] Phone Number INTERFACE SYSTEM Refer to clinic/hospital department * D-DIMER (03/23/2007 7:08 PM FOOT SETTER) D-DIMER QUANT <0.22 <=0.42 ug/mL FEU INTERFACE SYSTEM Comment: DVT Screen reference range <0.45 ug/mL FEU D. Dimer Interpretation: The reference range is not clearly established in uncomplicated pregnanc ies. Values above the upper limit of the reference range are common from the 31st to 40th week of . High negative predictive values for DVT have been reported with the current methodology, as part of a comprehensive medical examination, including risk stratification. 03/23/2007 7:08 PM FOOT SETTER Michael Davies DO HEMATOLOGY ORDERABLES Edited Performing Organization Address [facility] Phone Number INTERFACE SYSTEM Refer to clinic/hospital department * C-REACTIVE PROTEIN (03/23/2007 7:08 PM FOOT SETTER) Pathologist [facility] CRP 0.4 0.0 - 0.8 mg/dL INTERFACE SYSTEM 03/23/2007 7:08 PM FOOT SETTER Michael Davies DO CHEMISTRY ORDERABLES Edited Performing Organization Address [facility] Phone Number INTERFACE SYSTEM Refer to clinic/hospital department * (ABNORMAL) COMPREHENSIVE METABOLIC PANEL (03/23/2007 7:08 PM FOOT SETTER) GLUCOSE 87 65 - 99 mg/dL INTERFACE SYSTEM CREATININE 0.93 0.67 - 1.17 mg/dL INTERFACE SYSTEM CALCIUM 9.3 8.4 - 10.2 mg/dL INTERFACE SYSTEM ALKALINE PHOSPHATASE 78 40 - 129 U/L INTERFACE SYSTEM AST 18 12 - 38 U/L INTERFACE SYSTEM ALT 18 0 - 41 U/L INTERFACE SYSTEM TOTAL PROTEIN 7.2 6.3 - 8.6 g/dL INTERFACE SYSTEM ALBUMIN 4.8 3.4 - 4.8 g/dL INTERFACE SYSTEM BILIRUBIN TOTAL 0.5 0.2 - 1.0 mg/dL INTERFACE SYSTEM BUN 14 6 - 20 mg/dL INTERFACE SYSTEM SODIUM 137 135 - 145 mmol/L INTERFACE SYSTEM POTASSIUM 3.4(L) 3.5 - 4.9 mmol/L INTERFACE SYSTEM CHLORIDE 101 96 - 108 mmol/L INTERFACE SYSTEM CO2 26 22 - 30 mmol/L INTERFACE SYSTEM GFR, >60 >=60 mL/min/1. 7 sq meter INTERFACE SYSTEM GFR >60 >=60 mL/min/1. 7 sq meter INTERFACE SYSTEM Comment: Estimated GFR rate interpretative information for both Americans and non- Americans is available on the [facility] Intranet at: [email or web address] Select: Lab Policies and Procedures Select: Reference Ranges - GFR 03/23/2007 7:08 PM FOOT SETTER Michael Davies DO CHEMISTRY ORDERABLES Edited INTERFACE SYSTEM Refer to clinic/hospital department documented in this encounter Visit Diagnoses Not on filedocumented in this encounter Care Teams Engineering Assistant Relationship Specialty Start Date End Date Lonnie Nazario MD [address] [place] [address] PCP - General Internal Medicine 04/01/23 documented as of this encounter
--- OUTSIDE RECORDS SUMMARY | 2024-07-15 06:57 | XMS_ITS | Encounter Summary ---
Author Organization [facility] Address 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
--- OUTSIDE RECORDS SUMMARY | 2024-07-15 06:57 | XMS_ITS | Clinical Summary ---
Author Organization [facility] Address [address] [place] [address] Care Team Providers Care Fall Intern Name Role Phone Audelia Roberts APRN-TUFTER Primary Care Provid er Debby Orellana PA-C [facility] [phone] Source Comments [facility],non-owned Affiliates and Associated Physician Practices is amultiple site organization consisting of ambulatory clinics and hospital sitesin [place], [place], [place] and [place]. This disclosure is being madepursuant to the Care Everywhere program and may not contain all information available regarding this patient. Last updated 18.[facility] Allergies Active Allergy Reactions Criticality Noted Date Comments Hydrocodone GI Discomfort 09/03/2023 Hydrocodone-Acetaminophen GI Discomfort 024 Tramadol GI Discomfort 09/03/2023 Medications * Be aware that medications may not be up to date on this document. Alwaysverify current medications with the patient. Medication Sig Dispensed Refills Start Date End Date Status clopidogrel (plaVIX) 75 MG tablet Take 1 (one) tablet by mouth once daily 02/12/2023 Active aspirin EC (Ecotrin) 81 MG tablet Take 1 (one) tablet by mouth once daily Active rosuvastatin (Crestor) 20 MG tablet Take 1 (one) tablet by mouth once daily 08/12/2023 Active metoprolol succinate XL 24hr (Toprol XL) 25 MG tablet Take 1 (one) tablet by mouth once daily 04/02/2023 Active ALPRAZolam (Xanax) 0.5 MG tablet Take 1 (one) tablet by mouth 2 times daily as needed anxiety Active Ascorbic Acid 1000 MG Take 1 (one) tablet by mouth 2 times daily Active vitamin D3 (Cholecalciferol) 125 MCG (5000 UT) capsule Take 1 (one) capsule by mouth once daily Active bisacodyl EC 5 MG tablet Take 2 (two) tablets by mouth once daily as needed Active Probiotic Product (PROBIOTIC ADVANCED PO) Take by mouth once daily Active omeprazole (PriLOSEC) 20 MG capsule Take 1 (one) capsule by mouth daily before breakfast Active Magnesium Hydroxide (MILK OF MAGNESIA PO) Active acetaminophen (Tylenol) 325 MG tabletIndications :Lumbar pain Take 2 (two) tablets by mouth every 6 hours Maximum allowable Acetaminophen amount = 4 Grams (4000 mg) / 24 hours. 09/03/2023 Active polyethylene glycol 3350 (Miralax) 17 g packetIndications :Lumbar pain Take 17 (seventeen) g by mouth once daily as needed for Constipation 30 packet 09/03/2023 Active senna (Senokot) 8.6 MG tablet Take 1 (one) tablet by mouth once daily 30 tablet 09/03/2023 Active oxyCODONE-acetami nophen (Percocet) 5-325 MG tabletIndications :Discitis of lumbar region Take 1 (one) tablet by mouth every 6 hours as needed for Pain 28 tablet 09/15/2023 Active cyclobenzaprine (Flexeril) 5 MG tablet Take 1 (one) tablet by mouth 3 times daily as needed 10 tablet 09/15/2023 Active Additional Information Patient not taking.Informant: Patient, Reported on 09/22/2023 ondansetron (Zofran) 4 MG tablet Take 1 (one) tablet by mouth every 6 hours as needed For nausea and vomiting. 21 tablet 09/15/2023 Active ciprofloxacin (Cipro) 500 MG tablet Take 1 (one) tablet by mouth 2 times daily for 26 days 52 tablet 09/18/2023 Active ciprofloxacin (Cipro) 500 MG tablet Take 1 (one) tablet by mouth 2 times daily for 90 days 60 tablet 2 10/13/2023 Active ciprofloxacin (Cipro) 500 MG tablet Take 1 (one) tablet by mouth 2 times daily for 90 days 60 tablet 2 11/06/2023 Active sulfamethoxazole- trimethoprim (Bactrim DS; Septra DS) 800-160 MG tablet Take 1 (one) tablet by mouth 2 times daily for 30 days 60 tablet 12/17/2023 Active gabapentin (Neurontin) 300 MG capsuleIndication s:S/P lumbar fusion Take 2 (two) capsules by mouth 3 times daily 180 capsule 1 01/12/2024 Active sulfamethoxazole- trimethoprim (Bactrim DS; Septra DS) 800-160 MG tablet TAKE 1 TABLET BY MOUTH TWICE DAILY 60 tablet 2 04/11/2024 Active Active Problems Problem Noted Date Diagnosed Date Discitis of lumbar region 06/24/2023 Lumbar pain 06/24/2023 Encounters Date Type Department Care Team Description 05/24/2024 Orders Only [facility] - Infectious Disease [address] [place] [phone] Debby Orellana PA-C Discitis of lumbar region 05/17/2024 11:21 AM WALL TAPER - 05/17/2024 11:59 PM WALL TAPER Hospital Encounter [facility] [address] DIAGNOSTIC RAD [facility] [address] [place] [address] Brenden Bills MD Discharge Disposition: Home or Self Care 05/17/2024 11:15 AM WALL TAPER Office Visit [facility] - Orthopedics [address] [place] [phone] Brenden Bills MD Discitis of lumbar region (Primary Dx) 05/17/2024 9:30 AM WALL TAPER Office Visit [facility] - Infectious Disease [address] [place] [phone] Brenden Bills MD Hynes, Ashley M, PA-C Discitis of lumbar region (Primary Dx); Tinnitus of both ears 05/17/2024 Travel 05/16/2024 Orders Only [facility] - Orthopedics [address] [place] [phone] Brenden Bills MD S/P lumbar fusion 05/16/2024 Telephone [facility] - Centralized Scheduling [facility] [place] [phone] Debby Orellana PA-C Patient Requested Call from Last 3 Months Social History Tobacco [...] Date Recorded Patient Health Questionnaire-2 Score 0 01/12/2024 [facility] - Occupational Stress [...] place to sleep or slept in a care home (including now)? No 08/31/2023 Sex and Gender Information Value Date Recorded Sex Assigned at Not on file Gender Identity Not on file Sexual Orientation Not on file Last Filed Vital Signs Vital Sign Reading Time Taken Comments Blood Pressure 127/78 05/17/2024 9:15 AM WALL TAPER Pulse 72 05/17/2024 9:15 AM WALL TAPER Temperature 36.5 C (97.7 F) 05/17/2024 9:15 AM WALL TAPER Respiratory Rate 18 05/17/2024 9:15 AM WALL TAPER Oxygen Saturation 96% 05/17/2024 9:15 AM WALL TAPER Inhaled Oxygen Concentration - - Weight 113.4 kg (250 lb) 05/17/2024 9:15 AM WALL TAPER Height 182.9 cm (6' 0.01 ) 05/17/2024 9:15 AM CS T Body Mass Index 33.9 05/17/2024 9:15 AM WALL TAPER Plan of Treatment Upcoming Encounters Date Type Department Care Team (Late st Contact Info) Description 09/13/2024 10:15 AM CDT Office Visit [facility] - Orthopedics [address] [place] [address], [facility] [place] [address] Brenden Bills MD [address] [place] [phone] Health Maintenance Due Date Last Done Comments COLOGUARD (AGES 45-75) - COLON CA SCREENING 1966 COLON MONITORING 1966 COLONOSCOPY - COLON CA SCREENING 1966 CT COLONOGRAPHY - COLON CA SCREENING 1966 Colorectal Cancer Screening 1966 FIT - COLON CA SCREENING 1966 FLEX SIG - COLON CA SCREENING 1966 HIV SCREENING 1981 HEPATITIS C SCREENING 05/23/1984 DTAP/TDAP/TD VACCINES (1 - Tdap) 1985 HEPATITIS B VACCINE (1 of 3 - 19+ 3-dose series) 1985 PNEUMOCOCCAL VACCINE 50+ (1 of 2 - PCV) 1985 ZOSTER VACCINE (1 of 2) 2016 COVID-19 VACCINE (1 - season) 2023 DEPRESSION SCREENING 04/13/2024 08/11/2023 INFLUENZA VACCINE (Season Ended) 2024 SCREENING FOR DIABETES 05/17/2027 , 04/12/2024, 03/11/2024, Additional history exists HIB VACCINE Aged Out No longer eligi ble based on patient's age to complete this topic HPV VACCINE Aged Out No longer eligi ble based on patient's age to complete this topic MENINGOCOCCAL (Group B) VACCINE SHARED DECISION-MAKING Aged Out No longer eligible based on patient's age to complete this topic MENINGOCOCCAL GROUPS A/C/Y/W VACCINE Aged Out No longer eligible based on patient's age to complete this topic Medical Devices Implanted Type Area Cost Coordinator Device Identifier Shelf Expiration Date Model / Serial / Lot Screw 7mm 50mm Pa Spne Pdcl Xpdm Ti Implanted:Qty: 2 on 08/31/2023 by Brenden Bills MD at [facility] N/A: Spine Lumbar Synthes Spine [id number] / / Screw 7mm 45mm Pa Spne Pdcl Xpdm Ti Implanted:Qty: 2 on 08/31/2023 by Brenden Bills MD at [facility] N/A: Spine Lumbar Synthes Spine [id number] / / Screw Set Ti 5.5mm Spne 1 Inr Ma Xpdm Implanted:Qty: 4 on 08/31/2023 by Brenden Bills MD at [facility] N/A: Spine Lumbar Synthes Spine [id number] / / Damián Spnl 35mm 5.5mm Xpdm Prebnt Ti Ln Implanted:Qty: 2 on 08/31/2023 by Brenden Bills MD at [facility] N/A: Spine Lumbar Synthes Spine [id number] / / Procedures Procedure Name Priority Date/Time Associated Diagnosis Comments LAB RESULTS ORDER 06/13/2024 LAB RESULTS ORDER 06/13/2024 LAB RESULTS ORDER 06/13/2024 XR LUMBAR SPINE 2 OR 3VW Routine 05/17/2024 11:26 AM WALL TAPER S/P lumbar fusion C-REACTIVE PROTEIN Routine 05/17/2024 9: 52 AM WALL TAPER Discitis of lumbar region COMPREHENSIVE METABOLIC PANEL Routine 05/17/2024 9:52 AM WALL TAPER Discitis of lumbar region CBC W AUTO DIFFERENTIAL Routine 05/17/2024 9:52 AM WALL TAPER Discitis of lumbar region from Last 3 Months Results * LAB RESULTS ORDER (06/13/2024) Only the most recent of3 resultswithin the time period is included. 06/13/2024 Narrative 06/13/2024 Ordered by an unspecified provider. Scanned Document LAB - THERAPEUTIC DR ESTIVEN MONITORING ORDERABLES * XR Lumbar Spine 2 or 3Vw (05/17/2024 11:26 AM WALL TAPER) Anatomical Region Laterality Modality Spine Radiographic Melissa ging 05/17/2024 11:5 4 AM WALL TAPER Impressions 05/17/2024 1:04 PM WALL TAPER IMPRESSION: Posterior instrumented spinal fusion at L4-L5. Unchanged alignment. Report dictated by Winston Angeles MD, (vice president payer). IPedro MD have personally reviewed and interpreted this examination/study. > Interpreting Provider: Pedro Mora MD on 05/17/2024 1:04 PM Narrative 05/17/2024 1:04 PM WALL TAPER PROCEDURE: XR LUMBAR SPINE 2 OR 3VW, DATE/TIME OF EXAM: 05/17/2024 11:26 AM, LOCATION [facility] INDICATION: Z98.1: S/P lumbar fusion ADDITIONAL CLINICAL INFORMATION: Ordering Provider Reason For Exam: s/p lumbar fusion COMPARISON: None. FINDINGS: Posterior instrument and spinal fusion of L4-L5 is again seen. Instrumentation is intact. Lumbar lordosis is maintained. No malalignment or subluxation. Mild multilevel degenerative disc and joint disease greatest at L4-L5 with partial fusion. Procedure Note Pedro Mora MD - 05/17/2024 PROCEDURE: XR LUMBAR SPINE 2 OR 3VW, DATE/TIME OF EXAM: 05/17/2024 11:26 AM, LOCATION [facility] INDICATION: Z98.1: S/P lumbar fusion ADDITIONAL CLINICAL INFORMATION: Ordering Provider Reason For Exam: s/p lumbar fusion COMPARISON: None. FINDINGS: Posterior instrument and spinal fusion of L4-L5 is again seen. Instrumentation is intact. Lumbar lordosis is maintained. Nomalalignment or subluxation. Mild multilevel degenerative disc and joint disease greatest at L4-L5 with partial fusion. IMPRESSION: Posterior instrumented spinal fusion at L4-L5. Unchanged alignment. Report dictated by Winston Angeles MD, (vice president payer). I, Pedro Mora MD have personally reviewed and interpreted this examination/study. > Interpreting Provider: Pedro Mora MD on 05/17/2024 1:04 PM Brenden Bills MD DIAGNOSTIC IMAGING O RDERABLES * (ABNORMAL) C-REACTIVE PROTEIN (05/17/2024 9:52 AM WALL TAPER) Pathologist [facility] C-Reactive Protein 0.8(H) <=0.5 mg/dL 05/17/2024 11:09 AM [facility] Blood BLOOD SPECIMEN / Unknown Lab Venipuncture / Unknown 05/17/2024 9:52 AM WALL TAPER 05/17/2024 10:37 AM [facility] Debby Orellana PA-C LAB - CHEMISTRY RODERICK RUTH [facility] Organization Address City/State/ZIP Co de Phone Number [address] [address], [facility] [phone] * CBC W/ DIFFERENTIAL (05/17/2024 9:52 AM WALL TAPER) WBC 6.2 4.0 - 10.7 x10E9/L 05/17/2024 10:44 AM [facility] RBC Count 5.07 4.30 - 5.80 x10E12/L 05/17/2024 10:44 AM [facility] Hemoglobin 15.4 13.3 - 17.5 g/dL 05/17/2024 10:44 AM [facility] Hematocrit 45.9 38.7 - 51.1 % 05/17/2024 10:44 AM [facility] MCV 90.5 80.0 - 98.0 fL 05/17/2024 10:44 AM [facility] MCH 30.4 26.7 - 33.6 pg 05/17/2024 10:44 AM [facility] MCHC 33.6 31.7 - 36.3 g/dL 05/17/2024 10:44 AM [facility] RDW-CV 12.7 11.3 - 14.8 % 05/17/2024 10:44 AM [facility] Platelet Count 155 150 - 420 x10E9/L 05/17/2024 10:44 AM [facility] MPV 10.0 7.8 - 11.4 fL 05/17/2024 10:44 AM [facility] Neutrophil % 58.6 41.0 - 74.0 % 05/17/2024 10:44 AM [facility] Lymphocyte % 30.9 17.0 - 47.0 % 05/17/2024 10:44 AM [facility] Monocyte % 7.6 3.0 - 11.0 % 05/17/2024 10:44 AM [facility] Eosinophil % 2.1 0.0 - 7.0 % 05/17/2024 10:44 AM [facility] Basophil % 0.5 0.0 - 1.6 % 05/17/2024 10:44 AM [facility] Immature Granulocytes % 0.3 0.0 - 1.0 % 05/17/2024 10:44 AM [facility] Neutrophil Absolute 3.65 1.60 - 7.50 x10E9/L 05/17/2024 10:44 AM [facility] Lymphocyte Absolute 1.92 1.00 - 4.40 x10E9/L 05/17/2024 10:44 AM [facility] Monocyte Absolute 0.47 0.15 - 1.00 x10E9/L 05/17/2024 10:44 AM [facility] Eosinophil Absolute 0.13 0.00 - 0.60 x10E9/L 05/17/2024 10:44 AM [facility] Basophil Absolute 0.03 0.00 - 0.13 x10E9/L 05/17/2024 10:44 AM [facility] Blood BLOOD SPECIMEN / Unknown Lab Venipuncture / Unknown 05/17/2024 9:52 AM [facility] 05/17/2024 10:37 AM [facility] Debby Orellana PA-C LAB - HEMATOLOGY ORD ERABLES [facility] [address] [place] [address], [facility] [phone] * COMPREHENSIVE METABOLIC PANEL (05/17/2024 9:52 AM [facility]) BUN 14 7 - 26 mg/dL 05/17/2024 11:09 AM [facility] Creatinine 0.81 0.71 - 1.16 mg/dL 05/17/2024 11:09 AM [facility] Sodium 138 136 - 145 mmol/L 05/17/2024 11:09 AM [facility] Potassium 3.8 3.5 - 4.5 mmol/L 05/17/2024 11:09 AM [facility] Chloride 104 98 - 107 mmol/L 05/17/2024 11:09 AM [facility] CO2 24 22 - 29 mmol/L 05/17/2024 11:09 AM [facility] Glucose 97 70 - 99 mg/dL 05/17/2024 11:09 AM [facility] Calcium 9.6 8.4 - 10.2 mg/dL 05/17/2024 11:09 AM [facility] Protein Total 7.1 6.0 - 8.3 g/dL 05/17/2024 11:09 AM [facility] Albumin 4.5 3.4 - 5.0 g/dL 05/17/2024 11:09 AM [facility] Bilirubin Total 0.5 0.2 - 1.2 mg/dL 05/17/2024 11:09 AM [facility] Alkaline Phosphatase 79 40 - 150 U/L 05/17/2024 11:09 AM [facility] ALT 26 5 - 55 U/L 05/17/2024 11:09 AM [facility] AST 25 5 - 34 U/L 05/17/2024 11:09 AM [facility] Anion Gap 10 6 - 16 05/17/2024 11:09 AM [facility] BUN/Creatinine Ratio 17 7 - 23 05/17/2024 11:09 AM [facility] Osmolality Calculated 286 275 - 295 mOsm/kg 05/17/2024 11:09 AM [facility] Albumin/Globulin Ratio 1.7 1.1 - 2.3 05/17/2024 11:09 AM [facility] eGFR by CKD-EPI >90 >=90 mL/min/1.7 3 m2 05/17/2024 11:09 AM [facility] Blood BLOOD SPECIMEN / Unknown Lab Venipuncture / Unknown 05/17/2024 9:52 AM [facility] 05/17/2024 10:37 AM [facility] Debby Orellana PA-C LAB - CHEMISTRY RODERICK RUTH [facility] [address] [place] [address], [facility] [phone] from Last 3 Months Advance Directives * Full Code (Latest Code Status on File) Date Activated Date Inactivated Comments 08/31/2023 3:05 PM 09/03/2023 5:09 PM * Full Code Date Activated Date Inactivated Comments 08/31/2023 3:05 PM 08/31/2023 3:05 PM Care Teams Fall Intern Relationship Specialty Start Date End Date Audelia Roberts, MACHINE ETCHER-TUFTER [address] [place] [address] PCP - General Nurse Practitioner 08/19/23 Debby Orellana PA-C [address] [place] [address] Physician Facilities Mechanical Design Engineer Infectious Disease 09/22/23
--- OUTSIDE RECORDS SUMMARY | 2024-07-15 06:58 | XMS_ITS | Encounter Summary ---
Author Organization [facility] Address [address] [place] [address] Care Team Providers Care Health Associate Name Role Phone Lonnie Nazario MD Primary Care Provider + [phone] Encounter Details Date Type Department Care Team (Late st Contact Info) Description 04/28/2006 Orders Only [facility] Internal Medicine Medical [place] [facility] [address] [address] Arlin Quarles MD [address] [place] [address] [address] [place] [address] Social History Tobacco Use Types Packs/Day Years Used Date Smoking Tobacco: Never Assessed Sex and Gender Information Value Date Recorded Sex Assigned at Not on file Legal Sex Male 3:32 AM APPLICATION TRAINER Gender Identity Not on file Sexual Orientation Not on file documented as of this encounter Progress Notes * Arlin Quarles MD - 09/07/2007 11:58 AM CDT TIME:09:48 am PATIENT`S HOME PHONE: PATIENT`S WORK PHONE: PATIENT`S INSURANCE: [facility] WHO TOOK THE CALL: Christine Coley I GENERAL INFORMATION ALTERNATIVE PHONE NUMBER: [phone] WHO CALLED: Patient called. CURRENT ALLERGY LIST: [facility] NUMBER: [phone] SECTION 1: pain in left upper arm and shoulder is still ther and wants to know if he can get a script for pain medication ...percocet 2 tablets tid......one dose not take the pain away....I faxed over orders for his PT today and he will call to make appt for trigger point injections but is out of pain medication now..... DOCTOR`S RESPONSE: tisha 04/28/06 at 10:18 am OK until he sees PT and Dr. Soalres. Please confirm he's set up appt. Also- another unrelated issue that needs to be followed up is that while he was in hospital he had CT scan of chest which showed [address] scan needs to be repeated to see if that lymph node is still there in about 2 months. Have him set up follow up appt in 2 months. MEDICATIONS: Call in to Pharmacy PERCOCET ORAL TABLET 5-325 MG, 2 po tid, 90 Dispensed, status: NEW PRESCRIPTION, 04/28/2006. FINAL ACTION: selvin 04/28/06 at 10:41 am Spoke with patient 04/28/06 at 10:41 am. pt. stated he is in the process of setting up appts. with PT and Dr. Solares....ordered CT of chest and faxed to scheduling for f/u in 2 months.....pt stated after setting up cat scan, he will call to make f/u appt. here. Called pharmacy at 04/28/06 at 10:43 am. kn documented in this encounter Plan of Treatment Not on file documented as of this encounter Visit Diagnoses Not on filedocumented in this encounter Care Teams Health Associate Relationship Specialty Start Date End Date Lonnie Nazario MD [address] [place] [address] PCP - General Internal Medicine 04/01/23 documented as of this encounter
--- OUTSIDE RECORDS SUMMARY | 2024-07-15 06:58 | XMS_ITS | Encounter Summary ---
Author Organization [facility] Address [address] [place] [address] Care Team Providers Care C++ Professor Name Role Phone Lonnie Nazario MD Primary Care Provider + [phone] Encounter Details Date Type Department Care Team (Late st Contact Info) Description 04/27/[address] 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
[2024-07-15 07:42] LABS: Basophils Percent Auto 0.6 % (0.2-1.2); Eosinophils Absolute Auto 0.2 K/mm3 (0-0.3); Eosinophils Percent Auto 2.7 % (0-4.4); Hematocrit 45.4 % (42.0-52.0); Hemoglobin 15.5 g/dL (14.0-18.0); Immature Granulocyte Absolute 0.02 K/mm3 (0.00-0.031); Immature Granulocyte Percent A 0.3 % (0-0.5); Lymphocytes Absolute Auto 2.04 K/mm3 (0.9-3.2); Mean Corpuscular HGB Conc 34.1 g/dl (32-36); Mean Corpuscular Hemoglobin 30.5 pg (26-34); Mean Corpuscular Volume 89.2 fl (80-100); Mean Platelet Volume 9.8 fl (7.4-10.4); Monocytes Absolute Auto 0.5 K/mm3 (0.1-0.6); Monocytes Percent Auto 6.8 % (2.6-8.5); Neutrophils Absolute Auto 4.3 K/mm3 (1.3-6.7); Neutrophils Percent Auto 60.6 % (45.5-73.1); Platelet Count Result 163 k/mm3 (150-375); Red Blood Count 5.09 M/mm3 (4.6-6.20); Red Cell Distribution Width 12.8 % (11.5-14.5)
[2024-07-15 08:01] LABS: Alanine Aminotransferase 38 U/L (6-50); Albumin Level 4.6 g/dL (3.5-5.1); Alkaline Phosphatase 81 U/L (38-126); Anion Gap 9 mmol/L (4-12); Aspartate Amino Transferase 33 U/L (17-59); Bilirubin,Total 0.8 mg/dL (0.2-1.3); Blood Urea Nitrogen 17 mg/dL (9-20); Calcium 9.2 mg/dL (8.4-10.2); Carbon Dioxide 26 mmol/L (22-30); Chloride 103 mmol/L (98-107); Estimated Glomerular Filt Rate > 60; Glucose 98 mg/dL (65-110); Potassium 4.1 mmol/L (3.4-5.0); Sodium 138 mmol/L (137-145)
[2024-07-15 08:11] LABS: Erythrocyte Sedimentation Rate 12 mm/hr (0-20)
[2024-07-15 08:33] LABS: Prostate Specific Antigen 0.5 ng/mL (< OR = 4.0)
[2024-07-17 03:28] LABS: CRP, High Sensitivity 4.8 mg/L
[2024-07-18 15:33] LABS: ANA Cascade Screen NEGATIVE (NEGATIVE)
== END 2024-07-15 06:53 | disposition home or self-care (01) ==
LOC: ANHLAB 06:54
PROVIDERS: PCP Nurse Practitioner Family; Visit Provider Nurse Practitioner Family
DX: M25.50 Pain in unspecified joint (principal); M54.9 Dorsalgia, unspecified; T81.40XA Infection following a procedure, unspecified, initial encounter; Z12.5 Encounter for screening for malignant neoplasm of prostate
CPT/HCPCS: 36415; 80053; 83516; 84153; 84443; 85025; 85652; 86038; 86141; 86225; 86235; G0103

== ENCOUNTER 2024-08-03 10:35 | Outpatient (CLI) | payer BC, SELFPAY ==
--- NOTE | ~2024-08-03 | MR_ITS ---
EXAMINATION: MR lumbar spine wo/w con DATE: 08/03/2024 11:48 INDICATION: Low back pain and bilateral sciatica. Prior lumbar spine surgery. Prior infection. TECHNIQUE: Magnetic resonance imaging (MRI) of the lumbar spine was performed without and with 20 mL Multihance intravenous contrast. Sequences included sagittal T2-weighted FSE, sagittal T2-weighted FS FSE, and sagittal and axial T1-weighted FSE. Postcontrast sequences included axial T2-weighted FSE, sagittal T1-weighted FSE, and axial and sagittal T1-weighted FS FSE. COMPARISON: 05/17/22 FINDINGS: Alignment is normal. Vertebral body heights are normal. Interval surgical changes in the lower lumbar spine including L4 and L5 laminectomies and instrumented L4-L5 posterior spinal fusion with bilatera l vertical aleksandr and pedicle screw fixation. Severe disc height loss at L4-L5 which is new since the pr ior study. Mild disc height loss at T11-T12 and T12-L1. Unchanged annular fissure at L5-S1. The conus medullaris terminates at T12-L1. There is normal signal in the caudal spinal cord. Paravertebral sof t tissues are unremarkable. No abnormally enhancing lesions identified. The following disc levels are specifically discussed: T12-L1: The disc does not extend beyond the endplate margin. There is mild right facet joint osteoart hritis. There is no neural foraminal stenosis. There is no central canal stenosis. L1-L2: The disc does not extend beyond the endplate margin. There is mild bilateral facet joint osteo arthritis. There is no neural foraminal stenosis. There is no central canal stenosis. L2-L3: The disc does not extend beyond the endplate margin. There is mild bilateral facet joint osteo arthritis. There is minimal left neural foraminal stenosis. There is no central canal stenosis. L3-L4: Left foraminal zone disc protrusion. There is moderate right and mild to moderate left facet j oint osteoarthritis. There is mild right and moderate left neural foraminal stenosis. There is no oj tral canal stenosis. L4-L5: The disc along the extend beyond the endplate margins with significant loss of disc height whi ch given the associated bilateral instrumented posterior spinal fusion suggests possible interval dis cectomy. There is mild to moderate left and moderate right neural foraminal stenosis. There is surveillance sensor officer ior decompression with no central canal stenosis. L5-S1: Disc is mildly bulging with right foraminal zone annular fissure. There is mild bilateral face t joint osteoarthritis. There is mild bilateral neural foraminal stenosis. There is no central canal stenosis. IMPRESSION: 1. New severe disc height loss at L4-L5 which could be due to interval discectomy kidney associated i nterval L4 and L5 laminectomies and instrumented posterior spinal fusion with bilateral vertical aleksandr and pedicle screw fixation. Correlate with surgical history. 2. No other significant change in mild spondylosis in the remainder of the lumbar spine. Reviewed, dictated and finalized at location A. IMPRESSION: 1. New severe disc height loss at L4-L5 which could be due to interval discecto my kidney associated interval L4 and L5 laminectomies and instrumented posterio r spinal fusion with bilateral vertical aleksandr and pedicle screw fixation. Correla te with surgical history. 2. No other significant change in mild spondylosis in the remainder of the lumb ar spine.
--- OUTSIDE RECORDS SUMMARY | 2024-08-03 12:23 | XMS_ITS | Referral Summary ---
Author Organization [facility] Address [address] [place] [address] Care Team Providers Care Global Program Manager Name Role Phone Audelia Roberts NP Primary Care Provider [phone] Encounters Date Type Department Care Team Description 05/13/2024 3:15 PM BIOMETRIC FINGERPRINTING TECHNICIAN Office Visit [facility] Cardiology [address] [place] [address] Dominic Loera MD Coronary artery disease of [place] artery of [place] heart with stable angina pectoris (Primary Dx); [...] 1 by Oral route once 0 0 6 Active aspirin (ASPIRIN LOW DOSE) 81 mg tablet take 1 tablet by oral route every day 0 0 6 Active ascorbic acid (VITAMIN C) 1,000 mg tablet Take 1 tablet (1,000 mg total) by mouth daily Active omeprazole (PriLOSEC) 10 mg capsule Take 1 capsule (10 mg total) by mouth daily Active nitroglycerin (NITROSTAT) 0.[address] 1 tablet (0.4 mg total) under the tongue every 5 (five) minutes as needed for chest pain 25 tablet 3 1 Active cholecalciferol (VITAMIN D-3) 29798 unit capsule Take 1 capsule (10,000 Units total) by mouth daily Active rosuvastatin (CRESTOR) 20 mg tablet TAKE 1 TABLET(20 MG) BY MOUTH DAILY 90 tablet 3 4 Active ALPRAZolam (XANAX) 0.5 mg tablet Take by mouth 2 (two) times a day as needed 4 Active clopidogreL (PLAVIX) 75 mg tabletIndicatio ns:Coronary artery disease of [place] artery of [place] heart with stable angina pectoris TAKE 1 TABLET(75 MG) BY MOUTH DAILY 90 tablet 2 4 Active metoprolol XL (TOPROL-XL) 25 mg extended release tablet TAKE 1 TABLET(25 MG) BY MOUTH DAILY 90 tablet 2 5 Active metoprolol XL (TOPROL-XL) 25 mg extended release tablet TAKE 1 TABLET(25 MG) BY MOUTH DAILY 90 tablet 2 4 025 Discontinued Active Problems Problem Noted Date Diagnosed Date Encounter for medication management 09/24/2023 Pleuritic chest pain 03/27/2022 GALLARDO (dyspnea on exertion) 07/26/2020 Bilateral lower extremity edema 10/04/2019 Chronic sinusitis 11/21/2018 Facial pain, atypical 11/21/2018 Deviated nasal septum 11/21/2018 Anxiety 04/08/2018 Coronary artery disease of [place] artery of [place] heart with stable angina pectoris 02/11/2017 History [...] on file Legal Sex Male 8:12 AM BIOMETRIC FINGERPRINTING TECHNICIAN Gender Identity Not on file Sexual Orientation Not on file Last Filed Vital Signs Vital Sign Reading Time Taken Comments Blood Pressure 114/66 05/13/2024 3:08 PM BIOMETRIC FINGERPRINTING TECHNICIAN Pulse 72 05/13/2024 3:08 PM BIOMETRIC FINGERPRINTING TECHNICIAN Temperature 36.9 C (98.4 F) 09/04/2022 11:20 AM CDT Respiratory Rate 18 09/04/2022 11:2 0 AM CDT Oxygen Saturation 96% 05/13/2024 3:0 8 PM BIOMETRIC FINGERPRINTING TECHNICIAN Inhaled Oxygen Concentration - - Weight 115.2 kg (254 lb) 05/13/2024 3:0 8 PM BIOMETRIC FINGERPRINTING TECHNICIAN Wearing brace on left leg. Height 182.9 cm (6') 05/13/2024 3:08 PM BIOMETRIC FINGERPRINTING TECHNICIAN Body Mass Index 34.45 05/13/2024 3:08 PM BIOMETRIC FINGERPRINTING TECHNICIAN Plan of Treatment [place] [address] [facility] [employer] [place] Care Teams Global Program Manager Relationship Specialty Start Date End Date Audelia Roberts NP PCP - General Family Medicine 09/24/23
--- OUTSIDE RECORDS SUMMARY | 2024-08-03 12:23 | XMS_ITS ---
Author Organization [facility] Address [address] [place] [address] Phone Care Team Providers Care Electrical Power Engineer Name Role Phone Unavailable Unavailable Unavailable Problems Includes: Active, inactive, and resolved Problems All Visits Onset Date Resolved Date Provider Condition S tatus Dorsopathy Low Back Pain Other 05/14/2023 URSULA JADE DO Active Last Documented On 4 9:21AM ; [facility] Plan of Treatment Findings Encounter Date [...] Documented On 4 9:44AM ; [facility] Ordered home exercises FOLLOW UP with URSULA SALAZAR DO 06/08/2023 Last Documented On 4 9:44AM ; [facility] Ordered physical therapy FOLLOW UP with URSULA JADE DO 06/08/2023 Last Documented On 4 9:44AM ; [facility] I discussed with Michael that [...] 05/14/2023 Last Documented On 4 9:21AM ; [facility] Instructions to patient Reduced physical activity Last Documented On 4 9:16AM ; [facility] Reduced physical activity Last Documented On 4 9:19AM ; [facility] Watch for signs/symptoms of infection Last Documented On 4 9:19AM ; [facility] Education and Decision Aids were provided during visit for: Patient education about orth opedic activities Last Documented On 4 9:16AM ; [facility] Patient education about orth opedic activities Last Documented On 4 9:19AM ; [facility] Assessments Includes: Assessments for all patient encounters Findings Encounter Date Assessment of lower back pain FOLLOW UP with TAM JADE DO 06/08/2023 Last Documented On 4 9:44AM ; [facility] Instructions Includes: Instructions for all patient encounters Instructions to patient Reduced physical activity Last Documented On 4 9:16AM ; [facility] Reduced physical activity Last Documented On 4 9:19AM ; [facility] Watch for signs/symptoms of infection Last Documented On 4 9:19AM ; [facility] Education and Decision Aids were provided during visit for: Patient education about orth opedic activities Last Documented On 4 9:16AM ; [facility] Patient education about orth opedic activities Last Documented On 4 9:19AM ; [facility] Medical Equipment - Implanted Devices Includes: Current and historical Devices No Medical Equipment Recorded Medications Includes: Current and historical Medications Current Medications (continue as prescribed) Ondansetron HCl 4 MG Oral Tablet 08/01/2023 Provider : URSULA JADE DO Diagnosis: Other low back p ain 1 every 6 hours as needed Last Documented On 08/01/2023 12:04PM By Ursula Jade DO ; [facility] oxyCODONE-Acetaminophen 5-32 5 MG Oral Tablet 08/01/2023 Provider: URSULA JADE DO Diagnosis: Discitis, unspec ified, lumbosacral region 1 every 6 hours as needed Last Documented On 08/01/2023 11:49AM By Ursula Jade DO ; [facility] traMADol HCl 50 MG Oral Tablet 06/27/2023 Provider: URSULA JADE DO Diagnosis: Discitis, unspec ified, lumbar region Take one four times a day as needed Last Documented On 06/27/2023 8:49PM By Ursula Jade DO ; [facility] Daily Probiotic Oral Capsule 05/14/2023 Provider: Diagnosis: Last Documented On 05/14/2023 9:06AM By FREDIS ROSENTHAL LPN ; [facility] Vitamin C 1000 MG Oral Tablet 05/14/2023 Provider: Diagnosis: 2000mg daily Last Documented On 05/14/2023 9:10AM By FREDIS ROSENTHAL LPN ; [facility] SB Low Dose ASA EC 81 MG Oral Tablet Delayed Release 0 05/14/2023 Provider: Diagnosis: Last Documented On 05/14/2023 9:06AM By FREDIS ROSENTHAL LPN ; [facility] ALPRAZolam 0.5 MG Oral Tablet 05/14/2023 Provider: Diagnosis: Last Documented On 05/14/2023 9:05AM By FREDIS ROSENTHAL LPN ; [facility] Metoprolol Succinate ER 25 M G Oral Tablet Extended Release 24 Hour 05/14/2023 Provider: Diagnosis: Last Documented On 05/14/2023 9:04AM By FREDIS ROSENTHAL LPN ; [facility] Rosuvastatin Calcium 20 MG Oral Tablet 05/14/2023 Pr ovider: Diagnosis: Last Documented On 05/14/2023 9:04AM By FREDIS ROSENTHAL LPN ; [facility] Clopidogrel Bisulfate 75 MG Oral Tablet 05/14/2023 P rovider: Diagnosis: Last Documented On 05/14/2023 9:04AM By FREDIS ROSENTHAL LPN ; [facility] Past Medications on file oxyCODONE-Acetaminophen 5-32 5 MG Oral Tablet 06/27/2023 - 05/25/2023 Provider: URSULA JADE DO Diagnosis: Discitis, unspecified, lumbosacral region 1 every 6 hours as needed Last Documented On 08/01/2023 11:46AM By Ursula Jade DO ; [facility] traMADol HCl 50 MG Oral Tablet 06/27/2023 - 06/08/2023 Provider: URSULA JADE DO Diagnosis: Discitis, unspec ified, lumbar region Take one four times a day as needed Last Documented On 06/27/2023 8:34PM By Ursula Jade DO ; [facility] oxyCODONE-Acetaminophen 5-32 5 MG Oral Tablet 06/27/2023 - 06/08/2023 Provider: URSULA JADE DO Diagnosis: Discitis, unspecified, lumbosacral region 1 every 6 hours as needed Last Documented On 06/27/2023 8:30PM By Ursula Jade DO ; [facility] oxyCODONE-Acetaminophen 5-32 5 MG Oral Tablet 06/04/2023 - 06/08/2023 Provider: URSULA JADE DO Diagnosis: Discitis, unspecified, lumbosacral region 1 every 6 hours as needed Last Documented On 06/27/2023 6:19PM By Ursula Jade DO ; [facility] GN Vitamin C 1000 MG Oral Tablet 05/14/2023 - 024 Provider: Diagnosis: 1000 mg daily Last Documented On 05/14/2023 9:09AM By FREDIS ROSENTHAL LPN ; [facility] Medications Administered Includes: Administered Medications in patient's chart No Administered Medications Recorded Results Includes: Results from 08/04/2023 through 08/03/2024 No Results Recorded For Specified Dates History of Present Illness History of Present Illness not supported for this document type No History of Present Illness Recorded Social History Description Last Updated Not a current smoker 06/08/2023 Last Documented On 4 9:44AM ; [facility] Not using drugs 06/08/2023 Last Documented On 4 9:44AM ; [facility] Tobacco non-user 05/14/2023 Last Documented On 4 9:21AM ; [facility] Smoking Status Unknown Medical History Includes: Medical History in patient's chart Description Last Updated Provides moderate relief 06/08/2023 Last Documented On 4 9:44AM ; [facility] History of essential hypertension 2023 Last Documented On 4 9:44AM ; [facility] History of systemic hypertension 024 Last Documented On 4 9:44AM ; [facility] Provides excellent relief 05/14/2023 Last Documented On 4 9:21AM ; [facility] Prior surgery 05/14/2023 Last Documented On 4 9:21AM ; [facility] Family History Includes: Family History in [...] Active Last Documented On 4 9:12AM ; [facility] traMADol HCl Allergy 05/14/2023 Active Last Documented On 4 9:12AM ; [facility] Insurance Includes: Active Insurance Policies Plan Name Member ID Group # Subscriber Relationship Effect zheng Dates 1 - [facility] [id number] MICHAEL Amaya Clinical Notes Includes: Signed Clinical Notes starting from 05/02/2022 No Clinical Notes Recorded
--- OUTSIDE RECORDS SUMMARY | 2024-08-03 12:23 | XMS_ITS | Encounter Summary ---
Author Organization [facility] Address [address] [place] [address] Care Team Providers Care Magnetic Locater Name Role Phone None, Physician Primary Care Provider Audelia Portillo SPORTS PHYSICAL THERAPIST-ROUGH ROUNDER Primary Care Provid er Debby Orellana PA-C Unavailable [phone] Encounter Details Date Type Department Care Team (Late st Contact Info) Description 08/13/2023 Telephone [facility] - Infectious Disease [address] [place] [address], [facility] [place] [id number] Christiano Altamirano MD [address] [place] [address] [place] [address] Social History Tobacco Use Types Packs/Day Years Used Date Smoking Tobacco: Never Smokeless Tobacco: Never PHQ-2 Answer Date Recorded Patient Health Questionnaire-2 Score 0 08/11/2023 Sex and Gender Information Value Date Recorded Sex Assigned at Not on file Legal Sex Male 5:53 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 Thanks. Patient Call Back Number: [phone] documented in this encounter Plan of Treatment Upcoming Encounters Date Type Department Care Team (Late st Contact Info) Description 09/13/2024 10:15 AM CDT Office Visit [facility] - Orthopedics [address] [place] [address], [place] [address] Brenden Bills MD [address] [place] [id number] documented as of this encounter Visit Diagnoses Not on filedocumented in this encounter Care Teams Magnetic Locater Relationship Specialty Start Date End Date None, Physician PCP - General 06/24/23 08/18/23 Audelia Roberts, SPORTS PHYSICAL THERAPIST-ROUGH ROUNDER [address] [place] [address] PCP - General Nurse Practitioner 08/19/23 Debby Orellana PAClarenceC [address] [place] [address] Physician Enterostomal Therapy Nurse Infectious Disease 09/22/23 documented as of this encounter
--- OUTSIDE RECORDS SUMMARY | 2024-08-03 12:23 | XMS_ITS | Encounter Summary ---
Author Organization [facility] Healthcare Address [address] [place] [address] Care Team Providers Care Counselor Marriage And Family Name Role Phone Lonnie Nazario MD Primary Care Provide r Audelia Roberts FIELD INTERVIEWER Primary Care Provider [phone] Encounter Details Date Type Department Care Team (Late st Contact Info) Description 09/16/2023 Orders Only [facility] Health Information Management [address] [place] [id number] Scanning, Provider Social History Tobacco Use Types Packs/Day Years Used Date Smoking Tobacco: Former Cigarettes Q uit: 05/14/2012 Smokeless Tobacco: Never Comments:Vapes Alcohol Use Standard Drinks/Week Comments No 0 (1 standard drink = 0.6 oz pur e alcohol) Sex and Gender Information Value Date Recorded Sex Assigned at Not on file Legal Sex Male 8:12 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
--- OUTSIDE RECORDS SUMMARY | 2024-08-03 12:24 | XMS_ITS | Encounter Summary ---
Author Organization [facility] Address [address] [place] [address] Care Team Providers Care Food Sanitarian Name Role Phone Lonnie Nazario MD Primary Care Provider + [phone] Encounter Details Date Type Department Care Team (Latest Contact Info) Description 04/22/2006 Outpatient Historical [facility] Arlin Davis MD [facility] [address] [address] Pain in Soft Tissues of Limb (Primary Dx) Social History Tobacco Use Types Packs/Day Years Used Date Smoking Tobacco: Never Assessed Sex and Gender Information Value Date Recorded Sex Assigned at Not on file Legal Sex Male 3:32 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
--- OUTSIDE RECORDS SUMMARY | 2024-08-03 12:24 | XMS_ITS | Clinical Summary ---
Author Organization [facility] Address [address] [place] [address] Phone Care Team Providers Care Derrick Engineer Name Role Phone Unavailable Unavailable Unavailable Reason for Visit and Chief Complaint visit for: review of test results, Date of surgery: 05/02/2023, Michael returns today to [facility] concerning his L-spine problems. At his last visit here on 05/14/2023 I did remove his sutures from his most recent spine surgery. We did order an MRI but this was denied by insurance as one of his doctors at [facility] had also ordered an MRI. He did have surgery on 05/02/2023 that was done in [place]. He has a very complicated surgical history [...] [facility] GAVE MRI DISC TO PROVIDER AT [facility] AND STATES HE WAS TOLD TO COME IN TODAY TO TALK ABOUT IT Problems Includes: Problems addressed during this encounter and other active Problems All Visits Onset Date Resolved Date Provider Condition S tatus Dorsopathy Low Back Pain Other 05/14/2023 URSULA JADE DO Active Last Documented On 9:21AM ; [facility] Plan of Treatment - Physical therapy - Last Documented On 06/08/2023 9:44AM ; [facility] - Home exercises - Last Documented On 06/08/2023 9:44AM ; [facility] I discussed with Michael [...] - Last Documented On 06/08/2023 9:44AM ; [facility] Instructions to patient Reduced physical activity Last Documented On 4 9:16AM ; [facility] Education and Decision Aids were provided during visit for: Patient education about orth opedic activities Last Documented On 9:16AM ; [facility] Assessments Includes: Assessments from this encounter Findings - [M54.50 - Low back pain, unspecified] Lower back pain - Last Documented On 06/08/2023 9:44AM ; [facility] Instructions Includes: Instructions from this encounter Instructions to patient Reduced physical activity Last Documented On 4 9:16AM ; [facility] Education and Decision Aids were provided during visit for: Patient education about orth opedic activities Last Documented On 9:16AM ; [facility] Medical Equipment - Implanted Devices Includes: Current Devices No Medical Equipment Recorded Medications Includes: Medications discussed during this encounter and other current Medications Discontinued / Stopped on this date URSULA JADE DO on 06/27/2023 traMADol HCl 50 MG Oral Tablet Provider: URSULA JADE DO Diagnosis: Discitis, unspec ified, lumbar region Last Documented On 06/27/2023 8:34PM By Ursula Jade DO ; [facility] oxyCODONE-Acetaminophen 5-32 5 MG Oral Tablet Provider: URSULA JADE DO Diagnosis: Discitis, unspec ified, lumbosacral region Last Documented On 06/27/2023 8:30PM By Ursula Jade DO ; [facility] oxyCODONE-Acetaminophen 5-32 5 MG Oral Tablet Provider: URSULA JADE DO Diagnosis: Discitis, unspec ified, lumbosacral region Last Documented On 06/27/2023 6:19PM By Ursula Jade DO ; [facility] Current Medications (continue as prescribed) Ondansetron HCl 4 MG Oral Tablet 08/01/2023 Provider : URSULA JADE DO Diagnosis: Other low back p ain 1 every 6 hours as needed Last Documented On 08/01/2023 12:04PM By Ursula Jade DO ; [facility] oxyCODONE-Acetaminophen 5-32 5 MG Oral Tablet 08/01/2023 Provider: URSULA JADE DO Diagnosis: Discitis, unspec ified, lumbosacral region 1 every 6 hours as needed Last Documented On 08/01/2023 11:49AM By Ursula Jade DO ; [facility] traMADol HCl 50 MG Oral Tablet 06/27/2023 Provider: URSULA JADE DO Diagnosis: Discitis, unspec ified, lumbar region Take one four times a day as needed Last Documented On 06/27/2023 8:49PM By Ursula Jade DO ; [facility] Daily Probiotic Oral Capsule 05/14/2023 Provider: Diagnosis: Last Documented On 05/14/2023 9:06AM By FREDIS ROSENTHAL LPN ; [facility] Vitamin C 1000 MG Oral Tablet 05/14/2023 Provider: Diagnosis: 2000mg daily Last Documented On 05/14/2023 9:10AM By FREDIS ROSENTHAL LPN ; [facility] SB Low Dose ASA EC 81 MG Oral Tablet Delayed Release 0 05/14/2023 Provider: Diagnosis: Last Documented On 05/14/2023 9:06AM By FREDIS ROSENTHAL LPN ; [facility] ALPRAZolam 0.5 MG Oral Tablet 05/14/2023 Provider: Diagnosis: Last Documented On 05/14/2023 9:05AM By FREDIS ROSENTHAL LPN ; [facility] Metoprolol Succinate ER 25 M G Oral Tablet Extended Release 24 Hour 05/14/2023 Provider: Diagnosis: Last Documented On 05/14/2023 9:04AM By FREDIS ROSENTHAL LPN ; [facility] Rosuvastatin Calcium 20 MG Oral Tablet 05/14/2023 Pr ovider: Diagnosis: Last Documented On 05/14/2023 9:04AM By FREDIS ROSENTHAL LPN ; [facility] Clopidogrel Bisulfate 75 MG Oral Tablet 05/14/2023 P rovider: Diagnosis: Last Documented On 05/14/2023 9:04AM By FREDIS ROSENTHAL LPN ; [facility] Medications Administered Includes: Administered Medications from this encounter No Administered Medications Recorded Vital Signs Includes: Vital Signs from this encounter Vital Name 06/08/2023 09:11A Height (in) 72 Last Documented: On 06/08/2023 9:12AM ; [facility] Results Includes: Results discussed during [...] 06/08/2023 Last Documented On 4 9:44AM ; [facility] Not using drugs 06/08/2023 Last Documented On 4 9:44AM ; [facility] Tobacco non-user 05/14/2023 Last Documented On 4 9:10AM ; [facility] Smoking Status Unknown Procedures and Surgical History Includes: Procedures from this encounter Procedures Code Diagnosis Performing Provider Service L ocation Service Date Discussed benefits, risks and alternatives to treatment Last Documented On 4 9:42AM ; [facility] use of tobacco assessment performed 1000F Last Documented On 4 9:16AM ; [facility] review of medications documented 1160F Last Documented On 4 9:16AM ; [facility] Medical History Includes: Medical History addressed during this encounter Description Last Updated Provides moderate relief 06/08/2023 Last Documented On 4 9:44AM ; [facility] History of essential hypertension 2023 Last Documented On 4 9:44AM ; [facility] History of systemic hypertension 024 Last Documented On 4 9:44AM ; [facility] Provides excellent relief 05/14/2023 Last Documented On 4 9:10AM ; [facility] Prior surgery 05/14/2023 Last Documented On 4 9:10AM ; [facility] Family History Includes: Family History addressed during [...] Active Last Documented On 4 9:12AM ; [facility] traMADol HCl Allergy 05/14/2023 Active Last Documented On 4 9:12AM ; [facility] Encounters Encounter Provider Location Date Check-In Time Check- Out Time Diagnosis FOLLOW UP URSULA JADE DO [facility] 4 9:09AM 9:45AM Assessment of Lower Back Pain Insurance Includes: Active Insurance Policies Plan Name Member ID Group # Subscriber Relationship Effect zheng Dates 1 - [facility] [id number] MICHAEL Amaya Clinical Notes Includes: Clinical Notes from this encounter * Progress note Date Encounter Last Documented by 06/08/2023 FOLLOW UP Last documented on 06/08/2023; 9:44 AM, Kimberley BRAUN; [facility] Active Problems & Conditions - M54.59 - Dorsopathy Low Back Pain Other Chief Complaint The Chief Complaint is: PRESENTS TODAY TO REVIEW MRI RESULTS ORDERED BY INFECTIOUS DISEASE DR FOR A BACK SURGERY DONE BY ANOTHER SURGEON ABOUT A MONTH AGO. PATIENT GAVE MRI DISC TO PROVIDER AT [facility] AND STATES HE WAS TOLD TO COME IN TODAY TO TALK ABOUT ITThe Chief Complaint is: Suture removal on back. Reason For Visit Visit for: Low Back Pain. Visit for: review of test results and Date of surgery: 05/02/2023. Michael returns today to [facility] concerning his L-spine problems. At his last visit here on 05/14/2023 I did remove his sutures from his most recent spine surgery. We did order an MRI but this was denied by insurance as one of his doctors at [facility] had also ordered an MRI. He did have surgery on 05/02/2023 that was done in [place]. He has a very complicated surgical history [...]
--- OUTSIDE RECORDS SUMMARY | 2024-08-03 12:24 | XMS_ITS | Encounter Summary ---
Author Organization [facility] Address [address] [place] [address] Care Team Providers Care Hydraulic Bull Riveter Operator Name Role Phone Lonnie Nazario MD Primary Care Provider + [phone] Encounter Details Date Type Department Care Team (Late st Contact Info) Description 04/22/2006 Outpatient Historical [facility] Internal Medicine Medical [place] [facility] [address] [address] [address] Arlin Quarles MD [address] [place] [address] [address] [place] [address] Social History Tobacco Use Types Packs/Day Years Used Date Smoking Tobacco: Never Assessed Sex and Gender Information Value Date Recorded Sex Assigned at Not on file Legal Sex Male 3:32 AM ETL ARCHITECT Gender Identity Not on file Sexual Orientation Not on file documented as of this encounter Last Filed Vital Signs Vital Sign Reading Time Taken Comments Blood Pressure 110/80 04/22/2006 3:15 PM ETL ARCHITECT Pulse 80 04/22/2006 3:15 PM ETL ARCHITECT Temperature - - Respiratory Rate - - Oxygen Saturation - - Inhaled Oxygen Concentration - - Weight 64.4 kg (142 lb) 04/22/2006 3:15 PM ETL ARCHITECT Height 182.9 cm (6') 04/22/2006 3:15 PM ETL ARCHITECT Body Mass Index 19.26 04/22/2006 3:15 PM ETL ARCHITECT documented in this encounter Plan of Treatment Not on file documented as of this encounter Visit Diagnoses Not on filedocumented in this encounter Care Teams Hydraulic Bull Riveter Operator Relationship Specialty Start Date End Date Lonnie Nazario MD [address] [facility] [address] [place] [address] PCP - General Internal Medicine 04/01/23 documented as of this encounter
--- OUTSIDE RECORDS SUMMARY | 2024-08-03 12:24 | XMS_ITS | Encounter Summary ---
Author Organization [facility] Address [address] [place] [address] Care Team Providers Care Headline Writer Name Role Phone Lonnie Nazario MD Primary Care Provider + [phone] Encounter Details Date Type Department Care Team (Late st Contact Info) Description 04/10/2006 Outpatient Historical [facility] Support Serv. (Adt Cardiology-[facility]) [address] 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
--- OUTSIDE RECORDS SUMMARY | 2024-08-03 12:24 | XMS_ITS | Clinical Summary ---
Author Organization [facility] Address [address] [place] [address] Care Team Providers Care High Reach Operator Name Role Phone AlejandraAudelia Timmy MEDICAL GENETICS DIRECTOR Primary Care Provider [phone]- [phone] Allergies Active Allergy Reactions Criticality Noted Date [...] and exercise. Coronary artery disease invo lving sleetmute coronary artery of sleetmute heart without angina pectoris 12/04/2020 Assessment & Plan (12/06/2020 4:13 PM CDT): He is currently not having angina. He had an ischemic evaluation earlier in the year with a cardiac catheterization that was unremarkable. Continue medical management of coronary artery disease with dual antiplatelet therapy, Aspirin, clopidogrel, rosuvastatin and metoprolol. 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 Not on file Not [...] Colonoscopy (10 Years) 1966 Annual Physical 1969 Hepatitis C 1984 DTaP, Tdap and Td Vaccines ( 1 - Tdap) 1985 Hepatitis B Vaccines (1 of 3 - 19+ 3-dose series) 1985 Pneumococcal Vaccine: 50+ Ye ars (1 of 2 - PCV) 1985 Zoster Vaccines (1 of 2) 2016 [...] this topic Insurance [employer] Member Subscriber Plan / Payer (Ef fective 2022-Present) Name:Michael Floyd Relation to Subscriber:Self Name:Michael Floyd Payer ID:Not on file Group ID:Not on file Type:Not on file Address: [address] Care Teams High Reach Operator Relationship Specialty Start Date End Date Audelia Roberts, MARISA [address] [place] [address] PCP - General Nurse Practitioner Family 12/15/23
--- OUTSIDE RECORDS SUMMARY | 2024-08-03 12:24 | XMS_ITS | Encounter Summary ---
Author Organization [facility] Address [address] [place] [address] Care Team Providers Care Help Desk Operator Name Role Phone Lonnie Nazario MD Primary Care Provider + [phone] Encounter Details Date Type Department Care Team (Late st Contact Info) Description 04/14/2006 Outpatient Historical [facility] Leeroy Noel MD [facility] [place], [place] [id number] Er, Authorized P NO ADDRESS ON FILE Unspecified Chest Pain (Primary Dx) Social History Tobacco Use Types Packs/Day Years Used Date Smoking Tobacco: Never Assessed Sex and Gender Information Value Date Recorded Sex Assigned at Not on file Legal Sex Male 3:32 AM PEDIATRIC HOSPITALIST Gender Identity Not on file Sexual Orientation Not on file documented as of this encounter Plan of Treatment Not on file documented as of this encounter Procedures Procedure Name Priority Date/Time Associated Diagnosis Comments TROPONIN (W/REFLEX CKMB/CK) Routine 04/14/2006 5:56 PM PEDIATRIC HOSPITALIST CBC WITH DIFFERENTIAL Routine 04/14/2006 5:56 PM PEDIATRIC HOSPITALIST CBC WITH DIFFERENTIAL Routine 04/14/2006 5:56 PM PEDIATRIC HOSPITALIST COMPREHENSIVE METABOLIC PANEL Routine 04/14/2006 5:56 PM PEDIATRIC HOSPITALIST documented in this encounter Results * TROPONIN (W/REFLEX CKMB/CK) (04/14/2006 5:56 PM PEDIATRIC HOSPITALIST) TROPONIN T 0.01 <=0.03 ng/mL INTERFACE SYSTEM TROPONIN T INTERP Negative INTERFACE SYSTEM 04/14/2006 5:56 PM PEDIATRIC HOSPITALIST Leeroy Noel MD CHEMISTRY ORDERABLES Edited Performing Organization Address [facility] de Phone Number INTERFACE SYSTEM Refer to clinic/hospital department * CBC WITH DIFFERENTIAL (04/14/2006 5:56 PM PEDIATRIC HOSPITALIST) NEUTROPHILS 60 45 - 70 % INTERFAC [...] 0.20 K/uL INTERFACE SYSTEM 04/14/2006 5:56 PM PEDIATRIC HOSPITALIST Leeroy Noel MD HEMATOLOGY ORDERABLES Edited Performing Organization Address [facility] Phone Number INTERFACE SYSTEM Refer to clinic/hospital department * (ABNORMAL) CBC WITH DIFFERENTIAL (04/14/2006 5:56 PM PEDIATRIC HOSPITALIST) WBC 5.7 4.0 - 9.8 K/uL INTERFACE [...] 12.4 fL INTERFACE SYSTEM 04/14/2006 5:56 PM PEDIATRIC HOSPITALIST us Leeroy Noel MD HEMATOLOGY ORDERABLES Edited Performing Organization Address City/[facility] Co de Phone Number INTERFACE SYSTEM Refer to clinic/hospital department * COMPREHENSIVE METABOLIC PANEL (04/14/2006 5:56 PM PEDIATRIC HOSPITALIST) GLUCOSE 83 65 - 99 mg/dL INTERFACE [...] and non- Americans is available on the [facility] Intranet at: [email or web address] Select: Lab Policies and Procedures Select: Reference Ranges - GFR 04/14/2006 5:56 PM PEDIATRIC HOSPITALIST us Leeroy Noel MD CHEMISTRY ORDERABLES Edited Performing Organization Address City/[facility] Co de Phone Number INTERFACE SYSTEM Refer to clinic/hospital department documented in this encounter Visit Diagnoses Diagnosis Chest pain, unspecified- Primary documented in this encounter Care Teams Help Desk Operator Relationship Specialty Start Date End Date Lonnie Nazario MD [address] [facility] [address] [place] [address] PCP - General Internal Medicine 04/01/23 documented as of this encounter
--- OUTSIDE RECORDS SUMMARY | 2024-08-03 12:24 | XMS_ITS | Clinical Summary ---
Author Organization [facility] Address [address] [place] [address] Care Team Providers Care Cable Assembler Name Role Phone Audelia Roberts NP Primary Care Provider [phone] Allergies Active Allergy Reactions Criticality Noted Date [...] tablet 3 1 Active cholecalciferol (VITAMIN D-3) 39963 unit capsule Take 1 capsule (10,000 Units total) by mouth daily Active rosuvastatin (CRESTOR) 20 mg tablet TAKE 1 TABLET(20 MG) BY MOUTH DAILY 90 tablet 3 4 Active ALPRAZolam (XANAX) 0.5 mg tablet Take by mouth 2 (two) times a day as needed 4 Active clopidogreL (PLAVIX) 75 mg tabletIndicatio ns: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 TAKE 1 [...] artery disease of n ative artery of tribe heart with stable angina pectoris 02/11/2017 History [...] Department Care Team Description 05/13/2024 3:15 PM BIOLOGY RESEARCH ASSISTANT Office Visit [facility] Cardiology [address] [place] [phone] Dominic Loera MD 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 (Primary Dx); [...] on file Legal Sex Male 8:12 AM BIOLOGY RESEARCH ASSISTANT Gender Identity Not on file Sexual Orientation Not on file Obstetrics History Last Filed Vital Signs Vital Sign Reading Time Taken Comments Blood Pressure 114/66 05/13/2024 3:08 PM BIOLOGY RESEARCH ASSISTANT Pulse 72 05/13/2024 3:08 PM BIOLOGY RESEARCH ASSISTANT Temperature 36.9 C (98.4 F) 09/04/2022 11:20 AM CDT Respiratory Rate 18 09/04/2022 11:2 0 AM CDT Oxygen Saturation 96% 05/13/2024 3:0 8 PM BIOLOGY RESEARCH ASSISTANT Inhaled Oxygen Concentration - - Weight 115.2 kg (254 lb) 05/13/2024 3:0 8 PM BIOLOGY RESEARCH ASSISTANT Wearing brace on left leg. Height 182.9 cm (6') 05/13/2024 3:08 PM BIOLOGY RESEARCH ASSISTANT Body Mass Index 34.45 05/13/2024 3:08 PM BIOLOGY RESEARCH ASSISTANT Plan of Treatment Health Maintenance Due Date Last Done Comments Colon Cancer Screening-Colonoscopy 1966 Depression Screening 1966 Hepatitis C Screening 1966 Prostate Cancer Screening-PSA 1966 DTaP/Tdap/Td Vaccine (1 - Tdap) 1977 Hepatitis B Screening 1984 Regular Well Visit/Exam 18-64 1984 Pneumococcal vaccine <65 (1 of 2 - PCV) 1985 Zoster Vaccine (1 of 2) 2016 Influenza Vaccine (Season Ended) 2024 Insurance [employer] [facility] Care Teams Cable Assembler Relationship Specialty Start Date End Date Audelia Roberts NP PCP - General Family Medicine 09/24/23
--- OUTSIDE RECORDS SUMMARY | 2024-08-03 12:24 | XMS_ITS | Encounter Summary ---
Author Organization [facility] Address [address] [place] [address] Care Team Providers Care Medical Oncologist Name Role Phone Lonnie Nazario MD Primary Care Provider + [phone] Encounter Details Date Type Department Care Team (Late st Contact Info) Description 04/10/2006 Inpatient Historical [facility] [place] [address] [place] [address] Noe Schwartz Other Chest Pain (Primary Dx) Social History Tobacco Use Types Packs/Day Years Used Date Smoking Tobacco: Never Assessed Sex and Gender Information Value Date Recorded Sex Assigned at Not on file Legal Sex Male 3:32 AM SMOOTH STUCCO RESURFACER Gender Identity Not on file Sexual Orientation Not on file documented as of this encounter Plan of Treatment Not on file documented as of this encounter Procedures Procedure Name Priority Date/Time Associated Diagnosis Comments LIPID PANEL Routine 04/11/2006 6:01 AM SMOOTH STUCCO RESURFACER TROPONIN (W/REFLEX CKMB/CK) Routine 04/11/2006 12:45 AM SMOOTH STUCCO RESURFACER TROPONIN (W/REFLEX CKMB/CK) Routine 04/10/2006 4:45 PM SMOOTH STUCCO RESURFACER ED HOLD Routine 04/10/2006 4:45 PM SMOOTH STUCCO RESURFACER CBC WITH DIFFERENTIAL Routine 04/10/2006 4:45 PM SMOOTH STUCCO RESURFACER CBC WITH DIFFERENTIAL Routine 04/10/2006 4:45 PM SMOOTH STUCCO RESURFACER documented in this encounter Results * (ABNORMAL) LIPID PANEL (04/11/2006 6:01 AM SMOOTH STUCCO RESURFACER) CHOLESTEROL 177 100 - 199 mg/dL INTERFACE SYSTEM TRIGLYCERIDE 166(H) 10 - 149 mg/dL INTERFACE SYSTEM HDL 49 40 - 59 mg/dL INTERFACE SYSTEM CHOL/HDL RATIO 3.6 2.0 - 5.0 INTER FACE SYSTEM LDL CALCULATED 95 <=99 mg/dL INTERFACE SYSTEM LIPID PANEL COMMENT See Below INTERFACE SYSTEM Comment: The adult ATP and pediatric NCEP classifications for lipids are available on the [facility] Intranet at: [email or web address] [email or web address] Select: Lab Policies and Procedures Select: Reference Ranges - Lipids 04/11/2006 6:01 AM SMOOTH STUCCO RESURFACER Tate Portillo MD CHEMISTRY ORDERABLES Final Resul t Performing Organization Address City/[facility] de Phone Number INTERFACE SYSTEM Refer to clinic/hospital department * TROPONIN (W/REFLEX CKMB/CK) (04/11/2006 12:45 AM SMOOTH STUCCO RESURFACER) TROPONIN T <0.01 <=0.03 ng/mL INTERFACE SYSTEM TROPONIN T INTERP Negative INTERFACE SYSTEM 04/11/2006 12:4 5 AM SMOOTH STUCCO RESURFACER Noe Schwartz CHEMISTRY ORDERABLES Final Re sult Performing Organization Address [facility] Co de Phone Number INTERFACE SYSTEM Refer to clinic/hospital department * ED HOLD (04/10/2006 4:45 PM SMOOTH STUCCO RESURFACER) SPECIMEN HOLD, BLOOD 7 days INTERFACE SYSTEM 04/10/2006 4:45 PM SMOOTH STUCCO RESURFACER Historical Provider CHEMISTRY ORDERABLES Final R esult Performing Organization Address [facility] Co de Phone Number INTERFACE SYSTEM Refer to clinic/hospital department * CBC WITH DIFFERENTIAL (04/10/2006 4:45 PM SMOOTH STUCCO RESURFACER) NEUTROPHILS 61 45 - 70 % INTERFAC [...] 0.20 K/uL INTERFACE SYSTEM 04/10/2006 4:45 PM SMOOTH STUCCO RESURFACER Historical Provider HEMATOLOGY ORDERABLES Final Result Performing Organization Address City/[facility] Phone Number INTERFACE SYSTEM Refer to clinic/hospital department * (ABNORMAL) CBC WITH DIFFERENTIAL (04/10/2006 4:45 PM SMOOTH STUCCO RESURFACER) HEMATOCRIT 46.5 40.0 - 48.0 % INTERFACE [...] 12.4 fL INTERFACE SYSTEM 04/10/2006 4:45 PM SMOOTH STUCCO RESURFACER [facility] Provider HEMATOLOGY ORDERABLES Final Result Performing Organization Address [facility] Phone Number INTERFACE SYSTEM Refer to clinic/hospital department * TROPONIN (W/REFLEX CKMB/CK) (04/10/2006 4:45 PM SMOOTH STUCCO RESURFACER) TROPONIN T <0.01 <=0.03 ng/mL INTERFACE SYSTEM TROPONIN T INTERP Negative INTERFACE SYSTEM 04/10/2006 4:45 PM SMOOTH STUCCO RESURFACER us Historical Provider CHEMISTRY ORDERABLES Final R esult INTERFACE SYSTEM Refer to clinic/hospital department documented in this encounter Visit Diagnoses Diagnosis Other chest pain- Primary documented in this encounter Care Teams Medical Oncologist Relationship Specialty Start Date End Date Lonnie Nazario MD [address] [place] [phone] PCP - General Internal Medicine 04/01/23 documented as of this encounter
--- OUTSIDE RECORDS SUMMARY | 2024-08-03 12:24 | XMS_ITS | Encounter Summary ---
Author Organization [employer] Address [address] [place] [address] Care Team Providers Care Apparel Machinery Instructor Name Role Phone Lonnie Nazario MD Primary Care Provider + [phone] Encounter Details Date Type Department Care Team (Late st Contact Info) Description 04/17/2006 Outpatient Historical [facility] Tate De La Rosa Jr., MD [facility] [place], [place] [id number] Er, Authorized P NO ADDRESS ON FILE Other Chronic Pain (Primary Dx) Social History Tobacco Use Types Packs/Day Years Used Date Smoking Tobacco: Never Assessed Sex and Gender Information Value Date Recorded Sex Assigned at Not on file Legal Sex Male 3:32 AM PLASMA CENTER NURSE Gender Identity Not on file Sexual Orientation Not on file documented as of this encounter Plan of Treatment Not on file documented as of this encounter Procedures Procedure Name Priority Date/Time Associated Diagnosis Comments TROPONIN (W/REFLEX CKMB/CK) Routine 04/17/2006 4:12 PM PLASMA CENTER NURSE ED HOLD Routine 04/17/2006 4:11 PM PLASMA CENTER NURSE documented in this encounter Results * TROPONIN (W/REFLEX CKMB/CK) (04/17/2006 4:12 PM PLASMA CENTER NURSE) TROPONIN T <0.01 <=0.03 ng/mL INTERFACE SYSTEM TROPONIN T INTERP Negative INTERFACE SYSTEM 04/17/2006 4:12 PM PLASMA CENTER NURSE us Tate Ornelas Jr., MD CHEMISTRY ORDERABLES Edite d Performing Organization Address City/[facility] Co de Phone Number INTERFACE SYSTEM Refer to clinic/hospital department * ED HOLD (04/17/2006 4:11 PM PLASMA CENTER NURSE) SPECIMEN HOLD, BLOOD 7 days INTERFACE SYSTEM 04/17/2006 4:11 PM PLASMA CENTER NURSE us Tate Ornelas Jr., MD CHEMISTRY ORDERABLES Edite d Performing Organization Address [facility] de Phone Number INTERFACE SYSTEM Refer to clinic/hospital department documented in this encounter Visit Diagnoses Diagnosis Other chronic pain- Primary documented in this encounter Care Teams Apparel Machinery Instructor Relationship Specialty Start Date End Date Lonnie Nazario MD [address] [place] [phone] PCP - General Internal Medicine 04/01/23 documented as of this encounter
--- OUTSIDE RECORDS SUMMARY | 2024-08-03 12:24 | XMS_ITS | Encounter Summary ---
Author Organization [facility] Address [address] [place] [address] Care Team Providers Care Digital Media Buyer Name Role Phone Lonnie Nazario MD Primary Care Provider + [phone] Encounter Details Date Type Department Care Team (Late st Contact Info) Description 04/22/2006 Orders Only [facility] Internal Medicine Medical Dexter A [facility] [address] [facility] [address] [address] Arlin Quarles MD [address] [place] [address] [address] [place] [phone] Social History Tobacco Use Types Packs/Day Years Used Date Smoking Tobacco: Never Assessed Sex and Gender Information Value Date Recorded Sex Assigned at Not on file Legal Sex Male 3:32 AM PAIN MANAGEMENT NURSE PRACTITIONER Gender Identity Not on file Sexual Orientation [...] NEW PRESCRIPTION, 04/22/2006. LAB ORDERS: Order number: [id number] Test Ordered: XRAY HUMERUS LEFT Order number: [id number] Test Ordered: XRAY SHOULDER LEFT Order number: [id number] Test Ordered: NCV/EMG UPPER EXTREMITY LEFT 793.1-ABNORMAL [...] on filedocumented in this encounter Care Teams Digital Media Buyer Relationship Specialty Start Date End Date Lonnie Nazario MD [address] [place] [phone] PCP - General Internal Medicine 04/01/23 documented as of this encounter
--- OUTSIDE RECORDS SUMMARY | 2024-08-03 12:24 | XMS_ITS | Encounter Summary ---
Author Organization [email or web address] Address [address] [place] [address] Care Team Providers Care Patient Admitting Clerk Name Role Phone Lonnie Nazario MD Primary Care Provider + [phone] Encounter Details Date Type Department Care Team (Late st Contact Info) Description 04/11/2006 Outpatient Historical [facility] Support Serv. (Adt Cardiology-[facility]) [address] [place] [phone] Chirag Reddy MD Social History Tobacco Use Types Packs/Day Years Used Date Smoking Tobacco: Never Assessed Sex and Gender Information Value Date Recorded Sex Assigned at Not on file Legal Sex Male 3:32 AM TALENT ACQUISITION MANAGER Gender Identity Not on file Sexual Orientation Not on file documented as of this encounter Plan of Treatment Not on file documented as of this encounter Visit Diagnoses Not on filedocumented in this encounter Care Teams Patient Admitting Clerk Relationship Specialty Start Date End Date Lonnie Nazario MD [address] [place] [address] PCP - General Internal Medicine 04/01/23 documented as of this encounter
--- OUTSIDE RECORDS SUMMARY | 2024-08-03 12:24 | XMS_ITS | Encounter Summary ---
Author Organization [facility] Address [address] [place] [address] Care Team Providers Care Manager Pe Name Role Phone Lonnie Nazario MD Primary Care Provider + [phone] Encounter Details Date Type Department Care Team (Late st Contact Info) Description 04/11/2006 Outpatient Historical [facility] [address] [place] [address] Tate Portillo MD NO ADDRESS ON FILE Social History Tobacco Use Types Packs/Day Years Used Date Smoking Tobacco: Never Assessed Sex and Gender Information Value Date Recorded Sex Assigned at Not on file Legal Sex Male 3:32 AM SAP PAYROLL CONSULTANT Gender Identity Not on file Sexual Orientation Not on file documented as of this encounter Plan of Treatment Not on file documented as of this encounter Visit Diagnoses Not on filedocumented in this encounter Care Teams Manager Pe Relationship Specialty Start Date End Date Lonnie Nazario MD [address] [place] [phone] PCP - General Internal Medicine 04/01/23 documented as of this encounter
--- OUTSIDE RECORDS SUMMARY | 2024-08-03 12:25 | XMS_ITS | Encounter Summary ---
Author Organization [facility] Address [address] [place] [address] Care Team Providers Care String Winding Machine Operator Name Role Phone Lonnie Nazario MD Primary Care Provider + [phone] Encounter Details Date Type Department Care Team (Late st Contact Info) Description 04/07/2007 Outpatient Historical [facility] Er, Authorized P NO ADDRESS ON FILE BrucepaTate dalton Jr., [place] [address] Social History Tobacco Use Types Packs/Day Years Used Date Smoking Tobacco: Never Assessed Sex and Gender Information Value Date Recorded Sex Assigned at Not on file Legal Sex Male 3:32 AM UTILITY ACCOUNTS DIRECTOR Gender Identity Not on file Sexual Orientation Not on file documented as of this encounter Plan of Treatment Not on file documented as of this encounter Visit Diagnoses Not on filedocumented in this encounter Care Teams String Winding Machine Operator Relationship Specialty Start Date End Date Lonnie Nazario MD [address] [place] [phone] PCP - General Internal Medicine 04/01/23 documented as of this encounter
--- OUTSIDE RECORDS SUMMARY | 2024-08-03 12:25 | XMS_ITS | Encounter Summary ---
Author Organization [facility] Address [address] [place] [address] Care Team Providers Care Hospice/Home Health Aide Name Role Phone Lonnie Nazario MD Primary Care Provider + [phone] Encounter Details Date Type Department Care Team (Latest Contact Info) Description 05/06/[address] [facility] Arlin Quarles MD [address] [place] [address] Pain in Soft Tissues of Limb (Primary Dx) Social History Tobacco Use Types Packs/Day Years Used Date Smoking Tobacco: Never Assessed Sex and Gender Information Value Date Recorded Sex Assigned at Not on file Legal Sex Male 3:32 AM PROGRAM PLANNER Gender Identity Not on file Sexual Orientation Not on file documented as of this encounter Plan of Treatment Not on file documented as of this encounter Visit Diagnoses Diagnosis Pain in limb- Primary documented in this encounter Care Teams Hospice/Home Health Aide Relationship Specialty Start Date End Date Lonnie Nazario MD [address] [place] [phone] PCP - General Internal Medicine 04/01/23 documented as of this encounter
--- OUTSIDE RECORDS SUMMARY | 2024-08-03 12:25 | XMS_ITS | Clinical Summary ---
Author Organization [facility] Address [address] [place] [address] Phone Care Team Providers Care Portrait Photographer Name Role Phone Unavailable Unavailable Unavailable Reason for Visit and Chief Complaint Date of surgery: 05/02/2023, Michael is here today now post op from 05/02/2023. His surgery was done in [place]. He has a very complicated surgical history over the last month or two, having had at least two different surgeons work on his L- spine. He contacted me at [facility] inquiring about the sutures he has [...] Status Dorsopathy Low Back Pain Other 05/14/2023 URSUAL JADE DO Active Last Documented On 4 9:21AM ; [facility] Plan of Treatment I discussed with Michael [...] - Last Documented On 05/14/2023 9:21AM ; [facility] Instructions to patient Reduced physical activity Last Documented On 4 9:19AM ; [facility] Watch for signs/symptoms of infection Last Documented On 4 9:19AM ; [facility] Education and Decision Aids were provided during visit for: Patient education about orth opedic activities Last Documented On 4 9:19AM ; [facility] Assessments Includes: Assessments from this encounter No Assessments Recorded Instructions Includes: Instructions from this encounter Instructions to patient Reduced physical activity Last Documented On 4 9:19AM ; [facility] Watch for signs/symptoms of infection Last Documented On 4 9:19AM ; [facility] Education and Decision Aids were provided during visit for: Patient education about orth opedic activities Last Documented On 4 9:19AM ; [facility] Medical Equipment - Implanted Devices Includes: Current Devices No Medical Equipment Recorded Medications Includes: Medications discussed during this encounter and other current Medications Discontinued / Stopped on this date on 05/14/2023 GNP Vitamin C 1000 MG Oral Tablet Provide r: Diagnosis: Last Documented On 05/14/2023 9:09AM By FREDIS ROSENTHAL LPN ; [facility] Current Medications (continue as prescribed) Ondansetron HCl 4 MG Oral Tablet 08/01/2023 Provider : URSULA JADE DO Diagnosis: Other low back p ain 1 every 6 hours as needed Last Documented On 08/01/2023 12:04PM By Ursula Jade DO ; [facility] oxyCODONE-Acetaminophen 5-32 5 MG Oral Tablet 08/01/2023 Provider: URSULA JADE DO Diagnosis: Discitis, unspec ified, lumbosacral region 1 every 6 hours as needed Last Documented On 08/01/2023 11:49AM By Ursula Jade DO ; [facility] traMADol HCl 50 MG Oral Tablet 06/27/2023 Provider: URSULA JADE DO Diagnosis: Discitis, unspec ified, lumbar region Take one four times a day as needed Last Documented On 06/27/2023 8:49PM By Ursula Jade DO ; [facility] Daily Probiotic Oral Capsule 05/14/2023 Provider: Diagnosis: Last Documented On 05/14/2023 9:06AM By FREDIS ROSENTHAL LPN ; [facility] Vitamin C 1000 MG Oral Tablet 05/14/2023 Provider: Diagnosis: 2000mg daily Last Documented On 05/14/2023 9:10AM By FREDIS ROSENTHAL LPN ; [facility] SB Low Dose ASA EC 81 MG Oral Tablet Delayed Release 0 05/14/2023 Provider: Diagnosis: Last Documented On 05/14/2023 9:06AM By FREDIS ROSENTHAL LPN ; [facility] ALPRAZolam 0.5 MG Oral Tablet 05/14/2023 Provider: Diagnosis: Last Documented On 05/14/2023 9:05AM By FREDIS ROSENTHAL LPN ; [facility] Metoprolol Succinate ER 25 M G Oral Tablet Extended Release 24 Hour 05/14/2023 Provider: Diagnosis: Last Documented On 05/14/2023 9:04AM By FREDIS ROSENTHAL LPN ; [facility] Rosuvastatin Calcium 20 MG Oral Tablet 05/14/2023 Pr ovider: Diagnosis: Last Documented On 05/14/2023 9:04AM By FREDIS ROSENTHAL LPN ; [facility] Clopidogrel Bisulfate 75 MG Oral Tablet 05/14/2023 P rovider: Diagnosis: Last Documented On 05/14/2023 9:04AM By FREDIS ROSENTHAL LPN ; [facility] Medications Administered Includes: Administered Medications from this encounter No Administered Medications Recorded Vital Signs Includes: Vital Signs from this encounter Vital Name 05/14/2023 09:02A Blood Pressure Sitting (mmHg) 150/82 Pulse Rate-Sitting (bpm) 81 Height (in) 72 Weight (lb) 243 Body Mass Index 33 Body Surface Area 2.3 Last Documented: On 05/14/2023 9:11AM ; [facility] Results Includes: Results discussed during this encounter No Results Recorded For Specified Dates History of Present Illness Includes: History of Present Illness from this encounter NICK WASHINGTON is a 57 year old male. - Allergy list reviewed - Medication list reviewed Social History Description Last Updated Tobacco non-user 05/14/2023 Last Documented On 4 9:21AM ; [facility] Smoking Status Unknown Procedures and Surgical History Includes: Procedures from this encounter Procedures Code Diagnosis Performing Provider Service L ocation Service Date watch for signs/symptoms of infection Last Documented On 4 9:19AM ; [facility] Discussed benefits, risks and alternativ es to treatment Last Documented On 4 9:19AM ; [facility] use of tobacco assessment performed 1000F Last Documented On 4 9:11AM ; [facility] review of medications documented 1160F Last Documented On 4 9:11AM ; [facility] Medical History Includes: Medical History addressed during this encounter Description Last Updated Provides excellent relief 05/14/2023 Last Documented On 4 9:21AM ; [facility] Prior surgery 05/14/2023 Last Documented On 4 9:21AM ; [facility] Family History Includes: Family History addressed [...] Active Last Documented On 4 9:12AM ; [facility] traMADol HCl Allergy 05/14/2023 Active Last Documented On 4 9:12AM ; [facility] Encounters Encounter Provider Location Date Check-In Time Check- Out Time Diagnosis ORTHO NEW PATIENT URSULA JADE DO [facility] 4 8:56AM 9:23AM Insurance Includes: Active Insurance Policies Plan Name Member ID Group # Subscriber Relationship Effect zheng Dates 1 - [facility] [id number] MICHAEL WASHINGTON Self Clinical Notes Includes: Clinical Notes from this encounter * Progress note Date Encounter Last Documented by 05/14/2023 ORTHO NEW PATIENT Last documente d on 05/14/2023; 9:21 AM, Kimberley BRAUN; [facility] Active Problems & Conditions - M54.59 - Dorsopathy Low Back Pain Other Chief Complaint The Chief Complaint is: Suture removal on back. Reason For Visit Visit for: Low Back Pain. Date of surgery: 05/02/2023. Michael is here today now post op from 05/02/2023. His surgery was done in [place]. He has a very complicated surgical history over the last month or two, having had at least two different surgeons work on his L-spine. He contacted me at [facility] inquiring about the sutures he has [...]
--- OUTSIDE RECORDS SUMMARY | 2024-08-03 12:25 | XMS_ITS | Encounter Summary ---
Author Organization [facility] Address [address] [place] [address] Care Team Providers Care Activity Therapist Name Role Phone Lonnie Nazario MD Primary Care Provider + [phone] Encounter Details Date Type Department Care Team (Late st Contact Info) Description 03/23/2007 Outpatient Historical [facility] [place], Authorized P NO ADDRESS ON FILE Michael Davies DO [address] [place] [address] Social History Tobacco Use Types Packs/Day Years Used Date Smoking Tobacco: Never Assessed Sex and Gender Information Value Date Recorded Sex Assigned at Not on file Legal Sex Male 3:32 AM SAND WORKER Gender Identity Not on file Sexual Orientation Not on file documented as of this encounter Plan of Treatment Not on file documented as of this encounter Procedures Procedure Name Priority Date/Time Associated Diagnosis Comments CBC WITH DIFFERENTIAL Routine 03/23/2007 7:08 PM SAND WORKER CBC WITH DIFFERENTIAL Routine 03/23/2007 7:08 PM SAND WORKER D-DIMER Routine 03/23/2007 7:08 PM SAND WORKER C-REACTIVE PROTEIN Routine 03/23/2007 7: 08 PM SAND WORKER TROPONIN Routine 03/23/2007 7:08 PM SAND WORKER COMPREHENSIVE METABOLIC PANEL Routine 03/23/2007 7:08 PM SAND WORKER documented in this encounter Results * TROPONIN (03/23/2007 7:08 PM SAND WORKER) Pathologist [facility] TROPONIN T 0.01 <=0.03 ng/mL INTERFACE SYSTEM TROPONIN T INTERP Negative INTERFACE SYSTEM 03/23/2007 7:08 PM SAND WORKER Michael Davies DO CHEMISTRY ORDERABLES Edited Performing Organization Address City/[facility] de Phone Number INTERFACE SYSTEM Refer to clinic/hospital department * CBC WITH DIFFERENTIAL (03/23/2007 7:08 PM SAND WORKER) Pathologist [facility] NEUTROPHILS 59 45 - 70 % INTERFAC [...] 0.20 K/uL INTERFACE SYSTEM 03/23/2007 7:08 PM SAND WORKER Michael Davies DO HEMATOLOGY ORDERABLES Edited Performing Organization Address [facility] de Phone Number INTERFACE SYSTEM Refer to clinic/hospital department * (ABNORMAL) CBC WITH DIFFERENTIAL (03/23/2007 7:08 PM SAND WORKER) Pathologist [facility] WBC 6.8 4.0 - 9.8 K/uL INTERFACE [...] 12.4 fL INTERFACE SYSTEM 03/23/2007 7:08 PM SAND WORKER Michael Davies DO HEMATOLOGY ORDERABLES Edited Performing Organization Address [facility] Phone Number INTERFACE SYSTEM Refer to clinic/hospital department * D-DIMER (03/23/2007 7:08 PM SAND WORKER) D-DIMER QUANT <0.22 <=0.42 ug/mL FEU INTERFACE [...] examination, including risk stratification. 03/23/2007 7:08 PM SAND WORKER Michael Davies DO HEMATOLOGY ORDERABLES Edited Performing Organization Address [facility] Phone Number INTERFACE SYSTEM Refer to clinic/hospital department * C-REACTIVE PROTEIN (03/23/2007 7:08 PM SAND WORKER) Pathologist [facility] CRP 0.4 0.0 - 0.8 mg/dL INTERFACE SYSTEM 03/23/2007 7:08 PM SAND WORKER Michael Davies DO CHEMISTRY ORDERABLES Edited Performing Organization Address [facility] Phone Number INTERFACE SYSTEM Refer to clinic/hospital department * (ABNORMAL) COMPREHENSIVE METABOLIC PANEL (03/23/2007 7:08 PM SAND WORKER) GLUCOSE 87 65 - 99 mg/dL INTERFACE [...] non- Americans is available on the [facility] Intranet at: [email or web address] Select: Lab Policies and Procedures Select: Reference Ranges - GFR 03/23/2007 7:08 PM SAND WORKER Michael Davies DO CHEMISTRY ORDERABLES Edited INTERFACE SYSTEM Refer to clinic/hospital department documented in this encounter Visit Diagnoses Not on filedocumented in this encounter Care Teams Activity Therapist Relationship Specialty Start Date End Date Lonnie Nazario MD [address] [place] [address] PCP - General Internal Medicine 04/01/23 documented as of this encounter
--- OUTSIDE RECORDS SUMMARY | 2024-08-03 12:25 | XMS_ITS | Encounter Summary ---
Author Organization [facility] Address [address] [place] [address] Care Team Providers Care Manager Drilling Name Role Phone Brian Benedict MD Primary Care Provide r Brian Benedict MD Primary Care Provide r Dre Payton MD Primary Care Provider [phone] Lonnie Nazario MD Primary Care Provide r Audelia Roberts NP Primary Care Provider [phone] Encounter Details Date Type Department Care Team (Late st Contact Info) Description 04/24/2016 Orders Only [facility] ProviderOlvin MD [address] [place] [address] Social History Tobacco Use Types Packs/Day Years Used Date Smoking Tobacco: Every Day Comments:Smoking History Pac ks/day: 10 Packs Alcohol Use Standard Drinks/Week Comments No 0 (1 standard drink = 0.6 oz pur e alcohol) Sex and Gender Information Value Date Recorded Sex Assigned at Not on file Legal Sex Male 8:12 AM WEBSPHERE ARCHITECT Gender Identity Not on file Sexual [...] COVID: Suspected 05/15/2022 05/15/2022 05/15/2022 11:49 AM WEBSPHERE ARCHITECT COVID: Suspected 05/15/2022 05/15/2022 05/15/2022 8:54 PM WEBSPHERE ARCHITECT COVID: Suspected 09/04/2022 09/04/2022 09/04/2022 12:48 PM CDT documented as of this encounter Care Teams Manager Drilling Relationship Specialty Start Date End Date Brian Benedict MD [address] [place] [address] PCP - General 07/11/16 02/10/17 Brian Benedict MD [address] [place] [address] PCP - General 10/02/11 07/10/16 Dre Payton MD [address] [place] [address] PCP - General Family Medicine 02/11/17 09/30/22 Lonnie Nazario MD [address] [place] [address] PCP - General Emergency Medicine 10/01/22 09/23/23 Audelia Roberts, SHINGLE CARRIER [address] [place] [address] PCP - General Family Medicine 09/24/23 documented as of this encounter
--- OUTSIDE RECORDS SUMMARY | 2024-08-03 12:25 | XMS_ITS | Encounter Summary ---
Author Organization [facility] Address [address] [place] [address] Care Team Providers Care Drama Therapist Name Role Phone Lonnie Nazario MD Primary Care Provide r Audelia Roberts APPIAN BPM DEVELOPER Primary Care Provider [phone] Encounter Details Date Type Department Care Team (Late st Contact Info) Description 08/03/2023 Orders Only [facility] [address] [place] [address] Scanning, Provider Social History Tobacco Use Types Packs/Day Years Used Date Smoking Tobacco: Former Cigarettes Q uit: 05/14/2012 Smokeless Tobacco: Never Comments:Vapes Alcohol Use Standard Drinks/Week Comments No 0 (1 standard drink = 0.6 oz pur e alcohol) Sex and Gender Information Value Date Recorded Sex Assigned at Not on file Legal Sex Male 8:12 AM OVEN WORKER Gender Identity Not on file Sexual [...] on filedocumented in this encounter Care Teams Drama Therapist Relationship Specialty Start Date End Date Lonnie Nazario MD [address] [place] [address] PCP - General Emergency Medicine 10/01/22 09/23/23 Audelia Roberts, MARISA [address] [place] [address] PCP - General Family Medicine 09/24/23 documented as of this encounter
--- OUTSIDE RECORDS SUMMARY | 2024-08-03 12:25 | XMS_ITS | Encounter Summary ---
Author Organization [facility] Address [address] [place] [address] Care Team Providers Care Checker In Name Role Phone Lonnie Nazario MD Primary Care Provider + [phone] Encounter Details Date Type Department Care Team (Late st Contact Info) Description 06/07/2006 Outpatient Historical [facility] Arlin Quarles MD [address] [place] [phone] Social History Tobacco Use Types Packs/Day Years Used Date Smoking Tobacco: Never Assessed Sex and Gender Information Value Date Recorded Sex Assigned at Not on file Legal Sex Male 3:32 AM AMBULATORY TECHNOLOGIST Gender Identity Not on file Sexual Orientation Not on file documented as of this encounter Plan of Treatment Not on file documented as of this encounter Visit Diagnoses Not on filedocumented in this encounter Care Teams Checker In Relationship Specialty Start Date End Date Lonnie Nazario MD [address] [place] [id number] PCP - General Internal Medicine 04/01/23 documented as of this encounter
--- OUTSIDE RECORDS SUMMARY | 2024-08-03 12:25 | XMS_ITS | Encounter Summary ---
Author Organization [facility] Address [address] [place] [address] Care Team Providers Care Partner Cco Name Role Phone Audelia Roberts APRN-GOLF COURSE LABORER Primary Care Provid er Debby Orellana PA-C Unavailable [phone] Reason for Visit * Reason Onset Date Comments Follow-up 09/29/2023 See note Encounter Details Date Type Department Care Team (Late st Contact Info) Description 09/29/2023 Telephone [facility] - Infectious Disease [address] [place] [phone] Debby Orellana PA-C [address] [place] [address] Follow-up (See note ) Social History Tobacco [...] Recorded Patient Health Questionnaire-2 Score 0 09/22/2023 [facility] - Occupational Stress [...] money to buy more. Never true 08/31/19 24 Within the past 12 months, t he [...] place to sleep or slept in a custodial (including now)? No 08/31/2023 Sex and Gender Information Value Date Recorded Sex Assigned at Not on file Legal Sex Male 5:53 AM ORCHESTRA DIRECTOR Gender Identity Not on file Sexual Orientation Not on file documented as of this encounter Functional Status * Is person deaf or have serious hearing difficulty? Answer Date of Assessment Author No 08/31/2023 5:41 PM Golden Yanez RN * Is person blind or have serious difficulty seeing? Answer Date of Assessment Author No 08/31/2023 5:41 PM Golden Yanez, RN * Does person have serious difficulty walking/climbing stairs? Answer Date of Assessment Author No 08/31/2023 5:41 PM Golden Yanez, RN * Does person have difficulty dressing/bathing? Answer Date of Assessment Author No 08/31/2023 5:41 PM CDT Golden Enciso RN * Does person have difficulty doing errands alone? Answer Date of Assessment Author No 08/31/2023 5:41 PM KAYLAT Golden Enciso RN documented as of this encounter Mental Status * Does person have difficulty concentrating/remembering/making decisions? Answer Entry Date Author No 08/31/2023 5:41 PM KAYLAT Golden Enciso RN documented in this encounter Miscellaneous Notes * Telephone Encounter [...] 09/26 at 0900 he declined going to tenriism due to pain and laid down in [...] Description 09/13/2024 10:15 AM CDT Office Visit [facility] - Orthopedics [address] [place] [address], [place] [address] Brenden Bills MD [address] [place] [phone] documented as of this encounter Visit Diagnoses Not on filedocumented in this encounter Care Teams Partner Cco Relationship Specialty Start Date End Date Audelia Roberts, WOOL FLEECE SORTER-GOLF COURSE LABORER [address] [place] [address] PCP - General Nurse Practitioner 08/19/23 Debby Orellana PA-C [address] [place] [address] Physician Technical Maintenance Technician Infectious Disease 09/22/23 documented as of this encounter
--- OUTSIDE RECORDS SUMMARY | 2024-08-03 12:25 | XMS_ITS ---
Care Plan - [facility] Created on: August 03, 2024 NACHO WASHINGTON : 1965 Sex: Male Author Organization [facility] Address [address] [place] [address] Phone Care Team Providers Care Securities Adviser Name Role Phone Unavailable Unavailable Unavailable
--- OUTSIDE RECORDS SUMMARY | 2024-08-03 12:25 | XMS_ITS | Encounter Summary ---
Author Organization [email or web address] Address [address] [place] [address] Care Team Providers Care Rvda Master Certified Rv Technician Name Role Phone Lonnie Nazario MD Primary Care Provider + [phone] Encounter Details Date Type Department Care Team (Latest Contact Info) Description 06/24/2006 Outpatient Historical [facility] [place] [address] [address] Urinary Tract Infection, Site not Specified (Primary Dx) Social History Tobacco Use Types Packs/Day Years Used Date Smoking Tobacco: Never Assessed Sex and Gender Information Value Date Recorded Sex Assigned at Not on file Legal Sex Male 3:32 AM STAFF DEVELOPMENT COORDINATOR RN Gender Identity Not on file Sexual Orientation Not on file documented as of this encounter Plan of Treatment Not on file documented as of this encounter Visit Diagnoses Diagnosis Urinary tract infection, site not specified- Primary documented in this encounter Care Teams Rvda Master Certified Rv Technician Relationship Specialty Start Date End Date Lonnie Nazario MD [address] [place] [address] PCP - General Internal Medicine 04/01/23 documented as of this encounter
--- OUTSIDE RECORDS SUMMARY | 2024-08-03 12:25 | XMS_ITS | Encounter Summary ---
Author Organization [facility] Address [address] [place] [address] Care Team Providers Care Hat Designer Name Role Phone Lonnie Nazario MD Primary Care Provider + [phone] Encounter Details Date Type Department Care Team (Late st Contact Info) Description 04/27/2006 Outpatient Historical [facility] [address] [place] [address] [place] [address] Garrick Sheehan MD [address] [place] [address] Social History Tobacco Use Types Packs/Day Years Used Date Smoking Tobacco: Never Assessed Sex and Gender Information Value Date Recorded Sex Assigned at Not on file Legal Sex Male 3:32 AM SALES PLANNING MANAGER Gender Identity Not on file Sexual Orientation Not on file documented as of this encounter Plan of Treatment Not on file documented as of this encounter Visit Diagnoses Not on filedocumented in this encounter Care Teams Hat Designer Relationship Specialty Start Date End Date Lonnie Nazario MD [address] [place] [address] PCP - General Internal Medicine 04/01/23 documented as of this encounter
--- OUTSIDE RECORDS SUMMARY | 2024-08-03 12:25 | XMS_ITS | Encounter Summary ---
Author Organization [facility] Address [address] [place] [address] Care Team Providers Care Vise Hand Name Role Phone Lonnie Nazario MD Primary Care Provider + [phone] Encounter Details Date Type Department Care Team (Late st Contact Info) Description 04/22/2007 Outpatient Historical [facility] Tito Rapp MD [address] [address] Other Syndromes Affecting Cervical Region; Benign Neoplasm of Nasopharynx Social History Tobacco Use Types Packs/Day Years Used Date Smoking Tobacco: Never Assessed Sex and Gender Information Value Date Recorded Sex Assigned at Not on file Legal Sex Male 3:32 AM LICENSED MIDWIFE Gender Identity Not on file Sexual Orientation Not on file documented as of this encounter Plan of Treatment Not on file documented as of this encounter Visit Diagnoses Diagnosis Other syndromes affecting cervical region Benign neoplasm of nasopharynx documented in this encounter Care Teams Vise Hand Relationship Specialty Start Date End Date Lonnie Nazario MD [address] [place] [address] PCP - General Internal Medicine 04/01/23 documented as of this encounter
--- OUTSIDE RECORDS SUMMARY | 2024-08-03 12:25 | XMS_ITS | Encounter Summary ---
Author Organization [facility] Address [address] [place] [address] Care Team Providers Care Bulk Truck Driver Name Role Phone Lonnie Nazario MD Primary Care Provider + [phone] Encounter Details Date Type Department Care Team (Latest Contact Info) Description 08/04/2006 Outpatient Historical [facility] Juan Alberto MD [address] 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0 - 48.0 % INTERFACE SYSTEM 07/31/2006 9:58 AM CDT us Juan Alberto MD HEMATOLOGY ORDERABLES Edited Performing Organization Address [facility] de Phone Number INTERFACE SYSTEM Refer to [...] and non- Americans is available on the [facility] Intranet at: [email or web address] Select: Lab Policies and Procedures Select: Reference Ranges - GFR 07/31/2006 9:58 AM CDT Juan Alberto MD CHEMISTRY ORDERABLES Edited INTERFACE SYSTEM Refer to clinic/hospital department documented in this encounter Visit Diagnoses Diagnosis Displacement of lumbar intervertebral disc without myelopathy- Primary documented in this encounter Care Teams Bulk Truck Driver Relationship Specialty Start Date End Date Lonnie Nazario MD [address] [place] [address] PCP - General Internal Medicine 04/01/23 documented as of this encounter
--- OUTSIDE RECORDS SUMMARY | 2024-08-03 12:25 | XMS_ITS | CONTINUITY OF CARE DOCUMENT ---
Author Name rojas xie Address Unknown Organization [facility] Address [address] [place] [address] Phone [phone] Care Team Providers Care Truck Assembler Name Role Phone Vince ARANA, Keo Unavailable [phone] RENEE PEDERSEN MD Unavailable [phone] RENEE PEDERSEN MD Unavailable PROBLEMS Condition Status Date Provider Notes HTN ESSENTIAL active Keo Clarke MD HYPERCHOLESTEROLEMIA active Keoshanita HYMAN TO [facility] 2004, NEGATIVE STRESS 12/19 active 20 11/19/14 Keo Clarke MD ENCOUNTERS Date Type Provider Location Encounter Diag nosis - In-person encounter Office Visit Keo Bob Office BOOGIE TO [facility] 2004, NEGATIVE STRESS 12/19HYPERCHOLESTERO DEMETRIO ESSENTIAL VITAL SIGNS Date Observation Value Provider pulse rate 52 /min Kayla overton oxygen saturation, oximetry 98 % Kayla Burdne respiratory rate E&M 16 /min Morgan Burden [...] use, averag e drinks per day yes [facility] alcohol use, average drinks per day none LinkLogic number of years as a smoker 10 years or m ore LinkLog smoking status [facility] M[facility]US Date Observation Value Provider assessment of judgme nt and insight E&M Alert and oriented to time, place and person. Mood and affect are normal. Keo Clarke MD INSURANCE PROVIDERS Payer name Policy type / Coverage type [facility] ID QuickPayLUISA [employer] [id number] TREATMENT PLAN Date Name Performer follow up:His update d medication list for this problem includes: Simcor 500-20 Mg Tb24 (Niacin-simvastatin) ..... Two tab. daily at bedtime Keo Clarke MD follow up:Orders: C arotid Duplex Bilateral (CPT-89767) Keo Clarke MD follow up: H is updated medication list for this problem includes: Simcor 500-20 Mg Tb24 (Niacin-simvastatin) ..... Two tab. daily at bedtime Keo Clarke MD follow up: O rders: C arotid Duplex Bilateral (CPT-05718) Keo Clarke MD Date Name Carotid Duplex Bilat eral
--- OUTSIDE RECORDS SUMMARY | 2024-08-03 12:25 | XMS_ITS | Encounter Summary ---
Author Organization [facility] Address [address] [place] [address] Care Team Providers Care Sky Diver Name Role Phone Lonnie Nazario MD Primary Care Provider + [phone] Encounter Details Date Type Department Care Team (Latest Contact Info) Description 04/22/2007 Outpatient Historical [facility] Isacc Hernandez MD [address] [place] [address] Other Syndromes Affecting Cervical Region Social History Tobacco Use Types Packs/Day Years Used Date Smoking Tobacco: Never Assessed Sex and Gender Information Value Date Recorded Sex Assigned at Not on file 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
--- OUTSIDE RECORDS SUMMARY | 2024-08-03 12:25 | XMS_ITS | Encounter Summary ---
Author Organization [facility] Address 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
--- OUTSIDE RECORDS SUMMARY | 2024-08-03 12:25 | XMS_ITS | Encounter Summary ---
Author Organization [facility] Address [address] [place] [address] Care Team Providers Care Technical Information Specialist Name Role Phone Lonnie Nazario MD Primary Care Provider + [phone] Encounter Details Date Type Department Care Team (Latest Contact Info) Description 04/07/2007 Outpatient Historical [facility] Isacc Hernandez MD [address] [place] [address] Other Syndromes Affecting Cervical Region Social History Tobacco Use Types Packs/Day Years Used Date Smoking Tobacco: Never Assessed Sex and Gender Information Value Date Recorded Sex Assigned at Not on file 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
--- OUTSIDE RECORDS SUMMARY | 2024-08-03 12:25 | XMS_ITS | Encounter Summary ---
Author Organization [facility] Care Team Providers Care Manager Purchasing Name Role Phone Brian Benedict MD Primary Care Provide r Dre Payton MD Primary Care Provider [phone] Lonnie Nazario MD Primary Care Provide r Audelia Roberts NP Primary Care Provider [phone] Encounter Details Date Type Department Care Team (Latest Contact Info) Description 10/10/2016 Orders Only [facility] ProviderOlvin MD [address] [place] [address] Social History Tobacco Use Types Packs/Day Years Used Date Smoking Tobacco: Every Day Comments:Smoking History Pac ks/day: 10 Packs Alcohol Use Standard Drinks/Week Comments No 0 (1 standard drink = 0.6 oz pur e alcohol) Sex and Gender Information Value Date Recorded Sex Assigned at Not on file 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 Gender Identity Not on file [...] COVID: Suspected 05/15/2022 05/15/2022 05/15/2022 11:49 AM SHRIMP PEELING MACHINE OPERATOR COVID: Suspected 05/15/2022 05/15/2022 05/15/2022 8:54 PM SHRIMP PEELING MACHINE OPERATOR COVID: Suspected 09/04/2022 09/04/2022 09/04/2022 12:48 PM CDT documented as of this encounter Care Teams Manager Purchasing Relationship Specialty Start Date End Date Brian Benedict MD [address] [address] PCP - General 07/11/16 02/10/17 Der Payton MD [address] [place] [address] PCP - General Family Medicine 02/11/17 09/30/22 Lonnie Nazario MD [address] [place] [address] PCP - General Emergency Medicine 10/01/22 09/23/23 Audelia Roberts, MARISA [address] [place] [address] PCP - General Family Medicine 09/24/23 documented as of this encounter
--- OUTSIDE RECORDS SUMMARY | 2024-08-03 12:25 | XMS_ITS | Clinical Summary ---
Author Organization [facility] Address [address] [place] [address] Phone Care Team Providers Care Chemistry Quality Control Technician Name Role Phone Lonnie Nazario MD Primary Care Provider Allergies Active Allergy Reactions Criticality Noted Date [...] on file Legal Sex Male 3:32 AM DIAMOND DIE POLISHER Gender Identity Not on file Sexual Orientation Not on file Last Filed Vital Signs Vital Sign Reading Time Taken Comments Blood Pressure 136/81 05/07/2023 8:34 AM DIAMOND DIE POLISHER Pulse 83 05/07/2023 8:34 AM DIAMOND DIE POLISHER Temperature 36.9 C (98.4 F) 05/07/2023 8:34 AM DIAMOND DIE POLISHER Respiratory Rate 20 05/07/2023 8:34 AM DIAMOND DIE POLISHER Oxygen Saturation 96% 05/07/2023 8:34 AM DIAMOND DIE POLISHER Inhaled Oxygen Concentration - - Weight 110.2 kg (243 lb) 05/01/2023 2:59 PM DIAMOND DIE POLISHER Height 182.9 cm (6') 05/01/2023 2:59 PM DIAMOND DIE POLISHER Body Mass Index 32.96 05/01/2023 2:59 PM DIAMOND DIE POLISHER Plan of Treatment Health Maintenance Due Date [...] (#1) 2023 Medical Devices Implanted Type Area Mattress Weaver Device Identifier Shelf Expiration Date Model / Serial / Lot Sealant Duraseal 5ml - [id number] Implanted:Qty: 1 on 04/02/2023 by Mundo Parra MD at [facility] Biological N/A: Spine Lumbar [employer] MINA 07/11/2024 / / [id number] Collagen Duramatrix 3x3in Dms33 - [id number] Implanted:Qty: 1 on 05/02/2023 by Mundo Parra MD at [facility] Collagen N/A: Spine Lumbar RUSSEL- CMF fka ELODIABINGER 04/12/2025 DMS33 / / [id number] Duragen + 1x1in Dp-1011 - [id number] Implanted:Qty: 1 on 04/02/2023 by Mundo Parra MD at [facility] Graft N/A: Spine Lumbar [employer] 09/10/2025 [id number] / / [id number] Description:CHECKED BY SWETA Duragen + 1x1in Dp-1011 - [id number] Implanted:Qty: 1 on 04/02/2023 by Mundo Parra MD at [facility] Graft N/A: Spine Lumbar [employer] 06/10/2025 [id number] / / [id number] Description:CHECKED BY Duragen + 3x3in Dp-1033 - [id number] Implanted:Qty: 1 on 05/02/2023 by uMndo Parra MD at [facility] Graft N/A: Spine Lumbar [employer] 02/10/2026 [id number] / / [id number] Hemostatic Surgiflo 8ml W/ Thrombin 2994 - [id number] Implanted:Qty: 1 on 04/02/2023 by Mundo Parra MD at [facility] Hemostatic N/A: Spine Lumbar J[employer]J- [employer] 04/12/2024 2994 / / [id number] Hemostatic Surgiflo 8ml W/ Thrombin 2994 - [id number] Implanted:Qty: 1 on 04/28/2023 by Mundo Parra MD at [facility] Hemostatic N/A: Back J&J- [employer] 04/12/2024 2994 / / [id number] Hemostatic Surgiflo 8ml W/ Thrombin 2994 - [id number] Implanted:Qty: 1 on 05/02/2023 by Mundo Parra MD at [facility] Hemostatic N/A: Spine Lumbar J&J- [employer] 04/12/2024 2994 / / [id number] Sft Tiss Duramatrix 2x2in Implanted:Qty: 1 on 04/28/2023 by Mundo Parra MD at [facility] 03/12/2025 DMS22 / / [id number] Description:ADDED BY CD Insurance BCBS BLUE ACCESS/TRUE BLUE PPO Advance Directives For more information, please contact: [phone] * Full Code (Latest Code Status on File) Date Activated Date Inactivated Comments 05/02/2023 4:18 PM 05/07/2023 7:05 PM * Full Code Date Activated Date Inactivated Comments 04/28/2023 4:01 PM 04/29/2023 6:56 PM * Full Code Date Activated Date Inactivated Comments 04/02/2023 6:05 PM 04/03/2023 4:18 PM Care Teams Chemistry Quality Control Technician Relationship Specialty Start Date End Date Lonnie Nazario MD [address] [id number] PCP - General Internal Medicine 04/01/23
--- OUTSIDE RECORDS SUMMARY | 2024-08-03 12:25 | XMS_ITS | Clinical Summary ---
Author Organization [facility] Address [address] [place] [address] Phone Care Team Providers Care P 3 Armament/Ordnance Ima Technician Name Role Phone Unavailable Unavailable Unavailable Reason for Visit and Chief Complaint REFERRAL Problems Includes: Problems addressed during this encounter and other active Problems All Visits Onset Date Resolved Date Provider Condition S tatus Dorsopathy Low Back Pain Other 05/14/2023 URSULA JADE DO Active Last Documented On 9:21AM ; [facility] Plan of Treatment No Plan of Treatment [...] 08/01/2023 11:46AM By Ursula Jade DO ; [facility] Current Medications (continue as prescribed) Ondansetron HCl 4 MG Oral Tablet 08/01/2023 Provider : URSULA JADE DO Diagnosis: Other low back p ain 1 every 6 hours as needed Last Documented On 08/01/2023 12:04PM By Ursula Jade DO ; [facility] oxyCODONE-Acetaminophen 5-32 5 MG Oral Tablet 08/01/2023 Provider: URSULA JADE DO Diagnosis: Discitis, unspec ified, lumbosacral region 1 every 6 hours as needed Last Documented On 08/01/2023 11:49AM By Ursula Jade DO ; [facility] traMADol HCl 50 MG Oral Tablet 06/27/2023 Provider: URSULA JADE DO Diagnosis: Discitis, unspec ified, lumbar region Take one four times a day as needed Last Documented On 06/27/2023 8:49PM By Ursula Jade DO ; [facility] Daily Probiotic Oral Capsule 05/14/2023 Provider: Diagnosis: Last Documented On 05/14/2023 9:06AM By FREDIS ROSENTHAL LPN ; [facility] Vitamin C 1000 MG Oral Tablet 05/14/2023 Provider: Diagnosis: 2000mg daily Last Documented On 05/14/2023 9:10AM By FREDIS ROSENTHAL LPN ; [facility] SB Low Dose ASA EC 81 MG Oral Tablet Delayed Release 0 05/14/2023 Provider: Diagnosis: Last Documented On 05/14/2023 9:06AM By FREDIS ROSENTHAL LPN ; [facility] ALPRAZolam 0.5 MG Oral Tablet 05/14/2023 Provider: Diagnosis: Last Documented On 05/14/2023 9:05AM By FREDIS ROSENTHAL LPN ; [facility] Metoprolol Succinate ER 25 M G Oral Tablet Extended Release 24 Hour 05/14/2023 Provider: Diagnosis: Last Documented On 05/14/2023 9:04AM By FREDIS ROSENTHAL LPN ; [facility] Rosuvastatin Calcium 20 MG Oral Tablet 05/14/2023 Pr ovider: Diagnosis: Last Documented On 05/14/2023 9:04AM By FREDIS ROSENTHAL LPN ; [facility] Clopidogrel Bisulfate 75 MG Oral Tablet 05/14/2023 P rovider: Diagnosis: Last Documented On 05/14/2023 9:04AM By FREDIS ROSENTHAL LPN ; [facility] Medications Administered Includes: Administered [...] Active Last Documented On 4 9:12AM ; [facility] traMADol HCl Allergy 05/14/2023 Active Last Documented On 4 9:12AM ; [facility] Encounters Encounter Provider Location Date Check-In Time Check-Out Time Diagnosis REFERRAL URSULA JADE DO 05/25/2023 2:05PM 11:59PM Insurance Includes: Active Insurance Policies Plan Name Member ID Group # Subscriber Relationship Effect zheng Dates 1 - [facility] [id number] NACHO Amaya Clinical Notes Includes: Clinical Notes from this encounter No Clinical Notes Recorded
--- OUTSIDE RECORDS SUMMARY | 2024-08-03 12:25 | XMS_ITS | Clinical Summary ---
Author Organization [facility] Address [address] [place] [address] Care Team Providers Care Remote Sensing Technologist Name Role Phone Audelia Roberts APRN-CEMENT BOAT AND BARGE LOADER Primary Care Provid er Debby Orellana PA-C [facility] [phone] Source Comments [facility],non-owned Affiliates and Associated Physician Practices is amultiple site organization consisting of ambulatory clinics and hospital sitesin [place], [place], [place] and [place]. This disclosure is being madepursuant to the Care Everywhere program and may not contain all information available regarding this patient. Last updated 18.[facility] Allergies Active Allergy Reactions Criticality Noted Date Comments Hydrocodone GI Discomfort 09/03/2023 Hydrocodone-Acetaminophen GI Discomfort 024 Tramadol GI Discomfort 09/03/2023 Medications * Be aware that medications may not be up to date on this document. Alwaysverify current medications with the patient. clopidogrel (plaVIX) 75 MG tablet Take 1 (one) tablet by mouth once daily 3 Active aspirin EC (Ecotrin) 81 MG tablet Take 1 (one) tablet by mouth once daily Active rosuvastatin (Crestor) 20 MG tablet Take 1 (one) tablet by mouth once daily 4 Active metoprolol succinate XL 24hr (Toprol XL) 25 MG tablet Take 1 (one) tablet by mouth once daily 3 Active ALPRAZolam (Xanax) 0.5 MG tablet Take 1 (one) tablet by mouth 2 times daily as needed anxiety Active Ascorbic Acid 1000 MG Take 1 (one) tablet by mouth 2 times daily Active vitamin D3 (Cholecalcifer ol) 125 MCG (5000 UT) capsule Take 1 [...] MAGNESIA PO) Active acetaminophen (Tylenol) 325 MG tabletIndicati ons:Lumbar pain Take 2 (two) tablets by mouth every 6 hours Maximum allowable Acetaminophen amount = 4 Grams (4000 mg) / 24 hours. 4 Active polyethylene glycol 3350 (Miralax) 17 g packetIndicati ons:Lumbar pain Take 17 (seventeen) g by mouth once daily as needed for Constipation 30 packet 4 Active senna (Senokot) 8.6 MG tablet Take 1 (one) tablet by mouth once daily 30 tablet 4 Active oxyCODONE-acet aminophen (Percocet) 5-325 MG tabletIndicati ons:Discitis of lumbar region Take 1 (one) tablet by mouth every 6 hours as needed for Pain 28 tablet 4 Active cyclobenzaprin e (Flexeril) 5 MG tablet Take 1 (one) tablet by mouth 3 times daily as needed 10 tablet 4 Active Additional Information Patient not taking.Informant: Patient, Reported on 09/22/2023 ondansetron (Zofran) 4 MG tablet Take 1 (one) tablet by mouth every 6 hours as needed For nausea and vomiting. 21 tablet 4 Active ciprofloxacin (Cipro) 500 MG tablet Take 1 (one) tablet by mouth 2 times daily for 26 days 52 tablet 4 Active ciprofloxacin (Cipro) 500 MG tablet Take 1 (one) tablet by mouth 2 times daily for 90 days 60 tablet 2 4 Active ciprofloxacin (Cipro) 500 MG tablet Take 1 (one) tablet by mouth 2 times daily for 90 days 60 tablet 2 4 Active sulfamethoxazo le-trimethopri m (Bactrim DS; Septra DS) 800-160 MG tablet Take 1 (one) tablet by mouth 2 times daily for 30 days 60 tablet 4 Active gabapentin (Neurontin) 300 MG capsuleIndicat ions:S/P lumbar fusion Take 2 (two) capsules by mouth 3 times daily 180 capsule 1 4 Active sulfamethoxazo le-trimethopri m (Bactrim DS; Septra DS) 800-160 MG tablet TAKE 1 TABLET BY MOUTH TWICE DAILY 60 tablet 2 4 Active Active Problems Problem Noted Date Diagnosed Date Discitis of lumbar region 06/24/2023 Lumbar pain 06/24/2023 Encounters Date Type Department Care Team Description 07/22/2024 9:44 AM CDT - 07/22/2024 11:59 PM T Hospital Encounter [facility] [address] [place] [address] Discharge Disposition: Home or Self Care 07/22/2024 Travel 07/19/2024 Orders Only [facility] - Infectious Disease [address] [place] [phone] Debby Orellana PA-C Elevated C-reactive protein (CRP) 05/24/2024 Orders Only [facility] [address] [place] [phone] Debby Orellana PA-C Discitis of lumbar region 05/17/2024 11:21 AM CLAIMS CUSTOMER SERVICE REPRESENTATIVE - 05/17/2024 11:59 PM CLAIMS CUSTOMER SERVICE REPRESENTATIVE Hospital Encounter [facility] [address] [address] Brenden Bills MD Discharge Disposition: Home or Self Care 05/17/2024 11:15 AM CLAIMS CUSTOMER SERVICE REPRESENTATIVE Office Visit [facility] - Orthopedics [address] [place] [phone] Brenden Bills MD Discitis of lumbar region (Primary Dx) 05/17/2024 9:30 AM CLAIMS CUSTOMER SERVICE REPRESENTATIVE Office Visit [facility] - Infectious Disease [address] [place] [phone] Brenden Bills MD Hynes, Ashley M, PA-C Discitis of lumbar region (Primary Dx); Tinnitus of both ears 05/17/2024 Travel 05/16/2024 Orders Only [facility] - Orthopedics [address] [place] [phone] Brenden Bills MD S/P lumbar fusion 05/16/2024 Telephone [facility] - Centralized Scheduling [address] [place] [address] Debby Orellana PA-C Patient Requested Call from [...] Recorded Patient Health Questionnaire-2 Score 0 01/12/2024 [facility] - Occupational Stress [...] place to sleep or slept in a prison (including now)? No 08/31/2023 Sex and Gender Information Value Date Recorded Sex Assigned at Not on file Legal Sex Male 5:53 AM CLAIMS CUSTOMER SERVICE REPRESENTATIVE Gender Identity Not on file Sexual Orientation Not on file Last Filed Vital Signs Vital Sign Reading Time Taken Comments Blood Pressure 127/78 05/17/2024 9:15 AM CLAIMS CUSTOMER SERVICE REPRESENTATIVE Pulse 72 05/17/2024 9:15 AM CLAIMS CUSTOMER SERVICE REPRESENTATIVE Temperature 36.5 C (97.7 F) 05/17/2024 9:15 AM CLAIMS CUSTOMER SERVICE REPRESENTATIVE Respiratory Rate 18 05/17/2024 9:15 AM CLAIMS CUSTOMER SERVICE REPRESENTATIVE Oxygen Saturation 96% 05/17/2024 9:15 AM CLAIMS CUSTOMER SERVICE REPRESENTATIVE Inhaled Oxygen Concentration - - Weight 113.4 kg (250 lb) 05/17/2024 9:15 AM CLAIMS CUSTOMER SERVICE REPRESENTATIVE Height 182.9 cm (6' 0.01 ) 05/17/2024 9:15 AM CS T Body Mass Index 33.9 05/17/2024 9:15 AM CLAIMS CUSTOMER SERVICE REPRESENTATIVE Plan of Treatment Upcoming Encounters Date Type Department Care Team (Late st Contact Info) Description 09/13/2024 10:15 AM CDT Office Visit [facility] - Orthopedics [address] [place] [address], [place] [address] Brenden Bills MD [address] [place] [phone] Health Maintenance Due Date Last Done Comments [...] of 2) 2016 COVID-19 VACCINE (1 - 2023- season) 2023 DEPRESSION SCREENING 04/13/2024 08/11/2023 INFLUENZA [...] this topic Medical Devices Implanted Type Area Program Director Scouting Device Identifier Shelf Expiration Date Model / Serial / Lot Screw 7mm 50mm Pa Spne Pdcl Xpdm Ti Implanted:Qty: 2 on 08/31/2023 by Brenden Bills MD at [facility] N/A: Spine Lumbar Synthes Spine [id number] / / Screw 7mm 45mm Pa Spne Pdcl Xpdm Ti Implanted:Qty: 2 on 08/31/2023 by Brenden Bills MD at [facility] N/A: Spine Lumbar Synthes Spine [id number] / / Screw Set Ti 5.5mm Spne 1 Inr Ma Xpdm Implanted:Qty: 4 on 08/31/2023 by Brenden Bills MD at [facility] N/A: Spine Lumbar Synthes Spine [id number] / / Damián Spnl 35mm 5.5mm Xpdm Prebnt Ti Ln Implanted:Qty: 2 on 08/31/2023 by Brenden Bills MD at [facility] N/A: Spine Lumbar Synthes Spine [id number] / / Procedures Procedure Name Priority Date/Time Associated Diagnosis Comments C-REACTIVE PROTEIN Routine 07/22/2024 10 :01 AM CDT Elevated C-reactive protein (CRP) LAB RESULTS ORDER 06/13/2024 LAB RESULTS ORDER 06/13/2024 LAB RESULTS ORDER 06/13/2024 XR LUMBAR SPINE 2 OR 3VW Routine 05/17/2024 11:26 AM CLAIMS CUSTOMER SERVICE REPRESENTATIVE S/P lumbar fusion C-REACTIVE PROTEIN Routine 05/17/2024 9: 52 AM CLAIMS CUSTOMER SERVICE REPRESENTATIVE Discitis of lumbar region COMPREHENSIVE METABOLIC PANEL Routine 05/17/2024 9:52 AM CLAIMS CUSTOMER SERVICE REPRESENTATIVE Discitis of lumbar region CBC W AUTO DIFFERENTIAL Routine 05/17/2024 9:52 AM CLAIMS CUSTOMER SERVICE REPRESENTATIVE Discitis of lumbar region from Last 3 Months Results * (ABNORMAL) C-REACTIVE PROTEIN (07/22/2024 10:01 AM CDT) Only the most recent of2 resultswithin the time period is included. C-Reactive Protein 0.6(H) <=0.5 mg/dL 07/22/2024 10:49 AM CDT [facility] Blood BLOOD SPECIMEN / Unknown Lab Venipuncture / Unknown 07/22/2024 10:01 AM CDT 07/22/2024 10:23 AM CDT us Debby Orellana PA-C LAB - CHEMISTRY ORDERABLES F inal Result [address] [address], [facility] [phone] * LAB RESULTS ORDER (06/13/2024) Only the most recent of3 resultswithin the time period is included. 06/13/2024 Narrative 06/13/2024 Ordered by an unspecified provider. us Scanned Document LAB - THERAPEUTIC DRUG MONITORI NG ORDERABLES Final Result * XR Lumbar Spine 2 or 3Vw (05/17/2024 11:26 AM CLAIMS CUSTOMER SERVICE REPRESENTATIVE) Anatomical Region Laterality Modality Spine Radiographic Melissa ging 05/17/2024 11:5 4 AM CLAIMS CUSTOMER SERVICE REPRESENTATIVE Impressions 05/17/2024 1:04 PM CLAIMS CUSTOMER SERVICE REPRESENTATIVE IMPRESSION: Posterior instrumented spinal fusion at L4-L5. Unchanged alignment. Report dictated by Winston Angeles MD, (interventional radiology tech). IPedro MD have personally reviewed and interpreted this examination/study. > Interpreting Provider: Pedro Mora MD on 05/17/2024 1:04 PM Narrative 05/17/2024 1:04 PM CLAIMS CUSTOMER SERVICE REPRESENTATIVE PROCEDURE: XR LUMBAR SPINE 2 OR 3VW, DATE/TIME OF EXAM: 05/17/2024 11:26 AM, LOCATION [facility] INDICATION: Z98.1: S/P lumbar fusion ADDITIONAL CLINICAL [...] DATE/TIME OF EXAM: 05/17/2024 11:26 AM, LOCATION [facility] INDICATION: Z98.1: S/P lumbar fusion ADDITIONAL CLINICAL [...] alignment. Report dictated by Winston Angeles MD, (interventional radiology tech). I, Pedro Mora MD have personally reviewed and interpreted this examination/study. > Interpreting Provider: Pedro Mora MD on 05/17/2024 1:04 PM Brenden Bills MD DIAGNOSTIC IMAGING ORDERABLES Fi nal Result * CBC W/ DIFFERENTIAL (05/17/2024 9:52 AM [facility]) WBC 6.2 4.0 - 10.7 x10E9/L 05/17/2024 10:44 AM [facility] RBC Count 5.07 4.30 - 5.80 x10E12/L 05/17/2024 10:44 AM [facility] Hemoglobin 15.4 13.3 - 17.5 g/dL 05/17/2024 10:44 AM [facility] Hematocrit 45.9 38.7 - 51.1 % 05/17/2024 10:44 AM [facility] MCV 90.5 80.0 - 98.0 fL 05/17/2024 10:44 AM [facility] MCH 30.4 26.7 - 33.6 pg 05/17/2024 10:44 AM [facility] MCHC 33.6 31.7 - 36.3 g/dL 05/17/2024 10:44 AM [facility] RDW-CV 12.7 11.3 - 14.8 % 05/17/2024 10:44 AM [facility] Platelet Count 155 150 - 420 x10E9/L 05/17/2024 10:44 AM [facility] MPV 10.0 7.8 - 11.4 fL 05/17/2024 10:44 AM [facility] Neutrophil % 58.6 41.0 - 74.0 % 05/17/2024 10:44 AM [facility] Lymphocyte % 30.9 17.0 - 47.0 % 05/17/2024 10:44 AM [facility] Monocyte % 7.6 3.0 - 11.0 % 05/17/2024 10:44 AM [facility] Eosinophil % 2.1 0.0 - 7.0 % 05/17/2024 10:44 AM [facility] Basophil % 0.5 0.0 - 1.6 % 05/17/2024 10:44 AM [facility] Immature Granulocytes % 0.3 0.0 - 1.0 % 05/17/2024 10:44 AM [facility] Neutrophil Absolute 3.65 1.60 - 7.50 x10E9/L 05/17/2024 10:44 AM [facility] Lymphocyte Absolute 1.92 1.00 - 4.40 x10E9/L 05/17/2024 10:44 AM [facility] Monocyte Absolute 0.47 0.15 - 1.00 x10E9/L 05/17/2024 10:44 AM [facility] Eosinophil Absolute 0.13 0.00 - 0.60 x10E9/L 05/17/2024 10:44 AM [facility] Basophil Absolute 0.03 0.00 - 0.13 x10E9/L 05/17/2024 10:44 AM [facility] Blood BLOOD SPECIMEN / Unknown Lab Venipuncture / Unknown 05/17/2024 9:52 AM [facility] 05/17/2024 10:37 AM [facility] Debby Orellana PA-C LAB - HEMATOLOGY ORDERABLES Final Result [facility] [address] [place] [address], [facility] [phone] * COMPREHENSIVE METABOLIC PANEL (05/17/2024 9:52 AM [facility]) BUN 14 7 - 26 mg/dL 05/17/2024 11:09 AM [facility] Creatinine 0.81 0.71 - 1.16 mg/dL 05/17/2024 11:09 AM [facility] Sodium 138 136 - 145 mmol/L 05/17/2024 11:09 AM [facility] Potassium 3.8 3.5 - 4.5 mmol/L 05/17/2024 11:09 AM [facility] Chloride 104 98 - 107 mmol/L 05/17/2024 11:09 AM [facility] CO2 24 22 - 29 mmol/L 05/17/2024 11:09 AM [facility] Glucose 97 70 - 99 mg/dL 05/17/2024 11:09 AM [facility] Calcium 9.6 8.4 - 10.2 mg/dL 05/17/2024 11:09 AM [facility] Protein Total 7.1 6.0 - 8.3 g/dL 05/17/2024 11:09 AM [facility] Albumin 4.5 3.4 - 5.0 g/dL 05/17/2024 11:09 AM [facility] Bilirubin Total 0.5 0.2 - 1.2 mg/dL 05/17/2024 11:09 AM [facility] Alkaline Phosphatase 79 40 - 150 U/L 05/17/2024 11:09 AM [facility] ALT 26 5 - 55 U/L 05/17/2024 11:09 AM [facility] AST 25 5 - 34 U/L 05/17/2024 11:09 AM [facility] Anion Gap 10 6 - 16 05/17/2024 11:09 AM [facility] BUN/Creatinine Ratio 17 7 - 23 05/17/2024 11:09 AM [facility] Osmolality Calculated 286 275 - 295 mOsm/kg 05/17/2024 11:09 AM [facility] Albumin/Globulin Ratio 1.7 1.1 - 2.3 05/17/2024 11:09 AM [facility] eGFR by CKD-EPI >90 >=90 mL/min/1.7 3 m2 05/17/2024 11:09 AM [facility] Blood BLOOD SPECIMEN / Unknown Lab Venipuncture / Unknown 05/17/2024 9:52 AM [facility] 05/17/2024 10:37 AM [facility] Debby Orellana PA-C LAB - CHEMISTRY ORDERABLES F inal Result [facility] [address] [place] [address], [facility] [phone] from Last 3 Months Insurance JT Advance Directives * Full Code (Latest Code Status on File) Date Activated Date Inactivated Comments 08/31/2023 3:05 PM 09/03/2023 5:09 PM * Full Code Date Activated Date Inactivated Comments 08/31/2023 3:05 PM 08/31/2023 3:05 PM Care Teams Remote Sensing Technologist Relationship Specialty Start Date End Date Audelia Roberts, PROGRAM DIRECTOR SCOUTING-CEMENT BOAT AND BARGE LOADER [address] [place] [address] PCP - General Nurse Practitioner 08/19/23 Debby Orellana PAClarenceC [address] [place] [address] Physician It Technical Support Specialist Infectious Disease 09/22/23
--- OUTSIDE RECORDS SUMMARY | 2024-08-03 12:25 | XMS_ITS | Encounter Summary ---
Author Organization [facility] Address [address] [place] [address] Care Team Providers Care Cd Reactor Operator Name Role Phone Lonnie Nazario MD Primary Care Provider + [phone] Encounter Details Date Type Department Care Team (Latest Contact Info) Description 04/27/2006 Outpatient Historical [facility] Garrick Sheehan MD [address] [place] [address] Carpal Tunnel Syndrome (Primary Dx) Social History Tobacco Use Types Packs/Day Years Used Date Smoking Tobacco: Never Assessed Sex and Gender Information Value Date Recorded Sex Assigned at Not on file Legal Sex Male 3:32 AM ELECTRICAL WIRER Gender Identity Not on file Sexual Orientation Not on file documented as of this encounter Plan of Treatment Not on file documented as of this encounter Visit Diagnoses Diagnosis Carpal tunnel syndrome- Primary documented in this encounter Care Teams Cd Reactor Operator Relationship Specialty Start Date End Date Lonnie Nazario MD [address] [place] [address] PCP - General Internal Medicine 04/01/23 documented as of this encounter
--- OUTSIDE RECORDS SUMMARY | 2024-08-03 12:25 | XMS_ITS | Encounter Summary ---
Author Organization [facility] Address [address] [place] [address] Care Team Providers Care Observer Electrical Prospecting Name Role Phone Lonnie Nazario MD Primary Care Provider + [phone] Encounter Details Date Type Department Care Team (Late st Contact Info) Description 04/28/2006 Orders Only [facility] Internal Medicine Medical Ruby A [facility] [address] [address] Arlin Quarles MD [address] [place] [address] [address] [place] [address] Social History Tobacco Use Types Packs/Day Years Used Date Smoking Tobacco: Never Assessed Sex and Gender Information Value Date Recorded Sex Assigned at Not on file Legal Sex Male 3:32 AM RETRIEVAL SPECIALIST Gender Identity Not on file Sexual Orientation Not on file documented as of this encounter Progress Notes * Arlin Quarles MD - 09/07/2007 11:58 AM CDT TIME:09:48 am PATIENT`S HOME PHONE: PATIENT`S WORK PHONE: PATIENT`S INSURANCE: [facility] WHO TOOK THE CALL: Christine Coley I GENERAL INFORMATION ALTERNATIVE PHONE NUMBER: [phone] WHO CALLED: Patient called. CURRENT ALLERGY LIST: [...] OK until he sees PT and Dr. Solares. Please confirm he's set up appt. Also- [...] on filedocumented in this encounter Care Teams Observer Electrical Prospecting Relationship Specialty Start Date End Date Lonnie Nazario MD [address] [place] [address] PCP - General Internal Medicine 04/01/23 documented as of this encounter
== END 2024-08-03 10:36 | disposition home or self-care (01) ==
PROVIDERS: PCP Nurse Practitioner Family; Visit Provider Nurse Practitioner Family
DX: R79.82 Elevated C-reactive protein (CRP) (principal); T81.40XA Infection following a procedure, unspecified, initial encounter; Z98.890 Other specified postprocedural states
CPT/HCPCS: 72158; A9579

== ENCOUNTER 2025-02-02 02:25 | Day surgery (SDC) | payer BC, SELFPAY ==
[2025-02-01 12:14] VITALS: BMI 31.2
[2025-02-02] VITALS (13 sets, daily range): BP systolic 110–130; BP diastolic 63–91; PULSE 53–70; RESP 12–16; TEMP 36.3; O2SAT 92–97; BMI 32.0
--- OUTSIDE RECORDS SUMMARY | 2025-02-02 02:28 | XMS_ITS | Encounter Summary ---
Author Organization [facility] Address [address] [place] [address] Care Team Providers Care Toll Collector Name Role Phone Lonnie Nazario MD Primary Care Provider + [phone] Encounter Details Date Type Department Care Team (Latest Contact Info) Description 04/27/2006 Outpatient Historical [facility] Garrick Sheehan MD [address] [place] [address] Carpal Tunnel Syndrome (Primary Dx) Social History Tobacco Use Types Packs/Day Years Used Date Smoking Tobacco: Never Assessed Sex and Gender Information Value Date Recorded Sex Assigned at Not on file Legal Sex Male 3:32 AM MEDICAL DOCTOR MD Gender Identity Not on file Sexual Orientation Not on file documented as of this encounter Plan of Treatment Not on file documented as of this encounter Visit Diagnoses Diagnosis Carpal tunnel syndrome- Primary documented in this encounter Care Teams Toll Collector Relationship Specialty Start Date End Date Lonnie Nazario MD [address] [place] [address] PCP - General Internal Medicine 04/01/23 documented as of this encounter
--- OUTSIDE RECORDS SUMMARY | 2025-02-02 02:28 | XMS_ITS | Clinical Summary ---
Author Organization [facility] Address [address] [place] [address] Care Team Providers Care Filter Press Tender Head Name Role Phone Audelia Roberts APRN-THREAD WINDER Primary Care Provid er Debby Orellana PA-C [facility] [phone] [facility],non-owned Affiliates and Associated Physician Practices is amultiple site organization consisting of ambulatory clinics and hospital sitesin [place], [place], [place] and [place]. This disclosure is being madepursuant to the Care Everywhere program and may not contain all information available regarding this patient. Last updated 18.[facility] Allergies Active Allergy Reactions Criticality Noted Date [...] of lumbar region 06/24/2023 Lumbar pain 06/24/2023 Social History Tobacco Use Types Packs/Day Years [...] Recorded Patient Health Questionnaire-2 Score 0 01/12/2024 [facility] - Occupational [...] place to sleep or slept in a snf (including now)? No 08/31/2023 Sex and Gender Information Value Date Recorded Sex Assigned at Not on file Legal Sex Male 5:53 AM CHILDHOOD DEVELOPMENT TEACHER Gender Identity Not on file Sexual Orientation Not on file Last Filed Vital Signs Vital Sign Reading Time Taken Comments Blood Pressure 127/78 05/17/2024 9:15 AM CHILDHOOD DEVELOPMENT TEACHER Pulse 72 05/17/2024 9:15 AM CHILDHOOD DEVELOPMENT TEACHER Temperature 36.5 C (97.7 F) 05/17/2024 9:15 AM CHILDHOOD DEVELOPMENT TEACHER Respiratory Rate 18 05/17/2024 9:15 AM CHILDHOOD DEVELOPMENT TEACHER Oxygen Saturation 96% 05/17/2024 9:15 AM CHILDHOOD DEVELOPMENT TEACHER Inhaled Oxygen Concentration - - Weight 112.9 kg (249 lb) 09/13/2024 10:06 AM CDT Height 182.9 cm (6' 0.01) 05/17/2024 9:15 AM CS T Body Mass Index 33.76 05/17/2024 9:15 AM CHILDHOOD DEVELOPMENT TEACHER Plan of Treatment Health Maintenance Due Date [...] 1985 ZOSTER VACCINE (1 of 2) 2016 DEPRESSION SCREENING 04/13/2024 08/11/2023 COVID-19 VACCINE (2023- season) 2024 INFLUENZA VACCINE (#1) 2024 SCREENING FOR DIABETES 05/17/2027 , 04/12/2024, [...] this topic Medical Devices Implanted Type Area Software Implementation Project Manager Device Identifier Shelf Expiration Date Model / Serial / Lot Screw 7mm 50mm Pa Spne Pdcl Xpdm Ti Implanted:Qty: 2 on 08/31/2023 by Brenden Bills MD at [facility] N/A: Spine Lumbar Synthes Spine [id number] / / Screw 7mm 45mm Pa Spne Pdcl Xpdm Ti Implanted:Qty: 2 on 08/31/2023 by Brenden Bills MD at [facility] N/A: Spine Lumbar Synthes Spine [id number] / / Screw Set Ti 5.5mm Spne 1 Inr Ma Xpdm Implanted:Qty: 4 on 08/31/2023 by Brenden Bills MD at [facility] N/A: Spine Lumbar Synthes Spine [id number] / / Damián Spnl 35mm 5.5mm Xpdm Prebnt Ti Ln Implanted:Qty: 2 on 08/31/2023 by Brenden Bills MD at [facility] N/A: Spine Lumbar Synthes Spine [id number] / / Procedures Procedure Name Priority Date/Time Associated Diagnosis Comments COMPREHENSIVE METABOLIC PANEL Routine 05/17/2024 9:52 AM CHILDHOOD DEVELOPMENT TEACHER Discitis of lumbar region from Last 3 Months or Most Recently Relevant to Health Maintenance Results * COMPREHENSIVE METABOLIC PANEL (05/17/2024 9:52 AM CHILDHOOD DEVELOPMENT TEACHER) BUN 14 7 - 26 mg/dL 05/17/2024 11:09 AM [facility] Creatinine 0.81 0.71 - 1.16 mg/dL 05/17/2024 11:09 AM [facility] Sodium 138 136 - 145 mmol/L 05/17/2024 11:09 AM [facility] Potassium 3.8 3.5 - 4.5 mmol/L 05/17/2024 11:09 AM [facility] Chloride 104 98 - 107 mmol/L 05/17/2024 11:09 AM [facility] CO2 24 22 - 29 mmol/L 05/17/2024 11:09 AM [facility] Glucose 97 70 - 99 mg/dL 05/17/2024 11:09 AM [facility] Calcium 9.6 8.4 - 10.2 mg/dL 05/17/2024 11:09 AM [facility] Protein Total 7.1 6.0 - 8.3 g/dL 05/17/2024 11:09 AM [facility] Albumin 4.5 3.4 - 5.0 g/dL 05/17/2024 11:09 AM [facility] Bilirubin Total 0.5 0.2 - 1.2 mg/dL 05/17/2024 11:09 AM [facility] Alkaline Phosphatase 79 40 - 150 U/L 05/17/2024 11:09 AM [facility] ALT 26 5 - 55 U/L 05/17/2024 11:09 AM [facility] AST 25 5 - 34 U/L 05/17/2024 11:09 AM [facility] Anion Gap 10 6 - 16 05/17/2024 11:09 AM [facility] BUN/Creatinine Ratio 17 7 - 23 05/17/2024 11:09 AM [facility] Osmolality Calculated 286 275 - 295 mOsm/kg 05/17/2024 11:09 AM [facility] Albumin/Globulin Ratio 1.7 1.1 - 2.3 05/17/2024 11:09 AM [facility] eGFR by CKD-EPI >90 >=90 mL/min/1.7 3 m2 05/17/2024 11:09 AM [facility] Blood BLOOD SPECIMEN / Unknown Lab Venipuncture / Unknown 05/17/2024 9:52 AM CHILDHOOD DEVELOPMENT TEACHER 05/17/2024 10:37 AM CHILDHOOD DEVELOPMENT TEACHER Debby Orellana PA-C LAB - CHEMISTRY ORDERABLES F inal Result [facility] [address] [place] [address], [facility] [phone] from Last 3 Months or Most Recently Relevant to Health Maintenance Insurance [employer] Advance Directives * Full Code (Latest Code Status on File) Date Activated Date Inactivated Comments 08/31/2023 3:05 PM 09/03/2023 5:09 PM * Full Code Date Activated Date Inactivated Comments 08/31/2023 3:05 PM 08/31/2023 3:05 PM Care Teams Filter Press Tender Head Relationship Specialty Start Date End Date Audelia Roberts, CONTROLS OPERATOR MOLDED GOODS-THREAD WINDER PCP - General Nurse Practitioner 08/19/23 Debby Orellana PA-C [address] [place] [address] Physician Infection Control Manager Infectious Disease 09/22/23
--- OUTSIDE RECORDS SUMMARY | 2025-02-02 02:28 | XMS_ITS | Encounter Summary ---
Author Organization [facility] Address [address] [place] [address] Care Team Providers Care Bulk Gas Specialist Name Role Phone Lonnie Nazario MD Primary Care Provider + [phone] Encounter Details Date Type Department Care Team (Late st Contact Info) Description 04/22/2006 Orders Only [facility] Internal Medicine Medical [place] [facility] [address] [address] Arlin Quarles MD [address] [place] [address] [address] [place] [id number] Social History Tobacco Use Types Packs/Day Years Used Date Smoking Tobacco: Never Assessed Sex and Gender Information Value Date Recorded Sex Assigned at Not on file Legal Sex Male 3:32 AM REAR ADMIRAL Gender Identity Not on file Sexual Orientation [...] NEW PRESCRIPTION, 04/22/2006. LAB ORDERS: Order number: [id number] Test Ordered: XRAY HUMERUS LEFT Order number: [id number] Test Ordered: XRAY SHOULDER LEFT Order number: [id number] Test Ordered: NCV/EMG UPPER EXTREMITY LEFT 793.1-ABNORMAL [...] on filedocumented in this encounter Care Teams Bulk Gas Specialist Relationship Specialty Start Date End Date Lonnie Nazario MD [address] [place] [address] PCP - General Internal Medicine 04/01/23 documented as of this encounter
--- OUTSIDE RECORDS SUMMARY | 2025-02-02 02:28 | XMS_ITS | Encounter Summary ---
Author Organization [facility] Address [address] [place] [address] Care Team Providers Care Filleter Name Role Phone Lonnie Nazario MD Primary Care Provider + [phone] Encounter Details Date Type Department Care Team (Late st Contact Info) Description 04/14/2006 Emergency [facility] Leeroy Noel MD [facility] [place] [address] Er, Authorized P NO ADDRESS ON FILE Unspecified Chest Pain (Primary Dx) Social History Tobacco Use Types Packs/Day Years Used Date Smoking Tobacco: Never Assessed Sex and Gender Information Value Date Recorded Sex Assigned at Not on file Legal Sex Male 3:32 AM SHAKE BACKBOARD NOTCHER Gender Identity Not on file Sexual Orientation Not on file documented as of this encounter Plan of Treatment Not on file documented as of this encounter Procedures Procedure Name Priority Date/Time Associated Diagnosis Comments TROPONIN (W/REFLEX CKMB/CK) Routine 04/14/2006 5:56 PM SHAKE BACKBOARD NOTCHER CBC WITH DIFFERENTIAL Routine 04/14/2006 5:56 PM SHAKE BACKBOARD NOTCHER CBC WITH DIFFERENTIAL Routine 04/14/2006 5:56 PM SHAKE BACKBOARD NOTCHER COMPREHENSIVE METABOLIC PANEL Routine 04/14/2006 5:56 PM SHAKE BACKBOARD NOTCHER documented in this encounter Results * TROPONIN (W/REFLEX CKMB/CK) (04/14/2006 5:56 PM SHAKE BACKBOARD NOTCHER) TROPONIN T 0.01 <=0.03 ng/mL INTERFACE SYSTEM TROPONIN T INTERP Negative INTERFACE SYSTEM 04/14/2006 5:56 PM SHAKE BACKBOARD NOTCHER Leeroy Noel MD CHEMISTRY ORDERABLES Edited Performing Organization Address [facility] de Phone Number INTERFACE SYSTEM Refer to clinic/hospital department * CBC WITH DIFFERENTIAL (04/14/2006 5:56 PM SHAKE BACKBOARD NOTCHER) NEUTROPHILS 60 45 - 70 % INTERFAC [...] 0.20 K/uL INTERFACE SYSTEM 04/14/2006 5:56 PM SHAKE BACKBOARD NOTCHER Leeroy Noel MD HEMATOLOGY ORDERABLES Edited Performing Organization Address [facility] de Phone Number INTERFACE SYSTEM Refer to clinic/hospital department * (ABNORMAL) CBC WITH DIFFERENTIAL (04/14/2006 5:56 PM SHAKE BACKBOARD NOTCHER) WBC 5.7 4.0 - 9.8 K/uL INTERFACE [...] 12.4 fL INTERFACE SYSTEM 04/14/2006 5:56 PM SHAKE BACKBOARD NOTCHER us Leeroy Noel MD HEMATOLOGY ORDERABLES Edited Performing Organization Address [facility] Co de Phone Number INTERFACE SYSTEM Refer to clinic/hospital department * COMPREHENSIVE METABOLIC PANEL (04/14/2006 5:56 PM SHAKE BACKBOARD NOTCHER) GLUCOSE 83 65 - 99 mg/dL INTERFACE [...] and non- Americans is available on the [facility] at: [email or web address] Select: Lab Policies and Procedures Select: Reference Ranges - GFR 04/14/2006 5:56 PM SHAKE BACKBOARD NOTCHER us Leeroy Noel MD CHEMISTRY ORDERABLES Edited Performing Organization Address [facility] Co de Phone Number INTERFACE SYSTEM Refer to clinic/hospital department documented in this encounter Visit Diagnoses Diagnosis Chest pain, unspecified- Primary documented in this encounter Care Teams Filleter Relationship Specialty Start Date End Date Lonnie Nazario MD [address] [facility] [address] [place] [address] PCP - General Internal Medicine 04/01/23 documented as of this encounter
--- OUTSIDE RECORDS SUMMARY | 2025-02-02 02:28 | XMS_ITS | Clinical Summary ---
Author Organization [facility] Address [address] [place] [address] Care Team Providers Care Attractions Associate Name Role Phone Audelia Roberts NP Primary Care Provider [phone] Allergies Active Allergy Reactions Criticality Noted Date [...] (10 mg total) by mouth daily Active cholecalciferol (VITAMIN D-3) 70517 unit capsule Take 1 capsule (10,000 Units total) by mouth daily Active ALPRAZolam (XANAX) 0.5 mg tablet Take by mouth 2 (two) times a day as needed 4 Active metoprolol XL (TOPROL-XL) 25 mg extended release tablet TAKE 1 TABLET(25 MG) BY MOUTH DAILY 90 tablet 2 5 Active rosuvastatin (CRESTOR) 20 mg tablet TAKE 1 TABLET(20 MG) BY MOUTH DAILY 90 tablet 3 5 Active clopidogreL (PLAVIX) 75 mg tabletIndication s:Coronary artery disease of [place] artery of [place] heart with stable angina pectoris TAKE 1 TABLET(75 MG) BY MOUTH DAILY 90 tablet 2 5 Active nitroglycerin (NITROSTAT) 0.[address] 1 tablet (0.4 mg total) under the tongue every 5 (five) minutes as needed for chest pain 25 tablet 3 5 Active nitroglycerin (NITROSTAT) 0.[address] 1 tablet (0.4 mg total) under the tongue every 5 (five) minutes as needed for chest pain 25 tablet 3 1 01/14/20 25 Discontinu ed(Reorder ) Active Problems Problem Noted Date Diagnosed Date Encounter for medication management 09/24/2023 Pleuritic chest pain 03/27/2022 GALLARDO (dyspnea on exertion) 07/26/2020 Bilateral lower extremity edema 10/04/2019 Chronic sinusitis 11/21/2018 Facial pain, atypical 11/21/2018 Deviated nasal septum 11/21/2018 Anxiety 04/08/2018 Coronary artery disease of [place] artery of [place] heart with stable angina pectoris 02/11/2017 History [...] Encounters Date Type Department Care Team Description 01/12/2025 Telephone [facility] Cardiology [address] [place] [address] [address] [place] [address] Dominic Lacey MD Med Refill 12/05/2024 Telephone [facility] Cardiology [address] [place] [address] [address] [place] [phone] Dominic Lacey MD 12/05/2024 Results Follow-Up [facility] [address] [place] [address] [address] [place] [phone] Dominic Lacey MD NM MPI SPECT (Rest and/or Stress) Multiple Studies 12/02/2024 8:15 AM CDT Ancillary Procedure [facility] Cardiology at [address] [place] [address] Coronary artery disease of [place] artery of [place] heart with stable angina pectoris; Atypical chest pain 11/16/2024 3:15 PM CDT Office Visit [facility] [address] [place] [address] [address] [place] [phone] Dominic Lacey MD Coronary artery disease of [place] artery of [place] heart with stable angina pectoris (Primary Dx); Hyperlipidemia LDL goal <70; History of tobacco abuse; Atypical chest pain from Last 3 Months Surgical History Surgery [...] on file Legal Sex Male 8:12 AM WEIGHT CONTROL ENGINEER Gender Identity Not on file Sexual Orientation Not on file Obstetrics History Last Filed Vital Signs Vital Sign Reading Time Taken Comments Blood Pressure 122/76 11/16/2024 3:25 PM CDT Pulse 66 11/16/2024 3:25 PM CDT Temperature 36.9 C (98.4 F) 09/04/2022 11:20 AM CDT Respiratory Rate 18 09/04/2022 11:20 AM CDT Oxygen Saturation 96% 11/16/2024 3:25 PM CDT Inhaled Oxygen Concentration - - Weight 109.8 kg (242 lb) 11/16/2024 3:25 PM CDT Height 182.9 cm (6') 11/16/2024 3:25 PM CDT Body Mass Index 32.82 11/16/2024 3:25 PM CDT Plan of Treatment Health Maintenance Due Date Last Done Comments Colon Cancer Screening-Colonoscopy 1966 Depression Screening 1966 Hepatitis C Screening 1966 Prostate Cancer Screening-PSA 1966 DTaP/Tdap/Td Vaccine (1 - Tdap) 1977 Hepatitis B Screening 1984 Regular Well Visit/Exam 18-64 1984 Pneumococcal vaccine <65 (1 of 2 - PCV) 1985 Zoster Vaccine (1 of 2) 2016 Influenza Vaccine (#1) 2024 Procedures Procedure Name Priority Date/Time Associated Diagnosis Comments NM MPI SPECT (REST AND/OR STRESS) MULTIPLE STUDIES Schedule Routine, Read Routine (OP Routine) 12/02/2024 9:11 AM CDT Coronary artery disease of [place] artery of [place] heart with stable angina pectoris Atypical chest pain POCT LIPID PANEL Routine 11/16/2024 3:26 PM CDT Coronary artery disease of [place] artery of [place] heart with stable angina pectoris Hyperlipidemia LDL goal <70 from Last 3 Months Results * NM MPI SPECT (Rest and/or Stress) Multiple Studies (12/02/2024 9:11 AM CDT) Anatomical Region Laterality Modality Body N/A Electrocardiogra phy 12/02/2024 8:15 AM CDT Narrative 12/02/2024 12:29 PM CDT [facility] [address], [place] [address] [address] [facility] [address], [place] [address], [place] [address] P:[phone] P:[phone] MPI Imaging Report Patient Name: NACHO FLOYD R : 1965 Study Date: 12/02/2024 8:15:00 AM Gender: M Tech: [facility] Location: [facility] Provider: DOMINIC LACEY Height(Cm): 182.9 BSA: Weight(Kg): 109.8 Heart Rate: 138 BMI: 32.82 Order Provider: DOMINIC LACEY PHYSICIAN: Primary Care Physician: Audelia Roberts NP. [facility] Physician: Reilly Lacey M.D. Stress Supervision: Lonnie Merino M.D.,F.A.C.C. Stress Interpreting Physician: Lonnie Merino M.D.,F.A.C.C. Image Interpreting Physician: Lonnie Merino M.D.,F.A.C.C. PROCEDURES: Pharmacologic SPECT Report: Myocardial perfusion imaging with Tc99M Sestamibi SPECT at rest and stress post regadenoson (Lexiscan) infusion. INDICATIONS: Shortness Of Breath, Family Hx CAD, High Cholesterol, Former Smoker, I25.118 Atherosclerotic heart disease of [place] coronary artery with other forms of angina pectoris, and R07.89 Other chest pain. FINDINGS: Procedural Findings: One day rest/stress was used. Tc99m Sestamibi injected IV at rest was 12.8 millicuries 37.6 millicuries of Tc99M Sestamibi injected IV during Lexiscan stress Lexiscan 0.4mg administered IV over 10 seconds. Patient had no symptoms during stress test. Baseline heart rate was 59 BPM Maximum Heart Rate Achieved was: 96 BPM Baseline blood pressure was 117/87 mmHg Post Stress Blood Pressure was 131/83 mmHg Termination: Protocol complete. Resting ECG: Sinus rhythm. Poor R wave progression , low QRS voltage. Post ECG: No diagnostic ST changes. Perfusion Findings: A TID of 1.17 was automatically calculated. Attenuation correction utilized for the interpretation of this study. defect 1: Size is medium. Severity is moderate to severe in intensity. Location of defect is in the apex and mid to apical inferior segment. Reversibility is not present, defect is fixed. Type of defect is infarction. LV Function: Global left ventricular function is normal. LV appears to be mildly dilated. Left ventricular ejection fraction is 57 %. CONCLUSIONS: Sinus rhythm Poor R wave progression , low QRS voltage. No diagnostic ST changes. Global left ventricular function is normal. LV appears to be mildly dilated Left ventricular ejection fraction is 57 %. A TID of 1.17 was automatically calculated. Attenuation correction utilized for the interpretation of this study. Size is medium. Severity is moderate to severe in intensity. Location of defect is in the apex and mid to apical inferior segment. Reversibility is not present, defect is fixed. Type of defect is infarction. Electronically Signed By: Lonnie Merino MD, [facility] 12/02/2024 12:28:53 PM CDT Electronically Signed By: Lonnie Merino MD, [facility] 12/02/2024 12:28:53 PM CDT Procedure Note Lonnie Merino MD - 12/02/2024 [facility] [address], [place] [address] [address] [facility] [address], [place] [address], [place] [address] P:[phone] P:[phone] MPI Imaging Report Patient Name: NACHO FLOYD R : 1965 Study Date: 12/02/2024 8:15:00 AM Gender: M Tech: [facility] Location: [facility] Provider: DOMINIC LACEY Height(Cm): 182.9 BSA: Weight(Kg): 109.8 Heart Rate: 138 BMI: 32.82 Order Provider: DOMINIC LACEY PHYSICIAN: Primary Care Physician: Audelia Roberts NP. [facility] Physician: Reilly Lacey M.D. Stress Supervision: Lonnie Merino M.D.,F.A.C.C. Stress Interpreting Physician: Lonnie Merino M.D.,F.A.C.C. Image Interpreting Physician: Lonnie Merino M.D.,F.A.C.C. PROCEDURES: Pharmacologic SPECT Report: Myocardial perfusion imaging with Tc99M Sestamibi SPECT at rest and stresspost regadenoson (Lexiscan) infusion. INDICATIONS: Shortness Of Breath, Family Hx CAD, High Cholesterol, Former Smoker,I25.118 Atherosclerotic heart disease of [place] coronary artery with other formsof angina pectoris, and R07.89 Other chest pain. FINDINGS: Procedural Findings: One day rest/stress was used. Tc99m Sestamibi injected IV at rest was 12.8 millicuries 37.6 millicuries of Tc99M Sestamibi injected IV during Lexiscan stress Lexiscan 0.4mg administered IV over 10 seconds. Patient had no symptoms during stress test. Baseline heart rate was 59 BPM Maximum Heart Rate Achieved was: 96 BPM Baseline blood pressure was 117/87 mmHg Post Stress Blood Pressure was 131/83 mmHg Termination: Protocol complete. Resting ECG: Sinus rhythm. Poor R wave progression , low QRS voltage. Post ECG: No diagnostic ST changes. Perfusion Findings: A TID of 1.17 was automatically calculated. Attenuation correctionutilized for the interpretation of this study. defect 1: Size is medium. Severity is moderate to severe in intensity. Location ofdefect is in the apex and mid to apical inferior segment. Reversibility is not present,defect is fixed. Type of defect is infarction. LV Function: Global left ventricular function is normal. LV appears to be mildlydilated. Left ventricular ejection fraction is 57 %. CONCLUSIONS: Sinus rhythm Poor R wave progression , low QRS voltage. No diagnostic ST changes. Global left ventricular function is normal. LV appears to be mildlydilated Left ventricular ejection fraction is 57 %. A TID of 1.17 was automatically calculated. Attenuation correctionutilized for the interpretation of this study. Size is medium. Severity is moderate to severe in intensity. Location ofdefect is in the apex and mid to apical inferior segment. Reversibility is not present,defect is fixed. Type of defect is infarction. Electronically Signed By: Lonnie Merino MD, [facility] 12/02/2024 12:28:53 PM CDT Electronically Signed By: Lonnie Merino MD, [facility] 12/02/2024 12:28:53 PM CDT Dominic Lacey MD [facility] PROCEDURES Final R esult * (ABNORMAL) POCT lipid panel (11/16/2024 3:26 PM CDT) Cholesterol, POC 123 <200 MG/DL HDL, POC 45 >=40 mg/dL Triglycerides, POC 152(A) <=149 mg/dL LDL Cholesterol POC 48 <=129 mg/dL Chol/HDL Ratio, POC 1.1 NONE Non-HDL Cholesterol, POC 78 NONE mg/dL Cholesterol Total, POC 123 30 - 199 mg/dL Capillary blood 11/16/2024 3 :26 PM CDT us Dominic Lacey MD POINT OF CARE TEST ORDERA BLES Final Result from Last 3 Months Insurance [employer] [place] [employer] [place] Care Teams Attractions Associate Relationship Specialty Start Date End Date Audelia Roberts NP PCP - General Family Medicine 09/24/23
--- OUTSIDE RECORDS SUMMARY | 2025-02-02 02:28 | XMS_ITS | Encounter Summary ---
Author Organization [facility] Healthcare Address [address] [place] [address] Care Team Providers Care Box Sealing Machine Operator Name Role Phone Dre Payton MD Primary Care Provider [phone] Lonnie Nazario MD Primary Care Provide r Audelia Roberts NP Primary Care Provider [phone] Encounter Details Date Type Department Care Team (Late st Contact Info) Description 11/30/2017 Orders Only [facility] Health Information Management [address] [place] [address] Scanning, Provider Social History Tobacco Use Types Packs/Day Years Used Date Smoking Tobacco: Former Cigarettes Q uit: 05/14/2012 Smokeless Tobacco: Never Comments:Vapes Alcohol Use Standard Drinks/Week Comments No 0 (1 standard drink = 0.6 oz pur e alcohol) Sex and Gender Information Value Date Recorded Sex Assigned at Not on file Legal Sex Male 8:12 AM SNOW FENCE ERECTOR Gender Identity Not on file Sexual Orientation Not on file documented as of this encounter Plan of Treatment Not on file documented as of this encounter Procedures Procedure Name Priority Date/Time Associated Diagnosis Comments SCAN - RADIOLOGY/IMAGING 11/30/2017 documented in this encounter Results * SCAN - RADIOLOGY/IMAGING (11/30/2017) Anatomical Region Laterality Modality Other us Provider Scanning Final Result documented in this encounter Visit Diagnoses Not on filedocumented in this encounter Additional Health Concerns Infection Onset Date Last Indicated Resolved Time COVID: Suspected 05/15/2022 05/15/2022 05/15/2022 11:49 AM SNOW FENCE ERECTOR COVID: Suspected 05/15/2022 05/15/2022 05/15/2022 8:54 PM SNOW FENCE ERECTOR COVID: Suspected 09/04/2022 09/04/2022 09/04/2022 12:48 PM CDT documented as of this encounter Care Teams Box Sealing Machine Operator Relationship Specialty Start Date End Date Dre Payton MD [address] [place] [address] PCP - General Family Medicine 02/11/17 09/30/22 Lonnie Nazario MD [address] [place] [address] PCP - General Emergency Medicine 10/01/22 09/23/23 Audelia Roberts, MEDICAL INSTRUMENT CABLE FABRICATOR [address] [place] [address] PCP - General Family Medicine 09/24/23 documented as of this encounter
--- OUTSIDE RECORDS SUMMARY | 2025-02-02 02:28 | XMS_ITS | Encounter Summary ---
Author Organization [employer] Address [address] [place] [address] Care Team Providers Care Seat Maker Name Role Phone Lonnie Nazario MD Primary Care Provider + [phone] Encounter Details Date Type Department Care Team (Late st Contact Info) Description 04/10/2006 Outpatient Historical [facility] Support Serv. ([facility] Card[facility]) [address] [place] [address] Urmila Hernandez MD [address] [address] [address] [place] [phone] Social History Tobacco Use Types Packs/Day Years Used Date Smoking Tobacco: Never Assessed Sex and Gender Information Value Date Recorded Sex Assigned at Not on file Legal Sex Male 3:32 AM DEAD MAIL CHECKER Gender Identity Not on file Sexual Orientation Not on file documented as of this encounter Plan of Treatment Not on file documented as of this encounter Visit Diagnoses Not on filedocumented in this encounter Care Teams Seat Maker Relationship Specialty Start Date End Date Lonnie Nazario MD [address] [place] [phone] PCP - General Internal Medicine 04/01/23 documented as of this encounter
--- OUTSIDE RECORDS SUMMARY | 2025-02-02 02:28 | XMS_ITS | Encounter Summary ---
Author Organization [facility] Address [address] [place] [address] Care Team Providers Care Adult Manager Name Role Phone Audelia Roberts APRN-EXPLOSIVE ORDNANCE HANDLER Primary Care Provid er Debby Orellana PA-C Unavailable [phone] Reason for Visit * Reason Onset Date Comments Follow-up 09/29/2023 See note Encounter Details Date Type Department Care Team (Late st Contact Info) Description 09/29/2023 Telephone [facility] - Infectious Disease [address] [place] [address] Debby Orellana PA-C [address] [place] [address] Follow-up (See note ) Social History Tobacco [...] Recorded Patient Health Questionnaire-2 Score 0 09/22/2023 [facility] Occupat ional Health - Occupational Stress [...] place to sleep or slept in a mcc (including now)? No 08/31/2023 Sex and Gender Information Value Date Recorded Sex Assigned at Not on file Legal Sex Male 5:53 AM SCIENTIFIC EDITOR Gender Identity Not on file Sexual Orientation [...] 09/26 at 0900 he declined going to sikhism due to pain and laid down in [...] on filedocumented in this encounter Care Teams Adult Manager Relationship Specialty Start Date End Date Audelia Roberts APRN-EXPLOSIVE ORDNANCE HANDLER PCP - General Nurse Practitioner 08/19/23 Debby Orellana PA-C [address] [place] [address] Physician Category Development Analyst Infectious Disease 09/22/23 documented as of this encounter
--- OUTSIDE RECORDS SUMMARY | 2025-02-02 02:28 | XMS_ITS | Encounter Summary ---
Author Organization [facility] Address [address] [place] [address] Care Team Providers Care Inker Name Role Phone Lonnie Nazario MD Primary Care Provider + [phone] Encounter Details Date Type Department Care Team (Late st Contact Info) Description 03/23/2007 Emergency [facility] [place], Authorized P NO ADDRESS ON FILE Michael Davies DO [address] [place] [address] Social History Tobacco Use Types Packs/Day Years Used Date Smoking Tobacco: Never Assessed Sex and Gender Information Value Date Recorded Sex Assigned at Not on file Legal Sex Male 3:32 AM REGIONAL RECRUITER Gender Identity Not on file Sexual Orientation Not on file documented as of this encounter Plan of Treatment Not on file documented as of this encounter Procedures Procedure Name Priority Date/Time Associated Diagnosis Comments CBC WITH DIFFERENTIAL Routine 03/23/2007 7:08 PM REGIONAL RECRUITER CBC WITH DIFFERENTIAL Routine 03/23/2007 7:08 PM REGIONAL RECRUITER D-DIMER Routine 03/23/2007 7:08 PM REGIONAL RECRUITER C-REACTIVE PROTEIN Routine 03/23/2007 7: 08 PM REGIONAL RECRUITER TROPONIN Routine 03/23/2007 7:08 PM REGIONAL RECRUITER COMPREHENSIVE METABOLIC PANEL Routine 03/23/2007 7:08 PM REGIONAL RECRUITER documented in this encounter Results * TROPONIN (03/23/2007 7:08 PM REGIONAL RECRUITER) Pathologist [facility] TROPONIN T 0.01 <=0.03 ng/mL INTERFACE SYSTEM TROPONIN T INTERP Negative INTERFACE SYSTEM 03/23/2007 7:08 PM REGIONAL RECRUITER Michael Davies DO CHEMISTRY ORDERABLES Edited Performing Organization Address City/[facility] de Phone Number INTERFACE SYSTEM Refer to clinic/hospital department * CBC WITH DIFFERENTIAL (03/23/2007 7:08 PM REGIONAL RECRUITER) Pathologist [facility] NEUTROPHILS 59 45 - 70 % INTERFAC [...] 0.20 K/uL INTERFACE SYSTEM 03/23/2007 7:08 PM REGIONAL RECRUITER Michael Davies DO HEMATOLOGY ORDERABLES Edited Performing Organization Address [facility] de Phone Number INTERFACE SYSTEM Refer to clinic/hospital department * (ABNORMAL) CBC WITH DIFFERENTIAL (03/23/2007 7:08 PM REGIONAL RECRUITER) Pathologist [facility] WBC 6.8 4.0 - 9.8 K/uL INTERFACE [...] 12.4 fL INTERFACE SYSTEM 03/23/2007 7:08 PM REGIONAL RECRUITER Michael Davies DO HEMATOLOGY ORDERABLES Edited Performing Organization Address [facility] Phone Number INTERFACE SYSTEM Refer to clinic/hospital department * D-DIMER (03/23/2007 7:08 PM REGIONAL RECRUITER) D-DIMER QUANT <0.22 <=0.42 ug/mL FEU INTERFACE [...] examination, including risk stratification. 03/23/2007 7:08 PM REGIONAL RECRUITER Michael Davies DO HEMATOLOGY ORDERABLES Edited Performing Organization Address [facility] Phone Number INTERFACE SYSTEM Refer to clinic/hospital department * C-REACTIVE PROTEIN (03/23/2007 7:08 PM REGIONAL RECRUITER) CRP 0.4 0.0 - 0.8 mg/dL INTERFACE SYSTEM 03/23/2007 7:08 PM REGIONAL RECRUITER Michael Davies DO CHEMISTRY ORDERABLES Edited Performing Organization Address [facility] Phone Number INTERFACE SYSTEM Refer to clinic/hospital department * (ABNORMAL) COMPREHENSIVE METABOLIC PANEL (03/23/2007 7:08 PM REGIONAL RECRUITER) GLUCOSE 87 65 - 99 mg/dL INTERFACE [...] and non- Americans is available on the [facility] Intranet at: [email or web address] Select: Lab Policies and Procedures Select: Reference Ranges - GFR 03/23/2007 7:08 PM REGIONAL RECRUITER Michael Davise DO CHEMISTRY ORDERABLES Edited INTERFACE SYSTEM Refer to clinic/hospital department documented in this encounter Visit Diagnoses Not on filedocumented in this encounter Care Teams Inker Relationship Specialty Start Date End Date Lonnie Nazario MD [address] [place] [address] PCP - General Internal Medicine 04/01/23 documented as of this encounter
--- OUTSIDE RECORDS SUMMARY | 2025-02-02 02:28 | XMS_ITS | Encounter Summary ---
Author Organization [employer] [facility] Address [address] [place] [address] Care Team Providers Care Greenhouse Worker Name Role Phone Lonnie Nazario MD Primary Care Provider + [phone] Encounter Details Date Type Department Care Team (Late st Contact Info) Description 04/27/2006 Outpatient Historical [facility] Support Services [facility] [place] [address] [place] [address] Garrick Sheehan MD [address] [place] [address] Social History Tobacco Use Types Packs/Day Years Used Date Smoking Tobacco: Never Assessed Sex and Gender Information Value Date Recorded Sex Assigned at Not on file Legal Sex Male 3:32 AM TACKER OFF Gender Identity Not on file Sexual Orientation Not on file documented as of this encounter Plan of Treatment Not on file documented as of this encounter Visit Diagnoses Not on filedocumented in this encounter Care Teams Greenhouse Worker Relationship Specialty Start Date End Date Lonnie Nazario MD [address] [place] [address] PCP - General Internal Medicine 04/01/23 documented as of this encounter
--- OUTSIDE RECORDS SUMMARY | 2025-02-02 02:28 | XMS_ITS | Encounter Summary ---
Author Organization [facility] Address [address] [place] [address] Care Team Providers Care Specialty Cook Name Role Phone Lonnie Nazario MD Primary Care Provider + [phone] Encounter Details Date Type Department Care Team (Latest Contact Info) Description 04/07/2007 Outpatient Historical [facility] Isacc Hernandez MD [address] [facility] [address] [place] [address] Other Syndromes Affecting Cervical Region Social History Tobacco Use Types Packs/Day Years Used Date Smoking Tobacco: Never Assessed Sex and Gender Information Value Date Recorded Sex Assigned at Not on file Legal Sex Male 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
--- OUTSIDE RECORDS SUMMARY | 2025-02-02 02:28 | XMS_ITS | Encounter Summary ---
Author Organization [facility] Address [address] [place] [address] Care Team Providers Care Care Partner Name Role Phone Lonnie Nazario MD Primary Care Provider + [phone] Encounter Details Date Type Department Care Team (Late st Contact Info) Description 04/11/2006 Outpatient Historical [facility] [address] [place] [address] Tate Portillo MD NO ADDRESS ON FILE Social History Tobacco Use Types Packs/Day Years Used Date Smoking Tobacco: Never Assessed Sex and Gender Information Value Date Recorded Sex Assigned at Not on file Legal Sex Male 3:32 AM WOOD POLE TREATER Gender Identity Not on file Sexual Orientation Not on file documented as of this encounter Plan of Treatment Not on file documented as of this encounter Visit Diagnoses Not on filedocumented in this encounter Care Teams Care Partner Relationship Specialty Start Date End Date Lonnie Nazario MD [address] [place] [address] PCP - General Internal Medicine 04/01/23 documented as of this encounter
--- OUTSIDE RECORDS SUMMARY | 2025-02-02 02:28 | XMS_ITS | Encounter Summary ---
Author Organization [facility] Address [address] [place] [address] Care Team Providers Care In House Counsel Name Role Phone Lonnie Nazario MD Primary Care Provider + [phone] Encounter Details Date Type Department Care Team (Latest Contact Info) Description 06/24/2006 Outpatient Historical [facility] [place] [address] [address] Urinary Tract Infection, Site not Specified (Primary Dx) Social History Tobacco Use Types Packs/Day Years Used Date Smoking Tobacco: Never Assessed Sex and Gender Information Value Date Recorded Sex Assigned at Not on file Legal Sex Male 3:32 AM GERIATRIC AIDE Gender Identity Not on file Sexual Orientation Not on file documented as of this encounter Plan of Treatment Not on file documented as of this encounter Visit Diagnoses Diagnosis Urinary tract infection, site not specified- Primary documented in this encounter Care Teams In House Counsel Relationship Specialty Start Date End Date Lonnie Nazario MD [address] [place] [address] PCP - General Internal Medicine 04/01/23 documented as of this encounter
--- OUTSIDE RECORDS SUMMARY | 2025-02-02 02:28 | XMS_ITS | Encounter Summary ---
Author Organization [facility] Address [address] [place] [address] Care Team Providers Care Well Logging Mud Analysis Captain Name Role Phone Lonnie Nazario MD Primary Care Provider + [phone] Encounter Details Date Type Department Care Team (Latest Contact Info) Description 04/22/2007 Outpatient Historical [facility] Isacc Hernandez MD [address] [facility] [address] [facility] [address] [place] [address] Other Syndromes Affecting Cervical Region Social History Tobacco Use Types Packs/Day Years Used Date Smoking Tobacco: Never Assessed Sex and Gender Information Value Date Recorded Sex Assigned at Not on file Legal Sex Male 3:32 AM 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
--- OUTSIDE RECORDS SUMMARY | 2025-02-02 02:28 | XMS_ITS | Encounter Summary ---
Author Organization [facility] Address 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
--- OUTSIDE RECORDS SUMMARY | 2025-02-02 02:28 | XMS_ITS | Encounter Summary ---
Author Organization [facility] Address [address] [place] [address] Care Team Providers Care Cutting And Splicing Supervisor Name Role Phone Lonnie Nazario MD Primary Care Provider + [phone] Encounter Details Date Type Department Care Team (Late st Contact Info) Description 04/17/2006 Emergency [facility] Tate De La Rosa Jr., MD [address] [place], [place] [address] Er, Authorized P NO ADDRESS ON FILE Other Chronic Pain (Primary Dx) Social History Tobacco Use Types Packs/Day Years Used Date Smoking Tobacco: Never Assessed Sex and Gender Information Value Date Recorded Sex Assigned at Not on file Legal Sex Male 3:32 AM HORSE IDENTIFIER Gender Identity Not on file Sexual Orientation Not on file documented as of this encounter Plan of Treatment Not on file documented as of this encounter Procedures Procedure Name Priority Date/Time Associated Diagnosis Comments TROPONIN (W/REFLEX CKMB/CK) Routine 04/17/2006 4:12 PM HORSE IDENTIFIER ED HOLD Routine 04/17/2006 4:11 PM HORSE IDENTIFIER documented in this encounter Results * TROPONIN (W/REFLEX CKMB/CK) (04/17/2006 4:12 PM HORSE IDENTIFIER) TROPONIN T <0.01 <=0.03 ng/mL INTERFACE SYSTEM TROPONIN T INTERP Negative INTERFACE SYSTEM 04/17/2006 4:12 PM HORSE IDENTIFIER us Tate Ornelas Jr., MD CHEMISTRY ORDERABLES Edite d Performing Organization Address City/[facility] de Phone Number INTERFACE SYSTEM Refer to clinic/hospital department * ED HOLD (04/17/2006 4:11 PM HORSE IDENTIFIER) SPECIMEN HOLD, BLOOD 7 days INTERFACE SYSTEM 04/17/2006 4:11 PM HORSE IDENTIFIER us Tate Ornelas Jr., MD CHEMISTRY ORDERABLES Edite d Performing Organization Address [facility] de Phone Number INTERFACE SYSTEM Refer to clinic/hospital department documented in this encounter Visit Diagnoses Diagnosis Other chronic pain- Primary documented in this encounter Care Teams Cutting And Splicing Supervisor Relationship Specialty Start Date End Date Lonnie Nazario MD [address] [place] [phone] PCP - General Internal Medicine 04/01/23 documented as of this encounter
--- OUTSIDE RECORDS SUMMARY | 2025-02-02 02:28 | XMS_ITS | Encounter Summary ---
Author Organization [facility] Address 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) Social History Tobacco Use Types Packs/Day Years Used Date Smoking Tobacco: Never Assessed Sex and Gender Information Value Date Recorded Sex Assigned at Not on file Legal Sex Male 3:32 AM TOBACCO BLENDER Gender Identity Not on file Sexual Orientation [...] MD URINE ORDERABLES Edited Performing Organization Address City/[facility] Co de Phone Number INTERFACE SYSTEM Refer to clinic/hospital department * (ABNORMAL) HEMOGLOBIN AND HEMATOCRIT (07/31/2006 9:58 AM CDT) HEMOGLOBIN 17.1(H) 13.6 - 16.5 g/dL INTERFACE SYSTEM HEMATOCRIT 48.2(H) 40.0 - 48.0 % INTERFACE SYSTEM 07/31/2006 9:58 AM CDT us Juan Alberto MD HEMATOLOGY ORDERABLES Edited Performing Organization Address [facility] de Phone Number INTERFACE SYSTEM Refer [...] [facility] Intranet at: [email or web address] Select: Lab Policies and Procedures Select: Reference Ranges - GFR 07/31/2006 9:58 AM CDT Juan Alberto MD CHEMISTRY ORDERABLES Edited INTERFACE SYSTEM Refer to clinic/hospital department documented in this encounter Visit Diagnoses Diagnosis Displacement of lumbar intervertebral disc without myelopathy- Primary documented in this encounter Care Teams Lokie Driver Relationship Specialty Start Date End Date Lonnie Nazario MD [address] [place] [address] PCP - General Internal Medicine 04/01/23 documented as of this encounter
--- OUTSIDE RECORDS SUMMARY | 2025-02-02 02:28 | XMS_ITS | Encounter Summary ---
Author Organization [facility] Address 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
--- OUTSIDE RECORDS SUMMARY | 2025-02-02 02:28 | XMS_ITS | Encounter Summary ---
Author Organization [facility] Address [address] [place] [address] Care Team Providers Care Livestock Handler Name Role Phone Lonnie Nazario MD Primary Care Provider + [phone] Encounter Details Date Type Department Care Team (Late st Contact Info) Description 04/28/2006 Orders Only [facility] Internal Medicine Medical [facility] [address] [address] Arlin Quarles MD [address] [place] [address] [address] [place] [address] Social History Tobacco Use Types Packs/Day Years Used Date Smoking Tobacco: Never Assessed Sex and Gender Information Value Date Recorded Sex Assigned at Not on file 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 CURRENT ALLERGY LIST: [...] on filedocumented in this encounter Care Teams Livestock Handler Relationship Specialty Start Date End Date Lonnie Nazario MD [address] [place] [address] PCP - General Internal Medicine 04/01/23 documented as of this encounter
--- OUTSIDE RECORDS SUMMARY | 2025-02-02 02:28 | XMS_ITS | Encounter Summary ---
Author Organization [facility] Address 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
--- OUTSIDE RECORDS SUMMARY | 2025-02-02 02:28 | XMS_ITS | Clinical Summary ---
Author Organization [facility] Address [address] [place] [address] Phone Care Team Providers Care Terminal System Operator Name Role Phone Lonnie Nazario MD [...] and other examination of lung field 04/22/2006 Social History Tobacco Use Types Packs/Day Years [...] on file Legal Sex Male 3:32 AM MEAT BLENDER Gender Identity Not on file Sexual Orientation Not on file Last Filed Vital Signs Vital Sign Reading Time Taken Comments Blood Pressure 136/81 05/07/2023 8:34 AM MEAT BLENDER Pulse 83 05/07/2023 8:34 AM MEAT BLENDER Temperature 36.9 C (98.4 F) 05/07/2023 8:34 AM MEAT BLENDER Respiratory Rate 20 05/07/2023 8:34 AM MEAT BLENDER Oxygen Saturation 96% 05/07/2023 8:34 AM MEAT BLENDER Inhaled Oxygen Concentration - - Weight 110.2 kg (243 lb) 05/01/2023 2:59 PM MEAT BLENDER Height 182.9 cm (6') 05/01/2023 2:59 PM MEAT BLENDER Body Mass Index 32.96 05/01/2023 2:59 PM MEAT BLENDER Plan of Treatment Health Maintenance Due Date Last Done Comments DTAP/TDAP/TD VACCINES (1 - Tdap) 1985 HEPATITIS B VACCINES (1 of 3 - 19+ 3-dose series) 05/14 COLORECTAL SCREENING 2011 Colorectal Cancer Screening 2011 FIT-DNA Q 3 years 2011 FIT/FOBT Q 1 year 2011 Flex Sig/CT Colonography Q 5 years 2011 ZOSTER VACCINE (1 of 2) 2016 INFLUENZA VACCINE (#1) 2024 Medical Devices Implanted Type Area Customer Account Administrator Device Identifier Shelf Expiration Date Model / Serial / Lot Sealant Duraseal 5ml - [id number] Implanted:Qty: 1 on 04/02/2023 by Mundo Parra MD at [facility] Biological N/A: Spine Lumbar [employer] 07/11/2024 / / [id number] Collagen Duramatrix 3x3in Dms33 - [id number] Implanted:Qty: 1 on 05/02/2023 by Mundo Parra MD at [facility] Collagen N/A: Spine Lumbar RUSSEL- CMF fka LEIBINGER 04/12/2025 DMS33 / / [id number] Duragen + 1x1in Dp-1011 - [id number] Implanted:Qty: 1 on 04/02/2023 by Mundo Parra MD at [facility] Graft N/A: Spine Lumbar [employer] 09/10/2025 [id number] / / [id number] Description:CHECKED BY 12 .22.23 Duragen + 1x1in Dp-1011 - [id number] Implanted:Qty: 1 on 04/02/2023 by Mundo Parra MD at [facility] Graft N/A: Spine Lumbar [employer] 06/10/2025 [id number] / / [id number] Description:CHECKED BY 12 .22.23 Duragen + 3x3in Dp-1033 - [id number] Implanted:Qty: 1 on 05/02/2023 by Mundo Parra MD at [facility] Graft N/A: Spine Lumbar [employer] 02/10/2026 [id number] / / [id number] Hemostatic Surgiflo 8ml W/ Thrombin 2994 - [id number] Implanted:Qty: 1 on 04/02/2023 by Mundo Parra MD at [facility] Hemostatic N/A: Spine Lumbar J[employer]J- [employer] 04/12/2024 2994 / / [id number] Hemostatic Surgiflo 8ml W/ Thrombin 2994 - [id number] Implanted:Qty: 1 on 04/28/2023 by Mundo Parra MD at [facility] Hemostatic N/A: Back J&J- [employer] 04/12/2024 2994 / / [id number] Hemostatic Surgiflo 8ml W/ Thrombin 2994 - [id number] Implanted:Qty: 1 on 05/02/2023 by Mundo Parra MD at [facility] Hemostatic N/A: Spine Lumbar J&J- [employer] 04/12/2024 2994 / / [id number] Grft Sft Tiss Duramatrix 2x2in Implanted:Qty: 1 on 04/28/2023 by Mundo Parra MD at [facility] 03/12/2025 DMS22 / / [id number] 1 Description:ADDED BY CD Insurance [facility] BLUE ACCESS/TRUE BLUE PPO Advance Directives For more information, please contact: [phone] * Full Code (Latest Code Status on File) Date Activated Date Inactivated Comments 05/02/2023 4:18 PM 05/07/2023 7:05 PM * Full Code Date Activated Date Inactivated Comments 04/28/2023 4:01 PM 04/29/2023 6:56 PM * Full Code Date Activated Date Inactivated Comments 04/02/2023 6:05 PM 04/03/2023 4:18 PM Care Teams Terminal System Operator Relationship Specialty Start Date End Date Lonnie Nazario MD [address] [address] PCP - General Internal Medicine 04/01/23
--- OUTSIDE RECORDS SUMMARY | 2025-02-02 02:28 | XMS_ITS | Encounter Summary ---
Author Organization [facility] Address 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
--- OUTSIDE RECORDS SUMMARY | 2025-02-02 02:28 | XMS_ITS | Encounter Summary ---
Author Organization [facility] Address 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
--- OUTSIDE RECORDS SUMMARY | 2025-02-02 02:28 | XMS_ITS | Encounter Summary ---
Author Organization [facility] Address [address] [place] [address] Care Team Providers Care Capsule Inspector Name Role Phone Lonnie Nazario MD Primary Care Provider + [phone] Encounter Details Date Type Department Care Team (Late st Contact Info) Description 04/22/2006 Outpatient Historical [facility] Internal Medicine Medical [place] [facility] [address] [facility] [address] [address] Arlin Quarles MD [address] [place] [address] [address] [place] [address] Social History Tobacco Use Types Packs/Day Years Used Date Smoking Tobacco: Never Assessed Sex and Gender Information Value Date Recorded Sex Assigned at Not on file 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 Gender Identity Not on file Sexual Orientation Not on file documented as of this encounter Last Filed Vital Signs Vital Sign Reading Time Taken Comments Blood Pressure 110/80 04/22/2006 3:15 PM WOOD CAR BUILDER Pulse 80 04/22/2006 3:15 PM WOOD CAR BUILDER Temperature - - Respiratory Rate - - Oxygen Saturation - - Inhaled Oxygen Concentration - - Weight 64.4 kg (142 lb) 04/22/2006 3:15 PM WOOD CAR BUILDER Height 182.9 cm (6') 04/22/2006 3:15 PM WOOD CAR BUILDER Body Mass Index 19.26 04/22/2006 3:15 PM WOOD CAR BUILDER documented in this encounter Plan of Treatment Not on file documented as of this encounter Visit Diagnoses Not on filedocumented in this encounter Care Teams Capsule Inspector Relationship Specialty Start Date End Date Lonnie Nazario MD [address] [facility] [address] [place] [address] PCP - General Internal Medicine 04/01/23 documented as of this encounter
--- OUTSIDE RECORDS SUMMARY | 2025-02-02 02:28 | XMS_ITS | Clinical Summary ---
Author Organization [facility] Address [address] [place] [address] Care Team Providers Care Manipulative Therapy Specialist Name Role Phone AlejandraAudelia Timmy PAINT MIXER Primary Care Provider [phone] Allergies Active Allergy Reactions Criticality Noted Date [...] and exercise. Coronary artery disease invo lving [place] coronary artery of [place] heart without angina pectoris 12/04/2020 Assessment & Plan (12/06/2020 4:13 PM CDT): He is currently not having angina. He had an ischemic evaluation earlier in the year with a cardiac catheterization that was unremarkable. Continue medical management of coronary artery disease with dual antiplatelet therapy, Aspirin, clopidogrel, rosuvastatin and metoprolol. 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 Not on file Not [...] Vaccines (1 of 2) 2016 COVID-19 Vaccine (1 - 2023-2 5 season) 2024 Influenza Adult (#1) 2025 Hepatitis A Vaccines Aged Out No long er eligible based on patient's age to complete this topic Meningococcal B Vaccine Aged Out No l onger eligible based on patient's age to complete this topic Meningococcal Vaccine Aged Out No kendall sarika eligible based on patient's age to complete this topic RSV Immunizations Under 20 Months Aged Out No longer eligible based on patient's age to complete this topic Insurance [employer] Care Teams Manipulative Therapy Specialist Relationship Specialty Start Date End Date Audelia Roberts, MARISA [address] [place] [address] PCP - General Nurse Practitioner Family 12/15/23
--- OUTSIDE RECORDS SUMMARY | 2025-02-02 02:28 | XMS_ITS | Encounter Summary ---
Author Organization [facility] Address [address] [facility] [place] [address] Care Team Providers Care Music Teacher Name Role Phone None, Physician Primary Care Provider Audelia Portillo PROBATE CLERK-HOUSING OFFICER Primary Care Provid er Debby Orellana PAClarenceC Unavailable [phone] Encounter Details Date Type Department Care Team (Late st Contact Info) Description 08/13/2023 Telephone [facility] - Infectious Disease [address] [place] [address], [facility] [place] [address] Christiano Altamirano MD [address] [place] [address] [place] [address] Social History Tobacco Use Types Packs/Day Years Used Date Smoking Tobacco: Never Smokeless Tobacco: Never PHQ-2 Answer Date Recorded Patient Health Questionnaire-2 Score 0 08/11/2023 Sex and Gender Information Value Date Recorded Sex Assigned at Not on file Legal Sex Male 5:53 AM GROUP CAPTAIN Gender Identity Not on file Sexual Orientation [...] and schedule. Thanks. Patient Call Back Number: [phone] documented in this encounter Plan of Treatment Not on file documented as of this encounter Visit Diagnoses Not on filedocumented in this encounter Care Teams Music Teacher Relationship Specialty Start Date End Date None, Physician PCP - General 06/24/23 08/18/23 Audelia Roberts, JEROD-HOUSING OFFICER PCP - General Nurse Practitioner 08/19/23 Debby Orellana, PAClarenceC [address] [place] [address] Physician [facility] Infectious Disease 09/22/23 documented as of this encounter
--- OUTSIDE RECORDS SUMMARY | 2025-02-02 02:28 | XMS_ITS | Encounter Summary ---
Author Organization [facility] Address [address] [place] [address] Care Team Providers Care Passenger Car Conductor Name Role Phone Audelia Roberts COMPLIANCE LEAD Primary Care Provider [phone] Encounter Details Date Type Department Care Team (Late st Contact Info) Description 12/05/2024 Results Follow-Up [facility] Cardiology [address] [place] [address] Dominic Loera MD [address] [facility] [address] [place], [place] [id number] NM MPI SPECT (Rest and/or Stress) Multiple Studies Social History Tobacco Use Types Packs/Day Years Used Date Smoking Tobacco: Former Cigarettes Q uit: 05/14/2012 Smokeless Tobacco: Never Comments:Vapes Alcohol Use Standard Drinks/Week Comments No 0 (1 standard drink = 0.6 oz pur e alcohol) Sex and Gender Information Value Date Recorded Sex Assigned at Not on file Legal Sex Male 8:12 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
--- OUTSIDE RECORDS SUMMARY | 2025-02-02 02:28 | XMS_ITS | Encounter Summary ---
Author Organization [facility] Address [address] [facility] [address] [place] [address] Care Team Providers Care Mortgage Analyst Name Role Phone Brian Benedict MD Primary Care Provide r Brian Benedict MD Primary Care Provide r Dre Payton MD Primary Care Provider [phone] Lonnie Nazario MD Primary Care Provide r Audelia Roberts NP Primary Care Provider [phone] Encounter Details Date Type Department Care Team (Late st Contact Info) Description 04/24/2016 Orders Only [facility] ProviderOlvin MD [address] [place] [address] Social History Tobacco Use Types Packs/Day Years Used Date Smoking Tobacco: Every Day Comments:Smoking History Pac ks/day: 10 Packs Alcohol Use Standard Drinks/Week Comments No 0 (1 standard drink = 0.6 oz pur e alcohol) Sex and Gender Information Value Date Recorded Sex Assigned at Not on file Legal Sex Male 8:12 AM RESIDENTIAL MORTGAGE MANAGER Gender Identity Not on file Sexual [...] COVID: Suspected 05/15/2022 05/15/2022 05/15/2022 11:49 AM RESIDENTIAL MORTGAGE MANAGER COVID: Suspected 05/15/2022 05/15/2022 05/15/2022 8:54 PM RESIDENTIAL MORTGAGE MANAGER COVID: Suspected 09/04/2022 09/04/2022 09/04/2022 12:48 PM CDT documented as of this encounter Care Teams Mortgage Analyst Relationship Specialty Start Date End Date Brian Benedict MD [address] [place] [address] PCP - General 07/11/16 02/10/17 Brian Benedict MD [address] [place] [address] PCP - General 10/02/11 07/10/16 Dre Payton MD [address] [place] [address] PCP - General Family Medicine 02/11/17 09/30/22 Lonnie Nazario MD [address] [place] [address] PCP - General Emergency Medicine 10/01/22 09/23/23 Audelia Roberts, HORSE RACE STARTER [address] [place] [address] PCP - General Family Medicine 09/24/23 documented as of this encounter
--- OUTSIDE RECORDS SUMMARY | 2025-02-02 02:28 | XMS_ITS | Encounter Summary ---
Author Organization [facility] Care Team Providers Care Collating Machine Operator Name Role Phone Brian Benedict MD Primary Care Provide r Dre Payton MD Primary Care Provider [phone] Lonnie Nazario MD Primary Care Provide r Audelia Roberts NP Primary Care Provider [phone] Encounter Details Date Type Department Care Team (Latest Contact Info) Description 10/10/2016 Orders Only [facility] ProviderOlvin MD [address] [place] [address] Social History Tobacco Use Types Packs/Day Years Used Date Smoking Tobacco: Every Day Comments:Smoking History Pac ks/day: 10 Packs Alcohol Use Standard Drinks/Week Comments No 0 (1 standard drink = 0.6 oz pur e alcohol) Sex and Gender Information Value Date Recorded Sex Assigned at Not on file 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 Sex Male 8:12 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 Gender Identity Not on file Sexual Orientation [...] COVID: Suspected 05/15/2022 05/15/2022 05/15/2022 11:49 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 COVID: Suspected 05/15/2022 05/15/2022 05/15/2022 8:54 PM FIELD CROP HARVEST CONTRACTOR COVID: Suspected 09/04/2022 09/04/2022 09/04/2022 12:48 PM CDT documented as of this encounter Care Teams Collating Machine Operator Relationship Specialty Start Date End Date Brian Benedict MD [address] [address] PCP - General 07/11/16 02/10/17 Dre Payton MD [address] [place] [address] PCP - General Family Medicine 02/11/17 09/30/22 Lonnie Nazario MD [address] [place] [address] PCP - General Emergency Medicine 10/01/22 09/23/23 Audelia Roberts, MARISA [address] [place] [address] PCP - General Family Medicine 09/24/23 documented as of this encounter
--- OUTSIDE RECORDS SUMMARY | 2025-02-02 02:28 | XMS_ITS | Encounter Summary ---
Author Organization [facility] Address 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
--- OUTSIDE RECORDS SUMMARY | 2025-02-02 02:28 | XMS_ITS | Encounter Summary ---
Author Organization [facility] Address [address] [place] [address] Care Team Providers Care Chief Radiologic Technologist Name Role Phone Lonnie Nazario MD Primary Care Provider + [phone] Encounter Details Date Type Department Care Team (Late st Contact Info) Description 04/11/2006 Outpatient Historical [facility] Support Serv. ([facility]) [address] [place] [address] Chirag Reddy MD Social History Tobacco Use Types Packs/Day Years Used Date Smoking Tobacco: Never Assessed Sex and Gender Information Value Date Recorded Sex Assigned at Not on file Legal Sex Male 3:32 AM CONSULTING ENGINEER Gender Identity Not on file Sexual Orientation Not on file documented as of this encounter Plan of Treatment Not on file documented as of this encounter Visit Diagnoses Not on filedocumented in this encounter Care Teams Chief Radiologic Technologist Relationship Specialty Start Date End Date Lonnie Nazario MD [address] [place] [address] PCP - General Internal Medicine 04/01/23 documented as of this encounter
--- OUTSIDE RECORDS SUMMARY | 2025-02-02 02:28 | XMS_ITS | Encounter Summary ---
Author Organization [facility] Address [address] [place] [address] Care Team Providers Care Cloth Folder Machine Name Role Phone Lonnie Nazario MD Primary Care Provider + [phone] Encounter Details Date Type Department Care Team (Late st Contact Info) Description 04/10/2006 Inpatient Historical [facility] [place] [id number] [place] [id number] Noe Schwartz Other Chest Pain (Primary Dx) Social History Tobacco Use Types Packs/Day Years Used Date Smoking Tobacco: Never Assessed Sex and Gender Information Value Date Recorded Sex Assigned at Not on file Legal Sex Male 3:32 AM [employer] Gender Identity Not on file Sexual Orientation Not on file documented as of this encounter Plan of Treatment Not on file documented as of this encounter Procedures Procedure Name Priority Date/Time Associated Diagnosis Comments LIPID PANEL Routine 04/11/2006 6:01 AM [employer] TROPONIN (W/REFLEX CKMB/CK) Routine 04/11/2006 12:45 AM [employer] TE[employer]ER TROPONIN (W/REFLEX CKMB/CK) Routine 04/10/2006 4:45 PM [employer] TEACHER ED HOLD Routine 04/10/2006 4:45 PM [employer] TE[employer]ER CBC WITH DIFFERENTIAL Routine 04/10/2006 4:45 PM [employer] TE[employer]ER CBC WITH DIFFERENTIAL Routine 04/10/2006 4:45 PM [employer] TE[employer]ER documented in this encounter Results * (ABNORMAL) LIPID PANEL (04/11/2006 6:01 AM [employer] TE[employer]ER) CHOLESTEROL 177 100 - 199 mg/dL INTERFACE SYSTEM TRIGLYCERIDE 166(H) 10 - 149 mg/dL INTERFACE SYSTEM HDL 49 40 - 59 mg/dL INTERFACE SYSTEM CHOL/HDL RATIO 3.6 2.0 - 5.0 INTER FACE SYSTEM LDL CALCULATED 95 <=99 mg/dL INTERFACE SYSTEM LIPID PANEL COMMENT See Below INTERFACE SYSTEM Comment: The adult ATP and pediatric NCEP classifications for lipids are available on the [facility] Intranet at: [email or web address] Select: Lab Policies and Procedures Select: Reference Ranges - Lipids 04/11/2006 6:01 AM [employer]ER Tate Portillo MD CHEMISTRY ORDERABLES Final Resul t Performing Organization Address City/[facility] de Phone Number INTERFACE SYSTEM Refer to clinic/hospital department * TROPONIN (W/REFLEX CKMB/CK) (04/11/2006 12:45 AM [employer]) TROPONIN T <0.01 <=0.03 ng/mL INTERFACE SYSTEM TROPONIN T INTERP Negative INTERFACE SYSTEM 04/11/2006 12:4 5 AM [employer]ER Noe Schwartz CHEMISTRY ORDERABLES Final Re sult Performing Organization Address [facility] Co de Phone Number INTERFACE SYSTEM Refer to clinic/hospital department * ED HOLD (04/10/2006 4:45 PM [employer] TE[employer]ER) SPECIMEN HOLD, BLOOD 7 days INTERFACE SYSTEM 04/10/2006 4:45 PM [employer] TE[employer]ER Historical Provider CHEMISTRY ORDERABLES Final R esult Performing Organization Address [facility] Co de Phone Number INTERFACE SYSTEM Refer to clinic/hospital department * CBC WITH DIFFERENTIAL (04/10/2006 4:45 PM [employer] TE[employer]ER) NEUTROPHILS 61 45 - 70 % INTERFAC [...] 0.20 K/uL INTERFACE SYSTEM 04/10/2006 4:45 PM [employer] TE[employer]ER Historical Provider HEMATOLOGY ORDERABLES Final Result Performing Organization Address City/[facility] Phone Number INTERFACE SYSTEM Refer to clinic/hospital department * (ABNORMAL) CBC WITH DIFFERENTIAL (04/10/2006 4:45 PM [employer] TE[employer]ER) HEMATOCRIT 46.5 40.0 - 48.0 % INTERFACE [...] 12.4 fL INTERFACE SYSTEM 04/10/2006 4:45 PM [employer] TE[employer]ER [facility] Provider HEMATOLOGY ORDERABLES Final Result Performing Organization Address [facility] Phone Number INTERFACE SYSTEM Refer to clinic/hospital department * TROPONIN (W/REFLEX CKMB/CK) (04/10/2006 4:45 PM [employer]ER) TROPONIN T <0.01 <=0.03 ng/mL INTERFACE SYSTEM TROPONIN T INTERP Negative INTERFACE SYSTEM 04/10/2006 4:45 PM [employer] TE[employer]ER us Historical Provider CHEMISTRY ORDERABLES Final R esult INTERFACE SYSTEM Refer to clinic/hospital department documented in this encounter Visit Diagnoses Diagnosis Other chest pain- Primary documented in this encounter Care Teams Cloth Folder Machine Relationship Specialty Start Date End Date Lonnie Nazario MD [address] [place] [id number] PCP - General Internal Medicine 04/01/23 documented as of this encounter
[2025-02-02 07:36] LABS: Hematocrit 46.5 % (42.0-52.0); Hemoglobin 15.9 g/dL (14.0-18.0); Immature Granulocyte Percent A 0.7 % (0-0.5); Lymphocytes Absolute Auto 2.07 K/mm3 (0.9-3.2); Mean Corpuscular HGB Conc 34.2 g/dl (32-36); Mean Corpuscular Hemoglobin 30.5 pg (26-34); Mean Corpuscular Volume 89.1 fl (80-100); Nucleated Red Blood Cells Absolute Auto 0.000 K/mm3 (0.0-0.012); Nucleated Red Blood Cells Perc 0.0 % (0.0-0.2); Platelet Count Result 168 k/mm3 (150-375); Red Blood Count 5.22 M/mm3 (4.6-6.20); White Blood Count 7.1 K/mm3 (4.5-10.0)
[2025-02-02 08:37] LABS: Anion Gap 7 mmol/L (4-12); Blood Urea Nitrogen 18 mg/dL (9-20); Calcium 9.4 mg/dL (8.4-10.2); Carbon Dioxide 28 mmol/L (22-30); Chloride 102 mmol/L (98-107); Estimated CRCL calculation 99 ml/min; Estimated Glomerular Filt Rate > 60; Glucose 93 mg/dL (65-110); Potassium 4.4 mmol/L (3.4-5.0); Sodium 137 mmol/L (137-145)
--- NOTE | 2025-02-02 08:44 | PM.IMHP ---
H&P: HPI History of Present Illness Date/Time: 02/02/25 08:44 Chief Complaint: Abnormal stress test Narrative: 51-year-old man with CAD status post PCI and hyperlipidemia who has been having intermittent chest discomfort at rest found to have abnormal transient ischemic dilatation on nuclear stress testing with no perfusion defects who continued to persistently have chest discomfort at rest for which a cardiac catheterization with possible PCI has been recommended. Review of Systems Cardiovascular: Cardiovascular: Reports as per HPI Respiratory: Respiratory: Reports as per HPI [facility] Past Medical History Medical History Right foot drop Lumbosacral radiculopathy at L5 Left foot drop Umbilical hernia without obstruction and without gangrene Encounter for other specified surgical aftercare Antiplatelet or antithrombotic long-term use Trigger thumb of right hand CAD (coronary artery disease) Rotator cuff tear, right Vision changes Weight gain Traumatic tear of right rotator cuff Surgical History Surgical History History of back surgery x6 H/O discectomy S/P right rotator cuff repair Hx of heart artery stent x2 ( 1 in 2004, 1 in 2015) Family History Family History (Updated 12/20/24 @ 15:22 by Audelia Roberts, JEROD, DIRECTOR OF MATERNITY SERVICES-C) Father Family history of cardiovascular disease, Onset Age: 81 Family history of malignant neoplasm Family history of lymphoma Mother Family history of malignant neoplasm of uterus Sibling Bladder cancer Sibling Bladder cancer Social History Social History Smoking status: Never smoker Second hand tobacco smoke exposure: No Smoking end date: 04/13/12 Alcohol intake: never Substance use: current Substance use type: marijuana Do You Feel Safe in your Home?: Yes Current Housing: Decline to Answer Concerned About Future Housing: Decline to Answer Difficulty Paying Gas/Electric Bills: Decline to Answer Difficulty Paying for Meds: Decline to Answer Currently Unemployed: Decline to Answer Education: Decline to Answer Difficulty w/ Childcare or Family Care: Decline to Answer Living arrangements: with family Gender identity (if verbalized by the patient): Male Spiritual care concerns: No Meds Home Medications and Allergies Home Medications ?Medication ?Instructions ?Recorded ?Confirmed ?Type Lactobacillus 40-Bifidobact 1 cap PO DAILY 02/17/19 02/01/25 History 3-S.thermophilus 100 billion cell capsule (Probiotic) aspirin 81 mg tablet,delayed 81 mg PO DAILY 02/17/19 02/02/25 History release (Aspir-Low) metoprolol succinate 25 mg 25 mg PO DAILY 02/17/19 02/02/25 History tablet,extended release 24 hr rosuvastatin 5 mg tablet 5 mg PO DAILY 02/17/19 02/02/25 History ascorbic acid (vitamin C) 500 mg 2,000 mg PO DAILY 02/25/23 02/01/25 History capsule,extended release (Vitamin C) pregabalin 50 mg capsule 50 mg PO BID #180 caps 12/20/24 02/02/25 Rx alprazolam 0.5 mg tablet 0.5 mg PO BID PRN anxiety #60 tabs 01/16/25 02/01/25 Rx Allergies Allergy/AdvReac Type Severity Reaction Status Date / Time No Known Allergies Allergy Verified 02/02/25 07:20 Vital Signs Vital Signs - 24 hr 02/02/25 07:22 Temperature 36.3 C L Pulse Rate 70 Respiratory Rate 16 Blood Pressure 130/91 H Pulse Oximetry 97 Oxygen Delivery Room Air Exam Const: General: comfortable HENMT: Mouth: Yes moist mucous membranes Eyes: EOM: EOMs intact bilaterally Neck: Neck: no JVD Resp: Effort & Inspection: normal respiratory effort Cardio: Rate: regular rate Extrem: General: no pedal edema H&P: Results Labs Labs: Short CBC 02/02/25 Range/Units 07:19 WBC 7.1 (4.5-10.0) K/mm3 Hgb 15.9 (14.0-18.0) g/dL Hct 46.5 (42.0-52.0) % Plt Count 168 (150-375) k/mm3 BMP 02/02/25 08:19 Sodium 137 Potassium 4.4 Chloride 102 Carbon Dioxide 28 BUN 18 Creatinine 0.90 Glucose 93 Calcium 9.4 Assessment and Plan Assessment and plan (1) Abnormal stress test: Code(s): R94.39 - Abnormal result of other cardiovascular function study Status: Acute Plan 51-year-old man with CAD status post PCI and hyperlipidemia who has been having intermittent chest discomfort at rest found to have abnormal transient ischemic dilatation on nuclear stress testing with no perfusion defects who continued to persistently have chest discomfort at rest for which a cardiac catheterization with possible PCI has been recommended -after discussing risks, benefits, alternatives, and all questions answered, patient agreed to proceed for the left heart catheterization with possible PCI
--- NOTE | 2025-02-02 08:47 | WPDMODSED ---
Moderate Sedation Note-Pt Data Patient Data Allergies Allergy/AdvReac Type Severity Reaction Status Date / Time No Known Allergies Allergy Verified 02/02/25 07:20 Home Medications ?Medication ?Instructions ?Recorded ?Confirmed ?Type Lactobacillus 40-Bifidobact 1 cap PO DAILY 02/17/19 02/01/25 History 3-S.thermophilus 100 billion cell capsule (Probiotic) aspirin 81 mg tablet,delayed 81 mg PO DAILY 02/17/19 02/02/25 History release (Aspir-Low) metoprolol succinate 25 mg 25 mg PO DAILY 02/17/19 02/02/25 History tablet,extended release 24 hr rosuvastatin 5 mg tablet 5 mg PO DAILY 02/17/19 02/02/25 History ascorbic acid (vitamin C) 500 mg 2,000 mg PO DAILY 02/25/23 02/01/25 History capsule,extended release (Vitamin C) pregabalin 50 mg capsule 50 mg PO BID #180 caps 12/20/24 02/02/25 Rx alprazolam 0.5 mg tablet 0.5 mg PO BID PRN anxiety #60 tabs 01/16/25 02/01/25 Rx Current Medications: Active Medications Sodium Chloride (Normal Saline Iv) 500 mls @ 100 mls/hr IV CONT .Q5H TOMAS Sedation/Anesthesia: No previous sedation/anesthesia problems (including family history). [facility] Past Medical History Medical History Right foot drop Lumbosacral radiculopathy at L5 Left foot drop Umbilical hernia without obstruction and without gangrene Encounter for other specified surgical aftercare Antiplatelet or antithrombotic long-term use Trigger thumb of right hand CAD (coronary artery disease) Rotator cuff tear, right Vision changes Weight gain Traumatic tear of right rotator cuff Surgical History Surgical History History of back surgery x6 H/O discectomy S/P right rotator cuff repair Hx of heart artery stent x2 ( 1 in 2004, 1 in 2015) Family History Family History (Updated 12/20/24 @ 15:22 by Audelia Roberts, ACCOUNT ASSOCIATE, BULLDOZER/LOADER/COMPACTOR/SCRAPER-C) Father Family history of cardiovascular disease, Onset Age: 81 Family history of malignant neoplasm Family history of lymphoma Mother Family history of malignant neoplasm of uterus Sibling Bladder cancer Sibling Bladder cancer Social History Social History Smoking status: Never smoker Second hand tobacco smoke exposure: No Smoking end date: 04/13/12 Alcohol intake: never Substance use: current Substance use type: marijuana Do You Feel Safe in your Home?: Yes Current Housing: Decline to Answer Concerned About Future Housing: Decline to Answer Difficulty Paying Gas/Electric Bills: Decline to Answer Difficulty Paying for Meds: Decline to Answer Currently Unemployed: Decline to Answer Education: Decline to Answer Difficulty w/ Childcare or Family Care: Decline to Answer Living arrangements: with family Gender identity (if verbalized by the patient): Male Spiritual care concerns: No Mod Sed Physical Exam Physical Exam Pre Procedural Exam: Normal: Lungs, Heart Size, Heart Rate and Heart Rhythm Hours since solid foods: 12 Hours since liquid intake: 12 Mallampati Classification: class III Internal Medicine - PN: Obj Da Vital Signs Vital Signs: Vital Signs - 24 hr 02/02/25 07:22 Temperature 36.3 C L Pulse Rate 70 Respiratory Rate 16 Blood Pressure 130/91 H Pulse Oximetry 97 Oxygen Delivery Room Air Meds/Results Medications: Active Medications Generic Name Dose Route Start Last Admin Trade Name Freq PRN Reason Stop Dose Admin Sodium Chloride 500 mls @ 100 mls/hr 02/02/25 07:00 Normal Saline Iv IV CONT .Q5H TOMAS Labs 02/02/25 07:19 02/02/25 08:19 Labs: Laboratory Results - last 24 hr 02/02/25 02/02/25 07:19 08:19 WBC 7.1 RBC 5.22 Hgb 15.9 Hct 46.5 MCV 89.1 MCH 30.5 MCHC 34.2 RDW 12.9 Plt Count 168 MPV 10.0 Immature Gran % (Auto) 0.7 H Neut % (Auto) 60.0 Lymph % (Auto) 29.2 Green % (Auto) 7.1 Eos % (Auto) 2.4 Baso % (Auto) 0.6 Lymph # (Auto) 2.07 Green # (Auto) 0.5 Eos # (Auto) 0.2 Baso # (Auto) 0.0 Abs Immat Gran (auto) 0.05 H Absolute Neuts (auto) 4.3 Absolute Nucleated RBC 0.000 Nucleated RBC % 0.0 Sodium 137 Potassium 4.4 Chloride 102 Carbon Dioxide 28 Anion Gap 7 BUN 18 Creatinine 0.90 Estim Creat Clear Calc 99 Estimated GFR > 60 Glucose 93 Calcium 9.4 ASA Classification/Sedation ASA Classification/Sedation ASA Class: III Emergent: No Risks: Risks, benefits and alternatives explained and patient/family accepted plan for sedation. Patient re-evaluated immediately prior to sedation.
--- NOTE | 2025-02-02 09:09 | WPDCARDPROC ---
Cardiac Cath Procedure Note Date of procedure:: 02/02/25 Performing physician:: CATHETERIZATION LABORATORY REPORT Procedure Date:02/02/2025 Referring Physician:Dr. Loera Anesthesia: Versed and Fentanyl were ordered and given in my presence at 0852, procedure ended at 0907. Supervision of nurse, Angela Mcbride monitored moderate sedation with 2mg Versed and 200mcg Fentanyl was provided for 15 minutes. Pre-op Diagnosis: Abnormal stress test Post-op Diagnosis: Abnormal stress test Procedure(s): Left heart catheterization with coronary angiography Access Site: Right radial artery Brief History and Clinical Indications: 51-year-old man with CAD status post PCI and hyperlipidemia who has been having intermittent chest discomfort at rest found to have abnormal transient ischemic dilatation on nuclear stress testing with no perfusion defects who continued to persistently have chest discomfort at rest for which a cardiac catheterization with possible PCI has been recommended All risks, benefits and alternatives to left heart catheterization with or without percutaneous coronary intervention was discussed at length with the patient. Risk of complications including but not limited to bleeding, infection, arrhythmia, stroke, worsening kidney function, blood loss, groin hematoma, limb loss, emergency coronary artery bypass grafting, and even were discussed with the patient and all questions were answered. The patient understood and wished to proceed. Time out called, patient name, date of , medical record number, allergies, procedure performed, identify Paper Testing Supervisor, patient and staff member concurred with accurate data, procedure carried on. Findings: LEFT HEART CATHETERIZATION FINDINGS: 1. Left main: The left main coronary artery is widely patent without any significant obstructive disease. 2. Left anterior descending: The LAD in its proximal body has 10% stenosis. There are overlapping patent stents in the mid LAD. 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 D2 is a very small-caliber vessel that is jailed with 99% ostium stenosis. 3. Left circumflex: The left circumflex artery provides 2 OM branches. OM1 has 30-40% stenosis proximally. OM2 with luminal irregularities 4. Right coronary artery: The RCA is a large dominant vessel with 10% proximal stenosis. The remainder of the vessel and its branches have with irregularities. 5. Left ventricle: A. End-diastolic pressure 27 mmHg. B. LV gram deferred. C. No significant gradient across aortic valve on catheter pullback. 6. Opening AO pressure 112/82 and closing AO pressure 111/96 Description of Procedure: Informed consent signed and placed in the chart. Patient transferred to yard labor supervisor room. Prepped and draped in usual sterile fashion. 2% lidocaine injected subcutaneously in right wrist area. 22-gauge venipuncture catheter used to access the right radial artery with the Seldinger technique. 6-FR slender sheath placed in right radial artery. Nitroglycerin 200mcg, Verapamil 2.5mg, and Heparin 5000U was given intraarterial through the sheath. J wire advanced under fluoroscopy. 5F TIG diagnostic catheter crossed into the left ventricle for LVEDP and aortic valve gradients. After pull back, it was used to engage the right coronary artery. The catheter was switched out for JL3.5 to engage the Left Main Coronary Artery. Multiple orthogonal angiogram obtained and reviewed Hemostasis was achieved by application of TR band. Assessment: Moderate CAD Post Operative Condition: Stable No significant blood loss Disposition: Home Plan: The above findings were discussed with the referring physician. Continue aggressive medical therapy and risk factor modification. S[facility] Rogers Interventional Cardiology
== END 2025-02-02 12:21 | disposition home or self-care (01) ==
PROVIDERS: PCP Nurse Practitioner Family; Visit Provider Internal Medicine
PROC: 4A023N7 Measurement of Cardiac Sampling and Pressure, Left Heart, Percutaneous Approach (ICD-10-PCS; CPT 93452; principal; 2025-02-02 08:30)
DX: I25.10 Atherosclerotic heart disease of native coronary artery without angina pectoris (principal); R94.39 Abnormal result of other cardiovascular function study; T82.897A Other specified complication of cardiac prosthetic devices, implants and grafts, initial encounter; Q24.5 Malformation of coronary vessels; Y83.1 Surgical operation with implant of artificial internal device as the cause of abnormal reaction of the patient, or of later complication, without mention of misadventure at the time of the procedure
CPT/HCPCS: 36415; 80048; 85025; 93458; C1769; C1887; C1894; J1644; J2003; J2250; J2305; J2405; J3010; J7040